=== PATIENT | female | born 1990 | race Caucasian/White ===

== ENCOUNTER 2018-07-17 17:10 | Outpatient (REF) | payer BC, SELFPAY ==
[2018-07-21 14:07] LABS: Chlamydia Result Negative; GC Result Negative; Specimen Description CERVIX
== END 2018-07-17 17:30 ==
LOC: LBN 17:10
PROVIDERS: Visit Provider Nurse Practitioner Women's Health
DX: Z11.3 Encounter for screening for infections with a predominantly sexual mode of transmission (principal)
CPT/HCPCS: 87491; 87591

== ENCOUNTER 2019-07-09 15:13 | Outpatient (REF) | payer BC, SELFPAY ==
[2019-07-12 08:26] LABS: HSV 1 DNA Result Negative (Negative)
[2019-07-13 12:29] LABS: HSV 2 DNA Result Negative (Negative)
== END 2019-07-09 15:33 ==
LOC: LBN 15:13
PROVIDERS: Visit Provider Nurse Practitioner Family
DX: N90.9 Noninflammatory disorder of vulva and perineum, unspecified (principal)
CPT/HCPCS: 87529

== ENCOUNTER 2019-08-24 12:17 | Outpatient (CLI) | payer BC, SELFPAY ==
[2019-08-24 14:03] LABS: TSH (W/Ref FT4) 28.58 uIU/mL (0.36-3.74)
[2019-08-24 14:20] LABS: FREE T4 0.81 ng/dL (0.76-1.46)
== END 2019-08-24 12:37 ==
PROVIDERS: Visit Provider Obstetrics & Gynecology
DX: E03.9 Hypothyroidism, unspecified (principal)
CPT/HCPCS: 36415; 84439; 84443

== ENCOUNTER 2020-09-20 10:53 | Outpatient (CLI) | payer BC, SELFPAY ==
[2020-09-20 12:50] LABS: ALT 40 U/L (14-59); AST 16 U/L (15-37); Albumin 4.2 g/dL (3.4-5.0); Alkaline Phosphatase 70 U/L (46-116); Anion Gap 9.8 mmol/L (3-11); BUN 12 mg/dL (7-18); Bilirubin, Total 0.7 mg/dL (0.2-1.0); CO2 24.2 mmol/L (21.0-32.0); CREATININE 0.8 mg/dL (0.55-1.02); Calcium 9.3 mg/dL (8.5-10.1); Calculated LDL 123 mg/dL (<100); Chloride 101 mmol/L (98-107); Cholesterol 198 mg/dL (<200); Glucose 83 mg/dL (74-106); HDL Cholesterol 42 mg/dL (40-60); Potassium 4.2 mmol/L (3.5-5.1); Sodium 135 mmol/L (136-145); TSH (W/Ref FT4) 22.77 uIU/mL (0.36-3.74); Total Protein 7.7 g/dL (6.4-8.2); Triglyceride 165 mg/dL (<150)
[2020-09-20 13:18] LABS: FREE T4 0.69 ng/dL (0.76-1.46)
== END 2020-09-20 10:54 | disposition home or self-care (01) ==
LOC: LOS 10:53
DX: Z00.00 Encounter for general adult medical examination without abnormal findings (principal); E03.9 Hypothyroidism, unspecified; Z13.220 Encounter for screening for lipoid disorders
CPT/HCPCS: 36415; 80053; 80061; 84439; 84443

== ENCOUNTER 2021-03-30 04:26 | Outpatient (CLI) | payer BC, SELFPAY ==
--- NOTE | 2021-03-30 15:34 | NS.NUTBLAN_ITS ---
Date of service: 03/30/21 Time of Service: 15:34 Nutritional Consult ASSESSMENT: Norma was referred for Medical Nutrition Therapy for weight management. 5'2 240 lbs, BMI 40 . PMH: morbid obesity, hypothyroidism, HTN, sleep apnea. Meds: levothyroixine 75 mg qd, HCTZ. Dx with sleep apnea but does not use CPAP at home. Recently restarted levothyroxine, had stopped it for a couple months. Norma reports her usual body weight is 195 lbs, has gained 45-50 lbs in last couple years (after starting current job). Follows weight watchers (31 points daily) with no weight loss in last year. Food record indicates she typically skips breakfast and prepares her lunch and dinner. Most food choices tend to be well balanced including protein, non starchy vegetables and healthy fats. Norma walks 2 miles a day. Suspect that Norma may be insulin resistant and therefore unable to lose weight despite eating well and exercing. NUTRITIONAL DIAGNOSIS: Morbid obesity with possible insulin resistance INTERVENTION: Provided education on lower carb, higher protein diet with 3 meals and 2 snacks daily meeting [id number] kcal, 80-100g carb, 60-70 g protein, 45-55 g fat. Continue to walk 7-14 miles weekly. Log meals on maryse (Total [employer]). Goal weight loss: 5-10 lbs per month with goal weight of 195 lbs in 6 months. Reviewed option of weight loss surgery if unable to meet weight loss goals in next 6 months. Encouraged Norma to use CPAP machine to aid in weight loss and to continue to take meds as prescribed for hypothryoidism. MONITORING AND EVALUATION: Check A1C at next blood draw to rule out PCOS/pre DM follow up scheduled for 05/04/21 at 3 pm Time Spent in Nutritional Counseling and Treatment: 60
== END 2021-03-30 04:27 | disposition home or self-care (01) ==
PROVIDERS: Visit Provider Dietitian, Registered
DX: E66.01 Morbid (severe) obesity due to excess calories (principal); E03.9 Hypothyroidism, unspecified; I10 Essential (primary) hypertension; Z68.41 Body mass index [BMI] 40.0-44.9, adult; Z71.3 Dietary counseling and surveillance
CPT/HCPCS: 97802

== ENCOUNTER 2021-09-15 14:57 | Outpatient (REF) | payer BC, SELFPAY ==
--- NOTE | 2021-09-15 14:30 | PAPFT_PTH ---
PATIENT: Norma Perez LOC: [facility] U#:[id number] AGE/SX: 30/F ROOM: RE09/15/[address]: UZAIR Richard : 1990 BED: DIS: 09/15/2021 SPEC #: [id number] RECD: 09/15/21 17:59 STATUS: SAHARA REJorge #: [id number] LILLIAM: 09/15/21 14:[address]: Edda Bai DEPT: [facility] Cytology RECD BY: Fariba Samayoa ENTERED: 09/15/21 18:00 SP TYPE: PAPFT OTHR DR: Hailee Lou APRN Tissues: 1 - CX/ENDOCX FOR PAP SMEARS Procedures: PAP THIN PREP/UVM Screening HPV DNA PROBE Comments: [id number]
== END 2021-09-15 14:58 | disposition home or self-care (01) ==
LOC: LBN 14:57
PROVIDERS: Visit Provider Nurse Practitioner Family
DX: Z12.4 Encounter for screening for malignant neoplasm of cervix (principal); Z11.51 Encounter for screening for human papillomavirus (HPV)
CPT/HCPCS: 88142; 87624

== ENCOUNTER 2021-10-15 10:02 | Emergency (ER) | payer BC, SELFPAY ==
[2021-10-15 10:07] VITALS: BP 148/78; PULSE 84; RESP 18; TEMP 36.6; O2SAT 97
--- NOTE | 2021-10-15 10:15 | DI.CT_ITS ---
Exam(s) CT ABDOMEN PELVIS W EXAM: CT ABDOMEN PELVIS W CLINICAL HISTORY: RUQ and epigastric pain. TECHNIQUE: Imaging Protocol: Axial computed tomography images with coronal and sagittal reformatted images were created and reviewed CONTRAST MATERIAL: Intravenous: Omnipaque 100cc Oral: None COMPARISON: No exams were available for comparison FINDINGS: VISUALIZED LUNG BASES: There is a 5 millimeter noncalcified nodule in the left lung base, specificall y in the lingular segment. No pleural effusions. ABDOMEN: There is no ascites. There is mild nonspecific streaking in the fat just anterior to the abdominal a paige between the takeoff points of the celiac and superior mesenteric arteries. No lymphadenopathy a t this level nor other para-aortic adenopathy. These vessels otherwise appear unremarkable. No evid ence of and significant atherosclerotic narrowing of these vessels nor SMA embolus. No ischemic appe aring bowel loops. There appears to be mild circumferential thickening of the duodenum, not associated with surrounding inflammatory change. No adjacent free air. No diverticulum. LIVER: Liver is hypodense implying steatosis. No discrete focal hepatic lesions. GALLBLADDER/BILIARY: No obvious gallbladder pathology. CBD is not dilated. PANCREAS: No evidence of pancreatic mass nor dilatation of the pancreatic duct. SPLEEN: Spleen is not enlarged. No obvious intrasplenic lesions. Splenic and portal veins are paten t. ADRENALS: There are no significant adrenal masses. KIDNEYS:No cysts evident. No solid renal masses. No calculi nor hydronephrosis.. ABDOMINAL AORTA: Abdominal aorta is not enlarged. LYMPH NODES:There is no retroperitoneal nor paraaortic adenopathy. ABDOMINAL WALL: No evidence of significant anterior abdominal wall nor inguinal hernia. GI: There is no evidence of bowel obstruction, free air, nor abscess. PELVIS: GI: Appendix is difficult to locate but there is no evidence of obvious acute appendicitis.No evidenc e of sigmoid diverticulitis. LYMPH NODES: There is no intrapelvic nor inguinal adenopathy. REPRODUCTIVE: Uterus size is normal. There is an IUD which appears to be in satisfactory position in the endometrial canal. Ovaries appear age-appropriate. No free fluid in the pelvis URINARY BLADDER: No calculi nor obvious masses evident OSSEOUS: No significant osseous lesions. Sacroiliac joints unremarkable. IMPRESSION: 1. There appears to be mild circumferential thickening of the duodenum without obvious surrounding in flammatory change. Possibly an element of duodenitis. 2. Mild nonspecific streaking anterior to the abdominal aorta between the takeoff points of the john c and superior mesenteric arteries. 3. IUD in satisfactory position within the uterine canal. No abnormal adnexal findings. No free flu id. 4. Incidental note of 5 millimeter noncalcified nodule in the left lung base. No pleural effusions. RADIATION DOSE DELIVERED: 1,416.64mGy.cm Total DLP DATA REPOSITORY: All CT scans at this facility are submitted to the National Radiology Data Registry (NRDR) Dose Index Registry (DIR) with the [employer] (ACR). RADIATION OPTIMIZATION: All CT scans at this facility use at least one of these dose optimization te chniques: automated exposure control; mA and/or kV adjustment per patient size (includes targeted exa ms where dose is matched to clinical indication); or iterative reconstruction.
--- NOTE | 2021-10-15 10:23 | ED.GENADUL_ITS ---
Discharge Plan Disposition Patient Disposition: HOME Condition: Stable Discharge Details Clinical Impression: Gastritis Primary Care Provider: Hailee Lou ED Provider: Fariba Timmons Home Meds and New Rx's Prescriptions: New sucralfate [Carafate] 1 gram tablet 1 g PO BID Qty: 60 0RF famotidine [Pepcid] 20 mg tablet 20 mg PO DAILY Qty: 14 0RF omeprazole magnesium [Prilosec OTC] 20 mg tablet,delayed release (DR/EC) 20 mg PO DAILY Qty: 30 0RF dicyclomine 20 mg tablet 20 mg PO TID Qty: 14 0RF ondansetron 4 mg tablet,disintegrating 4 mg PO BID-TID PRNQty: 10 0RF Continued levonorgestrel [Mirena] 20 mcg/24 hr (5 years) intrauterine device 1 insert IY ONCE 0RF levothyroxine [Synthroid] 75 mcg tablet 75 mcg PO DAILY Qty: 30 1RF valacyclovir [Valtrex] 1 gram tablet 1,000 mg PO Q12H PRN0RF hydrochlorothiazide 25 mg tablet 25 mg PO DAILY Qty: 30 3RF metronidazole 500 mg tablet 500 mg PO BID Qty: 14 0RF Discharge Instructions Instructions: Gastritis (ED) Additional Instructions: Have your urine rechecked by your doctor as there is some slight blood in it at your next visit You have a small nodule in your lung, this should be followed by your pcp Take the Carafate, Pepcid, and Prilosec as prescribed These medications will likely help your symptoms I am also writing you for nausea medication should you need it The Bentyl is for pain, if you have discomfort you may take the medication, if you start to become constipated, I recommend discontinuing this medication Schedule appointment with the surgeon listed below for endoscopy and return earlier should you have new or worsening complaints Referrals: Magi Bolanos MD [ [facility]YSICIAN] - 1 week Medical Decision Making Patient made aware regarding nodule in her lingula She also has 3-5 red blood cells She is instructed have your urinalysis rechecked by her primary care physician and follow-up on the pulmonary nodule She is feeling marked improvement She received 1 L of normal saline in the emergency department, antiemetic, tolerated p.o. challenge Return precautions discussed patient understanding, discharged home stable condition with antiemetic, CT scan shows evidence of duodenitis, placed on Pepcid, Prilosec, Carafate Surgery referral for endoscopy Discharge home in stable condition with stable Medical Records Medical records reviewed: Yes I reviewed the patient's medical records. Lab Data Lab results reviewed: Yes I reviewed the patient's lab results. HPI General Date/Time Provider Initiated Documentation: 10/15/21 10:11 . HPI Narrative: This 30-year-old female with past medical history of hypertension, hyperlipidemia presents with 3 days of abdominal pain. Followed by nausea and vomiting with diarrhea. Denies any known sick contacts. Denies any new medications. Denies any recent antibiotic use or spoiled food consumption. States that her abdominal pain was initially intermittent now constant. Denies fever. Denies cough or shortness of breath. Able to urinate without difficulty. Related Data Home Medications Medication Instructions Recorded Confirmed levonorgestrel 20 mcg/24 hours (7 1 insert IY ONCE 07/10/18 10/15/21 yrs) 52 mg intrauterine device (Mirena) levothyroxine 75 mcg tablet 75 mcg PO DAILY #30 tab 09/20/20 10/15/21 (Synthroid) valacyclovir 1 gram tablet 1,000 mg PO Q12H PRN tab 03/13/21 10/15/21 (Valtrex) hydrochlorothiazide 25 mg tablet 25 mg PO DAILY #30 tab 03/28/21 03/28/21 metronidazole 500 mg tablet 500 mg PO BID #14 tab 09/15/21 09/15/21 dicyclomine 20 mg tablet 20 mg PO TID #14 tab 10/15/21 famotidine 20 mg tablet (Pepcid) 20 mg PO DAILY #14 tab 10/15/21 omeprazole magnesium 20 mg 20 mg PO DAILY #30 tab 10/15/21 tablet,delayed release (Prilosec OTC) ondansetron 4 mg disintegrating 4 mg PO BID-TID PRN #10 tab 10/15/21 tablet sucralfate 1 gram tablet (Carafate) 1 g PO BID #60 tab 10/15/21 Previous Rx's Medication Instructions Recorded levothyroxine 75 mcg tablet 75 mcg PO DAILY #30 tab 09/20/20 (Synthroid) hydrochlorothiazide 25 mg tablet 25 mg PO DAILY #30 tab 03/28/21 metronidazole 500 mg tablet 500 mg PO BID #14 tab 09/15/21 dicyclomine 20 mg tablet 20 mg PO TID #14 tab 10/15/21 famotidine 20 mg tablet (Pepcid) 20 mg PO DAILY #14 tab 10/15/21 omeprazole magnesium 20 mg 20 mg PO DAILY #30 tab 10/15/21 tablet,delayed release (Prilosec OTC) ondansetron 4 mg disintegrating 4 mg PO BID-TID PRN #10 tab 10/15/21 tablet sucralfate 1 gram tablet (Carafate) 1 g PO BID #60 tab 10/15/21 Allergies Allergy/AdvReac Type Severity Reaction Status Date / Time sertraline AdvReac Mild diarrhea Verified 10/15/21 10:11 environmental allergies AdvReac Other (See Uncoded 10/15/21 10:11 Comment) General Stated Complaint: Abd Prob FRANK: 3 Review of Systems All systems reviewed & are unremarkable except as noted in HPI and below PFSH All Active Problems (Updated 10/15/21 @ 11:42 by SALTY Contreras) Gastritis (Acute) COVID-19 (Acute ~08/15/21) Essential hypertension (Acute) Increased body mass index (BMI) (Acute) Nasal sinus congestion (Acute) Bacterial vaginosis (Acute) Depression with anxiety (Acute) Rash and nonspecific skin eruption (Acute) IUD surveillance (Chronic) Herpes genitalis in women (Chronic) Hypothyroid (Chronic) Medical History Herpes genitalis in women Hypothyroid Increased body mass index (BMI) IUD surveillance Nasal sinus congestion Social History (Updated 03/28/21 @ 16:17 by Marcelle Redd) Smoking/Tobacco Use Status: Never Second Hand Exposure: No Smoking risk assessment performed?: Yes Alcohol Intake: current Alcohol Intake frequency: a few times a month Alcohol type: beer, wine and hard liquor Drug use: Never Substance use type: does not use Counseling given: No Counseling provided: none Caregiver/Support person: No Household members: significant other Communication Needs: None 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 [employer] Pets and animals: Yes Pets and animals: dog(s) Sexually active: Yes Do you think of yourself as: straight/heterosexual Current gender identity: male What is your relationship status?: living with partner How often do you talk on the phone with friends or family?: three or more times per week How often do you get together with friends or relatives?: once per week Do you belong to any clubs or organized social groups?: no Panel score (0-1 are the most socially isolated patients): 2 What type of physical activity do you participate in: walking Duration: 15-30 minutes/day Frequency: 5-6 times per week Kenna/Baptist: Jain Seatbelt use: always Helmet use: Yes Helmet use: always Drive intox or ride w/intox van driver helper: No Do you feel safe at home: Yes Do you feel safe in your relationship?: Yes Female Reproductive History Menstrual Age of Menarche: 15 Duration of menses: 3-5 days control method: progestin IUCD (Mirena IUD inserted by Rosa Vallejo NP [id number] EXP=10/2020) History History 1 Para Hx # Term Pregnancies Multiple births Hx # Pregnancies Ectopic pregnancies AB induced Hx Number of Living Children 0 AB spontaneous Exam Const General: cooperative, comfortable and no acute distress Orientation: alert and oriented x3 Resp Effort & Inspection: normal respiratory effort Cardio Rate: regular rate GI Inspection: normal to inspection Other: Bilateral upper quadrant abdominal tenderness, no rebound or guarding No CVA tenderness, no abdominal bruit or pulsatile mass Skin General skin exam: no rashes or lesions noted Neuro General: patient alert and patient oriented x3 Course Vital Signs Vital signs: Vital Signs Temperature 36.6 C 10/15/21 10:07 Pulse 84 10/15/21 10:07 Respiratory Rate 18 10/15/21 10:07 Blood Pressure 148/78 H 10/15/21 10:07 Pulse Oximetry 97 10/15/21 10:07 Temperature 36.6 C 10/15/21 10:07 Temperature Source Temporal Artery Scan 10/15/21 10:07 Pulse 84 10/15/21 10:07 Respiratory Rate 18 10/15/21 10:07 Respiratory Effort Non-Labored 10/15/21 10:12 Blood Pressure 148/78 H 10/15/21 10:07 Blood Pressure Position Sitting 10/15/21 10:07 Pulse Oximetry 97 10/15/21 10:07 Oxygen Delivery Method Room Air 10/15/21 10:07 Oxygen Flow Rate 0 10/15/21 10:07 PAWSS Have you Been Recently Intoxicated or Drunk Within the Last 30 days?: No Have you Ever Experienced Previous Episodes of Alcohol Withdrawal?: No Have you ever Experienced Withdrawal Seizures?: No Have you ever Experienced Delirium Tremens(DT)s?: No Have you ever undergone Alcohol Rehabilitation Treatment (i.e, inpt ot outpatient treatment programs)?: No Have you ever Experienced Blackouts?: No Have you ever Combined Alcohol with other Downers within the last 90 days?: No Have you ever Combined Alcohol with any other Substance of Abuse during the last 90 days?: No Positive Blood Alcohol level on Presentation? [PCS.BAL]: No Evidence of Increased Autonomic Activity (i.e. HR>120, tremor, sweating, agitation, nausea)?: No Result: 0
[2021-10-15] MEDS: Ondansetron 4 MG/2 ML VIAL IVP (10:24)
[2021-10-15] MEDS: Normal Saline 1,000 ML 1000 ML IV (10:25)
[2021-10-15 10:38] LABS: Abs Immature Grans 0.02 10^3/uL (0.0-0.06); Absolute Basophil Count 0.04 10^3/uL (0.0-0.2); Absolute Monocyte Count 0.66 10^3/uL (0.1-0.8); Basophils % 0.4; Eosinophils % 1.1; HCT 44.6 % (36.0-46.0); HGB 14.5 g/dL (11.2-15.7); Immature Grans % 0.2; Lymphocytes % 15.7; MCH 30.4 pg (27.0-33.0); MCHC 32.5 % (32.0-36.0); MCV 93.5 fL (80-95); MPV 8.7 fL (8.0-11.0); Monocytes % 7.4; Neutrophils % 75.2; Nucleated RBC 0 %; Platelet Count 381 10^3/uL (130-400); RBC 4.77 10^6/uL (3.93-5.22); RDW 12.9 % (11.7-14.6); RDW-SD 44.9 fL; WBC 8.92 10^3/uL (4.4-10.8)
[2021-10-15 10:50] LABS: ALT 33 U/L (14-59); AST 15 U/L (15-37); Albumin 4.3 g/dL (3.4-5.0); Alkaline Phosphatase 69 U/L (46-116); Anion Gap 12.3 mmol/L (3-11); BUN 12 mg/dL (7-18); Bilirubin, Total 0.7 mg/dL (0.2-1.0); CO2 23.7 mmol/L (21.0-32.0); Calcium 8.8 mg/dL (8.5-10.1); Chloride 104 mmol/L (98-107); Glucose 104 mg/dL (74-106); Lipase 67 U/L (73-393); Sodium 140 mmol/L (136-145); Total Protein 8.3 g/dL (6.4-8.2)
[2021-10-15 10:58] LABS: Bilirubin Negative (Negative); Blood Moderate (Negative); Clarity Clear (Clear); Glucose Negative (Negative); Ketones Negative (Negative); Leukocyte Esterase Negative (Negative); Nitrite Negative (Negative); Specific Gravity >= 1.030 (1.005-1.025); Urobilinogen 0.2 EU/dL (Up TO 0.2)
[2021-10-15] MEDS: Normal Saline Flush 10 ML SYR IVP (10:59)
[2021-10-15] MEDS: Omnipaque 350 MG/ML 100 ML BTL IJ (11:00)
[2021-10-15 11:08] LABS: WBC Negative HPF (0-5)
[2021-10-15 11:09] LABS: Bacteria Moderate HPF (Negative); C & S Indicated? No/Sq. Contamination; Crystals Negative HPF (Negative); Epithelial Cells Many HPF (Negative); Mucus Heavy (Negative)
--- NOTE | 2021-10-15 11:29 | DI.VRAD_ITS ---
PROCEDURE INFORMATION: Exam: CT Abdomen And Pelvis With Contrast Exam date and time: 10/15/2021 10:24 AM Age: 30 years old Clinical indication: Other: Ruq and epigastric pain TECHNIQUE: Imaging protocol: Computed tomography of the abdomen and pelvis with contrast. Radiation optimization: All CT scans at this facility use at least one of these dose optimization techniques: automated exposure control; mA and/or kV adjustment per patient size (includes targeted exams where dose is matched to clinical indication); or iterative reconstruction. Contrast material: OMNIPAQUE 350; Contrast volume: 100 ml; Contrast route: INTRAVENOUS (IV); COMPARISON: No relevant prior studies available. FINDINGS: Lungs: 6 mm solid nodule in the lingula (series 4, image 10). Heart: The visualized heart is within normal limits for size. There is no evidence of pericardial abnormality. Liver: There is a diffuse decrease in hepatic parenchymal density, consistent with fatty infiltration. Gallbladder and bile ducts: The gallbladder is distended with normal wall thickness and does not demonstrate calcified gallstones. No intra- or extra-hepatic biliary ductal dilatation. Pancreas: The pancreas appears normal. Spleen: The spleen appears normal. Adrenal glands: The adrenals appear normal. Kidneys and ureters: The kidneys enhance symmetrically and empty into non-dilated ureters. Stomach and bowel: The stomach is appropriately distended and without wall abnormalities. Mild circumferential thickening of the duodenum without surrounding inflammatory change identified. The small bowel loops are not abnormally dilated and demonstrate no focal wall thickening. The large bowel loops are not abnormally dilated and demonstrate no focal wall thickening. Appendix: The appendix appears normal. Intraperitoneal space: No ascites or significant fluid collection. Vasculature: The aorta is nonaneurysmal. The IVC appears normal. Lymph nodes: There are no enlarged lymph nodes. Urinary bladder: The urinary bladder is not well distended, therefore not well evaluated. Reproductive: The ovaries appear normal. Intrauterine device in appropriate location. Bones/joints: Unremarkable. Soft tissues: Unremarkable. IMPRESSION: 1. Mild circumferential thickening of the duodenum without surrounding inflammatory change identified. Findings may be consistent with mild duodenitis. 2. Hepatic steatosis. 3. 6 mm solid nodule in the lingula. For patients at low risk (minimal or absent history of smoking and of other known risk factors), recommend CT Chest at 6-12 months, then consider CT Chest at 18-24 months. For patients at high risk (history of smoking or of other known risk factors), recommend CT Chest at 6-12 months, then CT Chest at 18-24 months. (Reference: Margarita) REFERENCES: Margarita Luke, et al. Guidelines for Management of Incidental Pulmonary Nodules Detected on CT Images: From the Fleischner Society 2017. Radiology. 2017;284(1):228-243. Dictated and Authenticated by: Mayur Bearden MD. Ordering:RIKKI Link MD
[2021-10-15 11:37] VITALS: BP 134/71; PULSE 76; RESP 18; TEMP 36.7; O2SAT 97
[2021-10-15] MEDS: Dicyclomine 20 MG TAB PO (11:45)
[2021-10-15] MEDS: Ketorolac 15 MG/ML VIAL IVP (11:46)
--- NOTE | 2021-10-16 14:48 | PDOC.ERCMACT ---
- If Service Date Differs Date of service: 10/16/21 Time of Service: 14:48 Care Management Activity Note Norma is seen in the ED for gastritis. At the request of ED provider, CM coordinates a referral to [facility] to assist Norma in obtaining an appointment for an endoscopy.
== END 2021-10-15 12:15 | disposition home or self-care (01) ==
PROVIDERS: Emergency Provider Physician Assistant
DX: K29.00 Acute gastritis without bleeding (principal); R91.1 Solitary pulmonary nodule; R10.11 Right upper quadrant pain; R10.13 Epigastric pain
CPT/HCPCS: 80053; 81025; 83690; 96361; 96374; 96375; 99285; 74177; 81003; 81015; 85025; 99284; J1885; J2405; J3490

== ENCOUNTER 2022-03-28 16:53 | Outpatient (REF) | payer BC, SELFPAY ==
[2022-03-30 15:25] LABS: Chlamydia Result Negative (Negative); GC Result Negative (Negative)
== END 2022-03-28 16:54 | disposition home or self-care (01) ==
LOC: LBN 16:53
PROVIDERS: Visit Provider Nurse Practitioner Women's Health
DX: N76.0 Acute vaginitis (principal); Z11.3 Encounter for screening for infections with a predominantly sexual mode of transmission
CPT/HCPCS: 87491; 87591; 87480; 87510; 87660

== ENCOUNTER 2022-08-24 14:35 | Outpatient (CLI) | payer BC, SELFPAY ==
--- OUTSIDE RECORDS SUMMARY | 2022-08-24 14:38 | XMS_ITS | Continuity of Care Document ---
:1990 Author Organization [facility] Address [address] [place] [address] Care Team Providers Name Role Phone PCP, of Choice Primary Care Physician Unavailable Allergies, Adverse Reactions, Alerts No known allergies. Medications Active Medications Medication Dose Units Route Sig Qty Days Start Date St atus Levothyroxine [Synthroid] 225 MCG ORAL DAILY November 14, 2016 Active valacyclovir November 26, 2 018 Active Discontinued Medications Medication Dose Units Route Sig Qty Days Start Discontinued Status Date Date Amoxicillin-Pot 1 TAB ORAL TWICE A 28 14 November Discontinued Clavulanate DAY 2016 [Augmentin] Problem List Active Problems Medical Problem Onset Date Status Contusion of toe of right foot Active Procedures Procedure Date Status Foot 3 vw Min RT November 26, 2017 completed Campylobacter Culture March 29, 2017 completed Salmonella/Shigella Culture March 29, 2017 completed MRI RT Lower Ext Jt w/o Cont January 08, 2017 completed Relevant Diagnostic Tests and/or Laboratory Data Laboratory Results Test Date/Time Result Interp. Ref. Range Result Comment White Blood Count March 29, 9.98 1000/mm3 4.8-10.8 2016 5:05pm Red Blood Count March 29, 4.51 M/mm3 4.20-5.40 2016 5:05pm Hemoglobin March 29, 13.8 g/dL 12.0-16.0 2016 5:05pm Hematocrit March 29, 42.2 % 37-47 2016 5:05pm Mean Corpuscular March 29, 93.6 fL 81.0-99.0 Volume 2016 5:05pm Mean Corpuscular March 29, 30.6 pg 27-31 Hemoglobin 2016 5:05pm Mean Corpuscular March 29, 32.7 g/dL Low 33-37 Hemoglobin Concent 2017 5:05pm Red Cell Distribution March 29, 12.0 % 11.5-14.5 Width 2017 5:05pm Platelet Count March 29, 359 1000/mm3 535-331 4580 5:05pm Mean Platelet Volume March 29, 9.8 fL 7.4-10.4 2016 5:05pm Neutrophils (%) (Auto) March 29, 69.1 % 40.0-72.0 2017 5:05pm Lymphocytes (%) (Auto) March 29, 19.9 % 17-45 2017 5:05pm Monocytes (%) (Auto) March 29, 9.1 % 3-11 2017 5:05pm Eosinophils (%) (Auto) March 29, 1.0 % 0-3 2016 5:05pm Basophils (%) (Auto) March 29, 0.9 % 0-1 2016 5:05pm Neutrophils # (Auto) March 29, 6.89 1000/mm3 High 1.4-6.5 2016 5:05pm Lymphocytes # (Auto) March 29, 1.99 1000/mm3 1.2-3.4 2016 5:05pm Monocytes # (Auto) March 29, 0.91 1000/mm3 High 0.0-0.8 2016 5:05pm Eosinophils # (Auto) March 29, 0.10 1000/mm3 0.0-0.7 2016 5:05pm Basophils # (Auto) March 29, 0.09 1000/mm3 0.0-0.1 2016 5:05pm Differential Method March 29, Automated 2016 5:05pm Urine Color March 29, yellow 2016 5:05pm Urine Clarity March 29, clear 2016 5:05pm Urine pH March 29, 7.0 2017 5:05pm Urine Specific [place] March 29, 1.010 2017 5:05pm Urine Protein March 29, Negative mg/dL 2016 5:05pm Urine Glucose (UA) March 29, Normal mg/dL 2016 5:05pm Urine Ketones March 29, Negative 2016 5:05pm Urine Nitrate March 29, Negative 2016 5:05pm Urine Bilirubin March 29, Negative mg/dL 2016 5:05pm Urine Urobilinogen March 29, Normal mg/dL 2016 5:05pm Urine Leukocyte March 29, Negative Esterase 2016 5:05pm WBC/uL Urine Blood March 29, Negative 2016 5:05pm TRINY/uL Urine RBC March 29, 0-2 /hpf 2016 5:05pm Urine WBC March 29, 0-2 /hpf 2016 5:05pm Urine Squamous March 29, 1+ /hpf Epithelial Cells 2016 5:05pm Urine Bacteria March 29, None seen /hpf 2016 5:05pm Sodium Level March 29, 139 mmol/L 090-032 0672 5:05pm Potassium Level March 29, 4.2 mmol/L 3.6-5.0 2016 5:05pm Chloride Level March 29, 101 mmol/L 98-107 2016 5:05pm Carbon Dioxide Level March 29, 25 mmol/L -2016 5:05pm Anion Gap March 29, 13 7-16 2016 5:05pm Blood Urea Nitrogen March 29, 14 mg/dL -2016 5:05pm Creatinine March 29, 0.7 mg/dL 0.52-1.04 2016 5:05pm Glomerular Filtration March 29, > 60 mL/min Rate Calc 2016 5:05pm Glucose Level March 29, 90 mg/dL 70-100 2016 5:05pm Calcium Level March 29, 9.9 mg/dL 8.4-10.2 2016 5:05pm Calcium Adjusted for March 29, 9.7 mg/dL 8.4-10.2 Albumin 2017 5:05pm Total Bilirubin March 29, 0.6 mg/dL 0.2-1.3 2016 5:05pm Aspartate Amino Transf March 29, 17 U/L 14-36 (AST/SGOT) 2017 5:05pm Alanine March 29, 28 U/L 9-52 Aminotransferase 2016 5:05pm (ALT/SGPT) Total Protein March 29, 7.6 g/dL 6.3-8.2 2016 5:05pm Albumin March 29, 4.6 g/dL 3.5-5.0 2016 5:05pm Alkaline Phosphatase March 29, 58 U/L 38-126 2017 5:05pm Thyroid Stimulating March 29, 31.0 mlU/L High 0.47-4.68 TSH c ascade is Hormone (TSH) 2017 5:05pm not recomm ended for patients i n which pituitar y or hypothalmic disorders are suspected. Free Thyroxine March 29, 0.59 ng/dL Low 0.78-2.19 2016 5:05pm Helicobacter pylori March 29, Negative Resul t indicates the absence of current Helicobacter pylori Breath Test 2017 5:05pm infection. Test Performed by: [facility] [address] , [place] [address] Hepatitis B Surface February 22, [address] Performed by: Antigen 8:43[place] [address] Senior Cognos Developer: Kayode Lester MD , Ph D Hepatitis B Surface February 22, 2017 Positive R eference Range: Antibody 8:43pm Unvaccinated: Negative Vaccinated: P ositive Patient is pr esumed to be immune to infection wit h HBV. Hepatitis B Surface February 22, 2017 12.8 mIU/mL Reference Range: Antibody, Quant 8:43pm Positive : >=10.0 mIU/mL Negative: <10 .0 mIU/mL Patient is pr esumed to be immune to infection wit h HBV. Test Performed by: [place] [address] Senior Cognos Developer: Kayode Lester MD , Ph D Hepatitis C Antibody February 22, 2017 Negative T est Performed by: 8:43pm [place] [address] Senior Cognos Developer: Kayode Lester MD , Ph D Microbiology Results Procedure Source Result Collection Result Date/Lico e Date/Time Campylobacter Culture Stool NO CAMPYLOBACTER March 29, 2017 SPECIES ISOLATED. 9:45am Salmonella/Shigella Stool NO SALMONELLA OR March 29, 2017 Culture SHIGELLA SPECIES 9:45am ISOLATED. Advance Directives Advance Directive Response Recorded Date/Time Do we have a copy on file here at [facility]? No A [facility] 2016 10:20am Does patient have an Advanced Directive? No October 17, 2011 10:30am Pt has a Living Will? No October 17, 2011 10: 30am Pt has a Power of Hot Press Operator? No October 16 10:30am Hospital Discharge Instructions Additional Discharge Instructions Your Xray today reve aled no fracture at this time You likely have a soft tissu e injury Ibuprofen and Tylenol with f ood as needed for pain Ice x 20 minutes every 2-3 h ours as needed Keep area elevated to decrea sed swelling Gentle range of motion exerc ises as tolerated and discussed. Follow upw ith your PCP in 5 -7 days to make sure you are healing well If you have any changes in s welling, pain, sensation, or inability to move the joint you should follow up with a medical provider immediately. ??? Instruction/Education Provided Contusion Bone Tx Hospital Discharge Medications Medication Dose Units Route Sig Qty Days Order Status Instru ctions Date Levothyroxine 225 MCG ORAL DAILY November Amoxicillin-Pot 1 TAB ORAL TWICE A November Discont inued Clavulanate 2016 valacyclovir November Encounters Encounter Facility Location Admit/Visit Discharge/Departure Atte nding Date Date Provider Departed [facility] November 26, November 26, 2017 3:[facility] 2016 8:16pm 9:10pm [facility]March 29, [facility] 11:35am 11:36[facility], 2017 February 22, 2017 [facility] February 21, 2017 March 27, [facility] 20, 2017 February 20, 2017 10:43p m [facility], 2017 January 08, 2017 [facility] Functional Status No known functional status. Immunizations No known immunizations. Payers Payer Name Policy Type Covered Covered Relationship Subscriber Sub scriber Libertarian Libertarian Id Id PADMINI RUTH DOCUSYS ERAN [id number] Self/Same as ERAN ARTIS [id number] OUT OF STATE CHANDRA 36 Patient FINANCIAL Personal ASSISTANCE [facility] PADMINI DICKSON [id number] Child-Son/Daugh RANDOLPH ARTIS [id number] FARAZ (DO NOT CHANDRA ter USE) SELF PAY Personal Plan of Care Instructions Contusion Bone Tx Social History Query Response Start Date Stop Date Smoking Status Never smoker Vital Signs Vital Reading Result Reference Range Collection Date/ Time Height n/a Weight 81.647 kg November 26, 2017 3 :06pm Temperature 98.3 F 97.6 F-99.6 F November 26, 2017 3 :06pm Pulse 71 BPM 60-100 November 26, 2017 3 :06pm Respiration 18 RPM 12-November 26, 2017 3 :06pm Pulse Oximetry 98 % 95-100 November 26, 2017 3 :06pm Blood Pressure Systolic 120 100-140 November 3:06pm Blood Pressure Diastolic 90 50-85 November 042017 3:06pm Body Mass Index n/a
--- OUTSIDE RECORDS SUMMARY | 2022-08-24 14:38 | XMS_ITS | Continuity of Care Document ---
:1990 Author Organization [facility] Address [address] [place] [address] Care Team Providers Name Role Phone PCP, of Choice Primary Care Physician Unavailable Allergies, Adverse Reactions, Alerts No known allergies. Medications Active Medications Medication Dose Units Route Sig Qty Days Start Date St atus Levothyroxine [Synthroid] 225 MCG ORAL DAILY November 14, 2016 Active valacyclovir November 26 018 Active Discontinued Medications Medication Dose Units Route Sig Qty Days Start Discontinued Status Date Date Amoxicillin-Pot 1 TAB ORAL TWICE A 28 14 November Discontinued Clavulanate DAY 2016 [Augmentin] Problem List Inactive/Resolved Problems Medical Problem Onset Date Status Contusion of toe of right foot Inactive Procedures Procedure Date Status Foot 3 vw Min RT November 26, 2017 completed Campylobacter Culture March 29, 2017 completed Salmonella/Shigella Culture March 29, 2017 completed Relevant Diagnostic Tests and/or Laboratory Data Laboratory Results Test Date/Time Result Interp. Ref. Range Result Comment White Blood Count January 02, 2018 TNP Test not performed 12:17pm Unable to perf orm requested CBC testing due to specimen too old to process. Red Blood Count January 02, 2018 TNP Test no t performed 12:17pm Unable to perf orm requested CBC testing due to specimen too old to process. Hemoglobin January 02, 2018 TNP Test not per formed 12:17pm Unable to perf orm requested CBC testing due to specimen too old to process. Hematocrit January 02, 2018 TNP Test not per formed 12:17pm Unable to perf orm requested CBC testing due to specimen too old to process. Mean Corpuscular January 02, 2018 TNP Test n ot performed Volume 12:17pm Unable to perf orm requested CBC testing due to specimen too old to process. Mean Corpuscular January 02, 2018 TNP Test n ot performed Hemoglobin 12:17pm Unable to perf orm requested CBC testing due to specimen too old to process. Mean Corpuscular January 02, 2018 TNP Test n ot performed Hemoglobin Concent 12:17pm Unable to perform requested CBC testing due to specimen too old to process. Red Cell Distribution January 02, 2018 TNP T est not performed Width 12:17pm Unable to perf orm requested CBC testing due to specimen too old to process. Platelet Count January 02, 2018 TNP Test not performed 12:17pm Unable to perf orm requested CBC testing due to specimen too old to process. Mean Platelet Volume January 02, [address] not performed 12:17pm Unable to perf orm requested CBC testing due to specimen too old to process. Neutrophils (%) (Auto) March 29, 69.1 % 40.0-72.0 2016 5:05pm Lymphocytes (%) (Auto) March 29, 19.9 % 17-45 2016 5:05pm Monocytes (%) (Auto) March 29, 9.1 % 3-11 2017 5:05pm Eosinophils (%) (Auto) March 29, 1.0 % 0-3 2017 5:05pm Basophils (%) (Auto) March 29, 0.9 % 0-1 2017 5:05pm Neutrophils # (Auto) March 29, 6.89 1000/mm3 High 1.4-6.5 2017 5:05pm Lymphocytes # (Auto) March 29, 1.99 1000/mm3 1.2-3.4 2016 5:05pm Monocytes # (Auto) March 29, 0.91 1000/mm3 High 0.0-0.8 2016 5:05pm Eosinophils # (Auto) March 29, 0.10 1000/mm3 0.0-0.7 2017 5:05pm Basophils # (Auto) March 29, 0.09 1000/mm3 0.0-0.1 2016 5:05pm Differential Method March 29, Automated 2016 5:05pm Urine Color March 29, yellow 2016 5:05pm Urine Clarity March 29, clear 2016 5:05pm Urine pH March 29, 7.0 2017 5:05pm Urine Specific [place] March 29, 1.010 2017 5:05pm Urine Protein [...] None seen /hpf 2016 5:05pm Sodium Level January 02, 2018 139 mmol/L 137-145 12:17pm Potassium Level January 02, 2018 4.2 mmol/L 3.6-5.0 12:17pm Chloride Level January 02, 2018 106 mmol/L 98-107 12:17pm Carbon Dioxide Level January 02, 2018 22 mmol/L 22-30 12:17pm Anion Gap January 02, 2018 11 7-16 12:17pm Blood Urea Nitrogen January 02, 2018 13 mg/dL 7-17 12:17pm Creatinine January 02, 2018 0.66 mg/dL 0.52-1.04 12:17pm Glomerular Filtration January 02, 2018 > 60 mL/min 60.0- Rate Calc 12:17pm Glucose Level January 02, 2018 82 mg/dL 70-100 12:17pm Calcium Level January 02, 2018 9.8 mg/dL 8.4-10.2 12:17pm Calcium Adjusted for January 02, 2018 9.3 mg/dL 8.4-10.2 Albumin 12:17pm Total Bilirubin January 02, 2018 1.0 mg/dL 0.2-1.3 12:17pm Aspartate Amino Transf January 02, 2018 18 U/L 14-36 (AST/SGOT) 12:17pm Alanine January 02, 2018 20 U/L 9-52 Aminotransferase 12:17pm (ALT/SGPT) Total Protein January 02, 2018 7.6 g/dL 6.3-8.2 12:17pm Albumin January 02, 2018 4.9 g/dL 3.5-5.0 12:17pm Cholesterol Level January 02, 2018 182 mg/dL 59-199 12:17pm HDL Cholesterol January 02, 2018 57 mg/dL 40-60 The [place] ional Cholesterol Education Program (NCEP) has set the following guidelines (reference values) for cholesterol, HDL: 12:17pm Low HDL: <40 m g/dL Normal: 40-60 mg/dL Desirable: >60 mg/dL LDL Cholesterol January 02, 2018 99.2 mg/dL 0-129 12:17pm VLDL Cholesterol January 02, 2018 25.8 mg/dL 0-32 12:17pm Cholesterol/HDL Ratio January 02, 2018 3.19 0-3.9 12:17pm Triglycerides Level January 02, 2018 129 mg/dL 0-149 12:17pm Alkaline Phosphatase January 02, 2018 55 U/L 38-126 12:17pm Thyroid Stimulating January 02, 2018 20.7 mlU/L High 0.47-4.68 TSH cascade is Hormone (TSH) 12:17pm not recomme nded for patients i n which pituitar y or hypothalmic disorders are suspected. Free Thyroxine January 02, 2018 0.77 ng/dL Low 0.78-2.19 12:17pm Helicobacter pylori March 29 Resul t indicates the absence of current Helicobacter pylori Breath Test 2016 5:05pm infection. Test Performed by: [facility] [place] [address] [place] [address] Hepatitis B Surface February 22, [address] Performed by: Antigen 8:43[place] [address] Costume Technician: Kayode Lester MD , Ph D Hepatitis [...] wit h HBV. Test Performed by: THE [address] [address] Costume Technician: Kayode Lester MD , Ph D Hepatitis C Antibody February 22, 2017 Negative T est Performed by: 8:43pm [place] [address] Costume Technician: Kayode Lester MD , Ph D Microbiology Results Procedure Source Result Collection Result Date/Lico e Date/Time Campylobacter Culture Stool NO CAMPYLOBACTER March 29, 2017 SPECIES ISOLATED. 9:45am Salmonella/Shigella Stool NO SALMONELLA OR March 29, 2017 Culture SHIGELLA SPECIES 9:45am ISOLATED. Advance Directives Advance Directive Response Recorded Date/Time Do we have a copy on file here at [facility]? No [facility] 2016 10:20am Does patient have an Advanced Directive? No October 17, 2011 10:30am Pt has a Living Will? No October 17, 2011 10: 30am Pt has a Power of Assistant [employer]m Of Content [employer] Delivery? No October 16 10:30am Hospital Discharge Instructions [...] Discharge/Departure Atte nding Date Date Provider Departed [facility] January 02, 2018 January 02, 2018 12[facility] Ragini Departed [facility] November 26November 26, 2017 3:58pm [facility] 2017 2[facility] July 04July [facility], [facility] Department 2017 8:16pm 9:10pm Departed [facility] March 29March 29, 2017 Danelle major, [facility] 2016 4:45pm 4:46pm Dahiana Departed [facility] March 29March 29, 2017 Kar salvador, [facility] 2016 11:35am 11:36am Dahiana Departed [facility] February 22, 2017 February 22, 2017 9: 13pm Ananya, [facility] 9:12pm Andreia Discharged [facility] February 21, 2017 March 27, 2017 Katrin nichols, [facility] 4:45pm 4:21pm [facility] February 20, 2017 February 20, 2017 10:43p m [facility] Department 9:57pm Functional Status No known functional status. Immunizations No known immunizations. Payers Payer Name Policy Type Covered Covered Relationship Subscriber Sub scriber Alliance Party Alliance Party Id Id PADMINI RUTH Commercial ERAN [id number] Self/Same as ERAN ARTIS [id number] OUT OF STATE CHANDRA 37 Patient FINANCIAL Personal ASSISTANCE [employer] PADMINI DICKSON [id number] Child-Son/Daugh RANDOLPH ARTIS [id number] CROSS (DO NOT CHANDRA ter USE) SELF PAY [...]
--- OUTSIDE RECORDS SUMMARY | 2022-08-24 14:38 | XMS_ITS | Continuity of Care Document ---
:[address] [facility] Address [address] [place] [address] Care Team Providers Name Role Phone PCP, of Choice Primary Care Physician Unavailable Ragini Agarwal Attending Physician Allergies, Adverse Reactions, Alerts No known allergies. [...] # (Auto) March 29, 1.99 1000/mm3 1.2-3.4 2017 5:05pm Monocytes # (Auto) March 29, 0.91 1000/mm3 High 0.0-0.8 2017 5:05pm Eosinophils # (Auto) March 29, 0.10 1000/mm3 0.0-0.7 2017 5:05pm Basophils # (Auto) March 29, 0.09 1000/mm3 0.0-0.1 2016 5:05pm Differential Method March 29, Automated 2016 5:05pm Urine Color March 29, yellow 2016 5:05pm Urine Clarity March 29, clear 2016 5:05pm Urine pH March 29, 7.0 2017 5:05pm Urine Specific [place] March 29, 1.010 2017 5:05pm Urine Protein [...] ng/dL Low 0.78-2.19 12:17pm Helicobacter pylori March 29, Negative Resul t indicates the absence of current Helicobacter pylori Breath Test 2016 5:05pm infection. Test Performed by: [facility] [address] [facility] [place] [address] Hepatitis B Surface February 22, [address] Performed by: Antigen 8:43[place] [address] Parquetry Floor Layer: Kayode Lester MD , Ph D Hepatitis [...] wit h HBV. Test Performed by: [place] [address] Parquetry Floor Layer: Kayode Lester MD , Ph D Hepatitis C Antibody February 22, 2017 Negative T est Performed by: 8:43pm THE [address] [place] [address] Parquetry Floor Layer: Kayode Lester MD , Ph D Microbiology Results Procedure Source Result Collection Result Date/Lico e Date/Time Campylobacter Culture Stool NO CAMPYLOBACTER March 29, 2017 SPECIES ISOLATED. 9:45am Salmonella/Shigella Stool NO SALMONELLA OR March 29, 2017 Culture SHIGELLA SPECIES 9:45am ISOLATED. Advance Directives Advance Directive Response Recorded Date/Time Do we have a copy on file here at [facility]? No A [facility] 2016 10:20am Does patient have an Advanced Directive? No October 17, 2011 10:30am Pt has a Living Will? No October 17, 2011 10: 30am Pt has a Power of Cardiopulmonary Technician And Eeg Tech? No October 16 10:30am Hospital Discharge Instructions No known hospital discharge instructions. Hospital Discharge Medications Medication Dose Units Route Sig Qty Days Order Status Instru ctions Date Levothyroxine 225 MCG ORAL DAILY November Amoxicillin-Pot 1 TAB ORAL TWICE A November Discont inued Clavulanate 2016 valacyclovir November Encounters Encounter Facility Location Admit/Visit Discharge/Departure Atte nding Date Date Provider Departed [facility] January 02, 2018 January 02, 2018 [facility] November 26November 26, 2017 3:[facility]pm [facility] 2017 2:[facility]July [facility], [facility] 8[facility] 4:46[facility], [facility] 11:35am 11:36am [facility] February 22, 2017 February 22, 2017 [facility] February 21, 2017 March 27, [facility] 4[facility] 20, 2017 February 20, 2017 10:43p m [facility] Department 9:57pm Departed [facility] January 08, 2017 January 08, 2017 7:45pm [facility] Functional Status No known functional status. Immunizations No known immunizations. Payers Payer Name Policy Type Covered Covered Relationship Subscriber Sub scriber Alliance Party Alliance Party Id Id PADMINI BARILLAS [id number] Self/Same as ERAN ARTIS [id number] OUT OF STATE CHANDRA 37 Patient FINANCIAL Personal ASSISTANCE FEP PADMINI DICKSON [id number] Child-Son/Daugh RANDOLPH ARTIS [id number] CROSS (DO NOT CHANDRA ter USE) SELF PAY Personal Plan of Care No Known Plan of Care Information Social History Query Response Start Date Stop [...]
--- OUTSIDE RECORDS SUMMARY | 2022-08-24 14:38 | XMS_ITS | Continuity of Care Document ---
:1990 Author Organization [facility] Address [address] [place] [address] Care Team Providers Name Role Phone Onelia Chow Primary Care Physician Dahiana Goodrich Attending Physician Unavailable Allergies, Adverse Reactions, Alerts Allergen Type Severity Reaction Last Updated Verified Status No Known Allergies Allergy February 20, 2017 Y Active Medications Active Medications Medication Dose Units Route Sig Qty Days Start Date St atus Levothyroxine [Synthroid] 225 mcg ORAL DAILY November 14, 2016 Active Discontinued Medications Medication Dose Units Route Sig Qty Days Start Discontinued Status Date Date Amoxicillin-Pot 1 TAB ORAL TWICE A 28 November Discontinued Clavulanate DAY 2016 [Augmentin] Problem List No problem information available. Procedures Procedure Date Status Salmonella/Shigella Culture March 29, 2017 active Campylobacter Culture March 29, 2017 active MRI RT Lower Ext Jt w/o Cont January 08, 2017 completed Knee 1 or 2 vw RT November 22, [address] Head w/o Contrast November 14, 2016 completed Reason for Referral Reason for Referral Date Referral Provider Office Contact Locat ion was Provided Relevant Diagnostic Tests and/or Laboratory Data Laboratory Results Test Date/Time Result Interp. Ref. Range Result Comment White Blood Count March 29, 2017 9.98 1000/mm3 4.8-10.8 5:05pm Red Blood Count March 29, 2017 4.51 M/mm3 4.20-5.40 5:05pm Hemoglobin March 29, 2017 13.8 g/dL 12.0-16.0 5:05pm Hematocrit March 29, 2017 42.2 % 37-47 5:05pm Mean Corpuscular March 29, 2017 93.6 fL 81.0-99.0 Volume 5:05pm Mean Corpuscular March 29, 2017 30.6 pg 27-31 Hemoglobin 5:05pm Mean Corpuscular March 29, 2017 32.7 g/dL Low 33-37 Hemoglobin Concent 5:05pm Red Cell Distribution March 29, 2017 12.0 % 11.5-14.5 Width 5:05pm Platelet Count March 29, 2017 359 1000/mm3 140-440 5:05pm Mean Platelet Volume March 29, 2017 9.8 fL 7.4-10.4 5:05pm Neutrophils (%) (Auto) March 29, 2017 69.1 % 40.0-72. 0 5:05pm Lymphocytes (%) (Auto) March 29, 2017 19.9 % 17-45 5:05pm Monocytes (%) (Auto) March 29, 2017 9.1 % 3-11 5:05pm Eosinophils (%) (Auto) March 29, 2017 1.0 % 0-3 5:05pm Basophils (%) (Auto) March 29, 2017 0.9 % 0-1 5:05pm Neutrophils # (Auto) March 29, 2017 6.89 1000/mm3 High 1.4-6.5 5:05pm Lymphocytes # (Auto) March 29, 2017 1.99 1000/mm3 1.2-3.4 5:05pm Monocytes # (Auto) March 29, 2017 0.91 1000/mm3 High 0.0-0.8 5:05pm Eosinophils # (Auto) March 29, 2017 0.10 1000/mm3 0.0-0.7 5:05pm Basophils # (Auto) March 29, 2017 0.09 1000/mm3 0.0-0.1 5:05pm Differential Method March 29, 2017 Automated 5:05pm Urine Color March 29, 2017 yellow 5:05pm Urine Clarity March 29, 2017 clear 5:05pm Urine pH March 29, 2017 7.0 5:05pm Urine Specific [place] March 29, 2017 1.010 5:05pm Urine Protein March 29, 2017 Negative mg/dL 5:05pm Urine Glucose (UA) March 29, 2017 Normal mg/dL 5:05pm Urine Ketones March 29, 2017 Negative 5:05pm Urine Nitrate March 29, 2017 Negative 5:05pm Urine Bilirubin March 29, 2017 Negative mg/dL 5:05pm Urine Urobilinogen March 29, 2017 Normal mg/dL 5:05pm Urine Leukocyte March 29, 2017 Negative Esterase 5:05pm WBC/uL Urine Blood March 29, 2017 Negative 5:05pm TRINY/uL Urine RBC March 29, 2017 0-2 /hpf 5:05pm Urine WBC March 29, 2017 0-2 /hpf 5:05pm Urine Squamous March 29, 2017 1+ /hpf Epithelial Cells 5:05pm Urine Bacteria March 29, 2017 None seen /hpf 5:05pm Sodium Level March 29, 2017 139 mmol/L 137-145 5:05pm Potassium Level March 29, 2017 4.2 mmol/L 3.6-5.0 5:05pm Chloride Level March 29, 2017 101 mmol/L 98-107 5:05pm Carbon Dioxide Level March 29, 2017 25 mmol/L 22-30 5:05pm Anion Gap March 29, 2017 13 7-16 5:05pm Blood Urea Nitrogen March 29, 2017 14 mg/dL 7-17 5:05pm Creatinine March 29, 2017 0.7 mg/dL 0.52-1.04 5:05pm Glomerular Filtration March 29, 2017 > 60 mL/min Rate Calc 5:05pm Glucose Level March 29, 2017 90 mg/dL 70-100 5:05pm Calcium Level March 29, 2017 9.9 mg/dL 8.4-10.2 5:05pm Calcium Adjusted for March 29, 2017 9.7 mg/dL 8.4-10.2 Albumin 5:05pm Total Bilirubin March 29, 2017 0.6 mg/dL 0.2-1.3 5:05pm Aspartate Amino Transf March 29, 2017 17 U/L 14-36 (AST/SGOT) 5:05pm Alanine March 29, 2017 28 U/L 9-52 Aminotransferase 5:05pm (ALT/SGPT) Total Protein March 29, 2017 7.6 g/dL 6.3-8.2 5:05pm Albumin March 29, 2017 4.6 g/dL 3.5-5.0 5:05pm Cholesterol Level November 22, 2016 166 mg/dL 59-199 2:30pm HDL Cholesterol November 22, 2016 56 mg/dL 40-[address] [facility] Cholesterol Education Program (NCEP) has set the following guidelines (reference values) for cholesterol, HDL: 2:30pm Low HDL: <40 m g/dL Normal: 40-60 mg/dL Desirable: >60 mg/dL LDL Cholesterol November 22, 2016 89.6 mg/dL 0-129 2:30pm VLDL Cholesterol November 22, 2016 20.4 mg/dL 0-32 2:30pm Cholesterol/HDL Ratio November 22, 2016 2.96 0-3.9 2:30pm Triglycerides Level November 22, 2016 102 mg/dL 0-149 2:30pm Alkaline Phosphatase March 29, 2017 58 U/L 38-126 5:05pm Thyroid Stimulating March 29, 2017 31.0 mlU/L High 0.47-4.68 TSH cascade is Hormone (TSH) 5:05pm not recomme nded for patients i n which pituitar y or hypothalmic disorders are suspected. Free Thyroxine March 29, 2017 0.59 ng/dL Low 0.78-2.19 5:05pm Hepatitis B Surface February 22, [address] Performed by: Antigen 8:43[place] [address] Director Life Sales: Kayode Lester MD , Ph D Hepatitis [...] wit h HBV. Test Performed by: [place] [address] Director Life Sales: Kayode Lester MD , Ph D Hepatitis C Antibody February 22, 2017 Negative T est Performed by: 8:43[place] [address] Director Life Sales: Kayode Lester MD , Ph D Advance Directives Advance Directive Response Recorded Date/Time Do we have a copy on file here at [facility]? No A pri 2016 10:20am Does patient have an Advanced Directive? No October 17, 2011 10:30am Pt has a Living Will? No October 17, 2011 10: 30am Pt has a Power of Parachute Marker? No October 16 10:30am Chief Complaint and Reason for Visit Encounter Admit Date Chief Complaint Reason for Visit Departed Clinical March 29, 2017 4:45pm Lab Hospital Discharge Instructions No known hospital discharge instructions. Hospital Discharge Medications Medication Dose Units Route Sig Qty Days Order Status Instru ctions Date Levothyroxine 225 mcg ORAL DAILY November Amoxicillin-Pot 1 TAB ORAL TWICE A 28 16 November Discont inued Clavulanate 2016 Encounters Encounter Facility Location Admit/Visit Discharge/Departure Atte nding Date Date Provider Departed [facility] 29March 29, [facility] 4[facility] 4:[facility] 11:35am 11:36[facility] February 22, 2017 February 22, 2017 9[facility] February 21, 2017 March 27, [facility] 4[facility] February 20, 2017 February 20, 2017 10:43p m [facility] Department 9:57pm Departed [facility] January 08, 2017 January 08, 2017 7:45pm [facility] November 22November 22, 2016 9:02pm Severiano Gallegos [facility] 2016 9:01pm [facility]arted [facility] November 22November 22, 2016 8:58pm Severiano Gallegos [facility] November 22November 22, 2016 2:58p m Severiano Gallegos [facility] 2016 2:57pm Departed [facility] Emergency November 14November 14, 2016 1:03pm Emergency Medical Center Department 2016 9:32am Functional Status No known functional status. Immunizations No known immunizations. Payers Payer Policy Type Covered Covered Relationship Subscriber Subs criber Id Name Alliance Party Alliance Party Id PADMINI BARILLAS [id number] Self/Same as ERAN ARTIS [id number] CROSS OUT CHANDRA 7 Patient OF STATE [facility] PADMINI DICKSON [id number] Child-Son/Daught RANDOLPH Humphrey [id number] CROSS (DO CHANDRA er NOT USE) SELF PAY Personal Plan of Care No Known Plan of Care Information Social History Query Response Start Date Stop Date Smoking Status Never smoker Vital Signs Vital Reading Result Reference Range Collection Date/ Time Height n/a Weight 82.1 kg February 20, 2017 9: 59pm Temperature 98.4 F 97.6 F-99.6 F February 20, 2017 9: 59pm Pulse 86 BPM 60-100 February 20, 2017 10 :42pm Respiration 18 RPM 12-February 20, 2017 10 :42pm Pulse Oximetry 98 % 95-100 February 20, 2017 10 :42pm Blood Pressure Systolic 133 100-140 February 20, 2017 10:42pm Blood Pressure Diastolic 92 50-85 February 10:42pm Body Mass Index n/a
--- OUTSIDE RECORDS SUMMARY | 2022-08-24 14:38 | XMS_ITS | Continuity of Care Document ---
:1990 Author Organization [facility] Address [address] [place] [address] Care Team Providers Name Role Phone PCP, Not Given Primary Care Physician Unavailable Andreia Hare Attending Physician Unavailable Allergies, Adverse Reactions, Alerts [...] ORAL TWICE A 28 November Discontinued Clavulanate 2016 [Augmentin] Problem List No problem information available. Procedures Procedure Date Status MRI RT Lower Ext Jt w/o Cont January 08, 2017 completed Knee 1 or 2 vw RT November 22, [address] Head w/o Contrast November 14, 2016 completed Reason for Referral Reason for Referral Date Referral Provider Office Contact Locat ion was Provided Relevant Diagnostic Tests and/or Laboratory Data Laboratory Results Test Date/Time Result Interp. Ref. Range Result Comment White Blood Count November 22, 2016 7.49 1000/mm3 4.8-10.8 2:30pm Red Blood Count November 22, 2016 4.75 M/mm3 4.20-5.40 2:30pm Hemoglobin November 22, 2016 14.9 g/dL 12.0-16.0 2:30pm Hematocrit November 22, 2016 43.9 % 37-47 2:30pm Mean Corpuscular November 22, 2016 92.4 fL 81.0-99.0 Volume 2:30pm Mean Corpuscular November 22, 2016 31.4 pg High 27-31 Hemoglobin 2:30pm Mean Corpuscular November 22, 2016 33.9 g/dL 33-37 Hemoglobin Concent 2:30pm Red Cell November 22, 2016 12.2 % 11.5-14.5 Distribution Width 2:30pm Platelet Count November 22, 2016 354 1000/mm3 140-440 2:30pm Mean Platelet Volume November 22, 2016 9.9 fL 7.4-10.4 2:30pm Sodium Level November 22, 2016 140 mmol/L 137-145 2:30pm Potassium Level November 22, 2016 4.2 mmol/L 3.6-5.0 2:30pm Chloride Level November 22, 2016 102 mmol/L 98-107 2:30pm Carbon Dioxide Level November 22, 2016 26 mmol/L 22-30 2:30pm Anion Gap November 22, 2016 12 7-16 2:30pm Blood Urea Nitrogen November 22, 2016 10 mg/dL 7-17 2:30pm Creatinine November 22, 2016 0.7 mg/dL 0.52-1.04 2:30pm Glomerular November 22, 2016 > 60 mL/min Filtration Rate Calc 2:30pm Glucose Level November 22, 2016 79 mg/dL 70-100 2:30pm Calcium Level November 22, 2016 9.8 mg/dL 8.4-10.2 2:30pm Cholesterol Level November 22, 2016 166 mg/dL 59-199 2:30pm HDL Cholesterol November 22, 2016 56 mg/dL 40-60 The [facility] Cholesterol Education Program (NCEP) has set the following guidelines (reference values) for cholesterol, HDL: 2:30pm Low HDL: <40 m g/dL Normal: 40-60 mg/dL Desirable: >60 mg/dL LDL Cholesterol November 22, 2016 89.6 mg/dL 0-129 2:30pm VLDL Cholesterol November 22, 2016 20.4 mg/dL 0-32 2:30pm Cholesterol/HDL November 22, 2016 2.96 0-3.9 Ratio 2:30pm Triglycerides Level November 22, 2016 102 mg/dL 0-149 2:30pm Thyroid Stimulating November 22, 2016 10.7 mlU/L High 0.47-4.68 T SH cascade is Hormone (TSH) 2:30pm not recomme nded for patients i n which pituitar y or hypothalmic disorders are suspected. Free Thyroxine November 22, 2016 0.64 ng/dL Low 0.78-2.19 2:30pm Advance Directives Advance Directive Response Recorded Date/Time Do we have a copy on file here at [facility]? No A pril 2016 10:20am Does patient have an Advanced Directive? No October 17, 2011 10:30am Pt has a Living Will? No October 17, 2011 10: 30am Pt has a Power of Microsoft Access Developer? No October 16 10:30am Hospital Discharge Instructions No known hospital discharge instructions. Hospital Discharge Medications Medication Dose Units Route Sig Qty Days Order Status Instru ctions Date Levothyroxine 225 mcg ORAL DAILY November Amoxicillin-Pot 1 TAB ORAL TWICE A November Discont inued Clavulanate 2016 Encounters Encounter Facility Location Admit/Visit Discharge/Departure Atte nding Date Date Provider Departed [facility] February 22, 2017 February 22, 2017 9: [facility] Andreia Registered [facility] Landry Departed [facility] Emergency February 20, 2017 February 20, 2017 10:43p m [facility] Department 9:57pm Departed [facility] January 08, 2017 January 08, 2017 7:45pm [facility] Dep[facility]ed [facility] November 22November 22, 2016 9:02pm Severiano Gallegos [facility] 2016 9:01pm Departed [facility] November 22November 22, 2016 8:58pm Severiano Gallegos [facility] 2016 8:57pm Departed [facility] November 22November 22, 2016 2:58p m Severiano Gallegos [facility] 2016 2:57pm Departed [facility] Emergency November 14November 14, 2016 1:03pm [facility] Department 2016 9:32am Functional Status No known functional status. Immunizations No known immunizations. Payers Payer Policy Type Covered Covered Relationship Subscriber Subs criber Id Name Alliance Party Alliance Party Id PADMINI BARILLAS [id number] Self/Same as ERAN ARTIS [id number] CROSS OUT CHANDRA 7 Patient OF STATE [facility] PADMINI DICKSON [id number] Child-Son/Daught RANDOLPH SCHWARZ E [id number] CROSS (DO CHANDRA er NOT USE) SELF [...] 20, 2017 10 :42pm Respiration 18 RPM 12-24 February 20, 2017 10 :42pm Pulse Oximetry 98 % 95-100 February 20, 2017 10 :42pm Blood Pressure Systolic 133 100-140 February 20, 2017 10:42pm Blood Pressure Diastolic 92 50-85 February 10:42pm Body Mass Index n/a
--- OUTSIDE RECORDS SUMMARY | 2022-08-24 14:38 | XMS_ITS | Continuity of Care Document ---
:[address] [facility] Address [address] [place] [address] Care Team Providers Name Role Phone PCP, Not Given Primary Care Physician Unavailable Landry Groves Attending Physician Allergies, Adverse Reactions, Alerts Allergen Type Severity [...] TWICE A 28 14 November Discontinued Clavulanate 2016 [Augmentin] Problem List [...] November 22, 2016 56 mg/dL 40-60 The [facility] Cholesterol Education Program (NCEP) has set the [...] 22, 2016 0.64 ng/dL Low 0.78-2.19 2:30pm Hepatitis B Surface February 22, [address] Performed by: Antigen 8:43[place] [address] Dairy Department Manager: Kayode Lester MD , Ph D Hepatitis [...] wit h HBV. Test Performed by: [place] [address] Dairy Department Manager: Kayode Lester MD , Ph D Hepatitis C Antibody February 22, 2017 Negative T est Performed by: 8:43pm [place] [address] Dairy Department Manager: Kayode Lester MD , Ph D Advance Directives Advance Directive Response Recorded Date/Time Do we have a copy on file here at [facility]? No A [facility] 2016 10:20am Does patient have an Advanced Directive? No October 17, 2011 10:30am Pt has a Living Will? No October 17, 2011 10: 30am Pt has a Power of Bar Tacker? No October 16 10:30am Chief Complaint and Reason for Visit Encounter Admit Date Chief Complaint Reason for Visit Discharged Recurring February 21, 2017 4:45pm RIGHT KNEE Hospital Discharge Instructions No known hospital discharge instructions. Hospital Discharge Medications Medication Dose Units Route Sig Qty Days Order Status Instru ctions Date Levothyroxine 225 mcg ORAL DAILY November Amoxicillin-Pot 1 TAB ORAL TWICE A November Discont inued Clavulanate 2016 Encounters Encounter Facility Location Admit/Visit Discharge/Departure Atte nding Date Date Provider Departed [facility] February 22, 2017 February 22, 2017 9[facility]ia Dis[facility] February 21, 2017 March 27, 2017 Katrin nichols [facility] Building 4:45pm 4:21pm Landry Departed [facility] Emergency February 20, 2017 February 20, 2017 10:43p Emergency Medical Center Department 9:57pm Departed [facility] January 08, 2017 January 08, 2017 7:45pm Jose dugan [facility] 7:44pm [facility] Departed [facility] November 22November 22, 2016 9:02pm Severiano Gallegos [facility] 2016 9:01pm Departed [facility] November 22November 22, 2016 8:58pm Severiano Gallegos [facility] 2016 8:57pm Departed [facility] Walk In St November 22November 22, 2016 2:58p m [facility]legos [facility] 2:57pm Dep[facility]ed [facility] Emergency November 14November 14, 2016 1:03pm Emergency [facility] Center Department 2016 9:32am Functional Status No known functional status. Immunizations No known immunizations. Payers Payer Policy Type Covered Covered Relationship Subscriber Subs criber Id Name Republican Republican Id PADMINI BARILLAS [id number] Self/Same as ERAN ARTIS [id number] CROSS OUT CHANDRA 7 Patient OF [facility] PADMINI DICKSON [id number] Child-Son/Daught RANDOLPH SCHWARZ E [id number] CROSS (DO CHANDRA er NOT USE) SELF [...]
--- OUTSIDE RECORDS SUMMARY | 2022-08-24 14:38 | XMS_ITS | Continuity of Care Document ---
:1990 Author Organization [facility] Address [address] [place] [address] Care Team Providers Name Role Phone PCP, of Choice Primary Care Physician Unavailable Allergies, Adverse Reactions, Alerts No known allergies. Medications Active Medications Medication Dose Units Route Sig Qty Days Start Date St atus Levothyroxine [Synthroid] 225 MCG ORAL DAILY November 14, 2016 Active Mirena May 26, 2018 Active Discontinued Medications Medication Dose Units Route Sig Qty Days Start Date Discontin ued Status Date Amoxicillin-Po 1 TAB ORAL TWICE A 28 November 14February 20, 2017 Discontinued t Clavulanate DAY 2016 [Augmentin] valacyclovir November 26Apremb r 6, Discontinued 2017 2017 Hydroxyzine 50 MG ORAL FOUR AprilApril 17, Discontinued Hcl TIMES 2017 DAILY PRN For anxiety Problem List Active Problems Medical Problem Onset Date Status ADHD (attention deficit hyperactivity disorder), 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, 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 Sleep apnea June 25, 2012 Diarrhea of presumed infectious origin February 14, 2015 A ctive Vaginitis and vulvovaginitis September 22, 2014 Generalized abdominal pain March 28, 2017 Anxiety state June 12, 2010 Dysthymia December 04, 2012 Diarrhea March 28, 2017 Dysuria February 14, 2015 Hypothyroidism March 14, 2011 Noncompliance with treatment March 28, 2017 Herpes simplex virus (HSV) infection December 13, 2014 Bacterial enteritis October 24, 2017 Pharyngitis due to Streptococcus species August 26, 2017 Viral upper respiratory tract infection July 20, 2016 Exposure to sexually transmitted disease (STD) February 22, 2017 Knee pain December 18, 2016 Gastroesophageal reflux disease October 31, 2011 Benign neoplasm of skin March 14, 2011 Depressive disorder November 19, 2012 Constipation November 19, 2012 Inactive/Resolved Problems Medical Problem Onset Date Status Concussion Inactive Anxiety Inactive Contusion of toe of right foot Inactive Procedures Procedure Date Status Foot 3 vw Min RT November 26, 2017 completed MRI RT Lower Ext Jt w/o Cont January 08, 2017 completed Knee 1 or 2 vw RT November 22, [address] Head w/o Contrast November 14, 2016 completed EMERGENCY DEPT VISIT November 03, 2013 active COMPLETE CBC W/AUTO DIFF WBC November 03, 2013 active ASSAY OF UREA NITROGEN November 03, 2013 active ASSAY THYROID STIM HORMONE November 03, 2013 active ASSAY OF LIPASE November 03, 2013 active ASSAY GLUCOSE BLOOD QUANT November 03, 2013 active ASSAY OF CREATININE November 03, 2013 active ASSAY OF ETHANOL November 03, 2013 active URINE TEST November 03, 2013 active URINALYSIS AUTO W/O SCOPE November 03, 2013 active HEPATIC FUNCTION PANEL November 03, 2013 active ELECTROLYTE PANEL November 03, 2013 active ROUTINE VENIPUNCTURE November 03, 2013 active EMERGENCY DEPT VISIT March 06, 2012 active EMERGENCY DEPT VISIT March 06, 2012 active DRESS/DEBRID P-THICK BURN S March 06, 2012 active X-RAY EXAM OF ABDOMEN October 17, 2011 active Abdomen 1 vw AP (KUB) October 17, 2011 completed Campylobacter Culture completed Urine Culture completed Salmonella/Shigella Culture completed Relevant Diagnostic Tests and/or Laboratory Data Laboratory Results Test Date/Time Result Interp. Ref. Range Result Comment White Blood Count 11.64 1000/mm3 High 4.8-10.8 Red Blood Count 4.34 M/mm3 4.20-5.40 Hemoglobin 12.3 g/dL 12.0-16.0 Hematocrit 36.9 % Low 37-47 Mean Corpuscular Volume 85.0 fL 81.0-99.0 Mean Corpuscular 28.3 pg 27-31 Hemoglobin Mean Corpuscular 33.3 g/dL 33-37 Hemoglobin Concent Red Cell Distribution 13.6 % 11.5-14.5 Width Platelet Count 360 1000/mm3 140-440 Mean Platelet Volume 9.0 fL 7.4-10.4 Neutrophils (%) (Auto) 67.8 % 40.0-72.0 Lymphocytes (%) (Auto) 24.5 % 17-45 Monocytes (%) (Auto) 6.8 % 3-11 Eosinophils (%) (Auto) 0.3 % 0-3 Basophils (%) (Auto) 0.6 % 0-1 Neutrophils # (Auto) 7.89 1000/mm3 High 1.4-6.5 Lymphocytes # (Auto) 2.85 1000/mm3 1.2-3.4 Monocytes # (Auto) 0.79 1000/mm3 0.0-0.8 Eosinophils # (Auto) 0.04 1000/mm3 0.0-0.7 Basophils # (Auto) 0.07 1000/mm3 0.0-0.1 Differential Method Automated Stool Occult Blood Negative Urine Color yellow Urine Clarity clear Urine pH 7.0 Urine Specific Burr 1.010 Urine Protein Negative mg/dL Urine Glucose (UA) Normal mg/dL Urine Ketones Negative Urine Nitrate Negative Urine Bilirubin Negative mg/dL Urine Urobilinogen Normal mg/dL Urine Leukocyte Negative WBC/uL Esterase Urine Blood Negative TRINY/uL Urine RBC 0-2 /hpf Urine WBC 0-2 /hpf Urine Squamous 1+ /hpf Epithelial Cells Urine Bacteria None seen /hpf Sodium Level 141 mmol/L 137-145 Potassium Level 3.5 mmol/L Low 3.6-5.0 Chloride Level 104 mmol/L 98-107 Carbon Dioxide Level 19 mmol/L Low 22-30 Anion Gap 18 High 7-16 Blood Urea Nitrogen 7 mg/dL 7-17 Creatinine 0.68 mg/dL 0.52-1.04 Glomerular Filtration > 60 mL/min Rate Calc Glucose Level 83 mg/dL 70-100 Calcium Level 9.8 mg/dL 8.4-10.2 Calcium Adjusted for 9.7 mg/dL 8.4-10.2 Albumin Total Bilirubin 0.5 mg/dL 0.2-1.3 Direct Bilirubin 0 mg/dL 0-0.3 Aspartate Amino Transf 13 U/L Low 14-36 (AST/SGOT) Alanine 23 U/L 9-52 Aminotransferase (ALT/SGPT) Total Protein 7.3 g/dL 6.3-8.2 Albumin 4.4 g/dL 3.5-5.0 Cholesterol Level 166 mg/dL 59-199 HDL Cholesterol 56 mg/dL 40-60 The Nat nal Cholesterol Education Program (NCEP) has set the following guidelines (reference values) for cholesterol, HDL: Low HDL: <40 m g/dL Normal: 40-60 mg/dL Desirable: >60 mg/dL LDL Cholesterol 89.6 mg/dL 0-129 VLDL Cholesterol 20.4 mg/dL 0-32 Cholesterol/HDL Ratio 2.96 0-3.9 Triglycerides Level 102 mg/dL 0-149 Alkaline Phosphatase 53 U/L 38-126 Lipase 64 U/L 23-300 Thyroid Stimulating 14.0 mlU/L High 0.47-4.68 Hormone (TSH) Thyroid Stimulating 7.46 mlU/L High 0.47-4.68 TSH c ascade is not Hormone (TSH) recommended for patients in ich pituitary or hypothalmic disorders are suspected. Free Thyroxine 0.96 ng/dL 0.78-2.19 Helicobacter pylori Negative Resul t indicates the absence of current Helicobacter pylori Breath Test infection. Test Performed by: [facility] [address] , [place] [address] Hepatitis B Surface Negative Test Performed by: [place] [address] Medical Physics Researcher: Kayode Lester MD , Ph D Hepatitis B Surface Positive Refe rence Range: Antibody Unvaccinated: Negative Vaccinated: P ositive Patient is pr esumed to be immune to infection wit h HBV. Hepatitis B Surface 12.8 mIU/mL Ref erence Range: Antibody, Quant Positive : >=10.0 mIU/mL Negative: <10 .0 mIU/mL Patient is pr esumed to be immune to infection wit h HBV. Test Performed by: [place] [address] Medical Physics Researcher: Kayode Lester MD , Ph D Hepatitis C Antibody Negative Test Performed by: [place] [address] Medical Physics Researcher: Kayode Lseter MD , Ph D Monoscreen Negative Ethyl Alcohol Level 74 mg/dL High 0-10 Percent Ethyl Alcohol 0.074 Stool C. difficile See comments Nega tive for C.difficile toxin by PCR. Presumptive negative for 027, Toxin (PCR) NAP1, BI str ain. Test Performed by: [place] [address] Medical Physics Researcher: Yared Barriga M.D. Microbiology Results Procedure Source Result Collection Date/Time Result Date/Time Advance Directives Advance Directive Response Recorded Date/Time Do we have a copy [place] [facility] No A pri 2016 10:20am Does patient have an Advanced Directive? No October 17, 2011 10:30am Pt has a Living Will? No October 17, 2011 10: 30am Pt has a Power of Supervisor Color Paste Mixing? No October 16 10:30am Chief Complaint and Reason for Visit Encounter Admit Date Chief Complaint Reason for Visit Departed Emergency July 29, 2019 6:14am ABDOMINAL PAIN Hospital Discharge Instructions Additional Discharge Instructions At this point it maryse ears that your symptoms are most likely secondary to bogdan rrhea from a GI bug. This is likely to be a self- limited illness. Mainstay of your treatment i s to stay well-hydrated. Use half-stre ngth Gatorade 1 quarts every 1-2 hours to maintain hydration. Use ibuprofen 400 mg 3 times a d ay as needed for pain. Follow-up with your primary care doctor for recheck if not improved in 3 to 5 da ys. Return to the ER for new or worsening symptom s. Instruction/Education Provided Diarrhea in Adolescents and Adults Hospital Discharge Medications Medication Dose Units Route Sig Qty Days Order Date Status In structions Levothyroxine 225 MCG ORAL DAILY November 142016 Amoxicillin-Pot 1 TAB ORAL TWICE A 28 November 14, Disc ontinued Clavulanate 2016 Mirena May valacyclovir November 26, Disconti nued 2017 Hydroxyzine Hcl 50 MG ORAL FOUR April Disco ntinued 2017 DAILY PRN For anxiety Encounters Encounter Facility Location Admit/Visit Discharge/Departure Atte nding Date Date Provider Departed [facility] Emergency July 29, July 29, 2019 [facility] Department 2018 6:14am 8:01am Departed [facility] June 19June 19, 2018 Irving shirley [facility] 2017 12:00am Con version ovider Office Visit Departed [facility] May 26, May 26, 2018 [facility] 2017 12:15pm 2:03pm Gene Departed [facility] April 30, April 30, 2018 Khoa [facility] 2017 12:00am Con version ovider Office Visit Departed [facility] April 17April 17, 2018 Khoa [facility] 2017 12:00am Con version ovider Office Visit Departed [facility] April 16, April 16, 2018 Khoa [facility] 2018 12:00am Con version ovider Office Visit Departed [facility] April 10, April 10, 2018 [facility] 2017 10:02am 11:26am Albans Departed [facility] March 06March 06, 2018 Khoa [facility] [employer] 2017 12:00am Convers ion ovider Office Visit Departed [facility] March 05March 05, 2018 Khoa [facility] 2017 12:00am Con version ovider Office Visit Departed [facility] January 02, 2018 January 02, 2018 12:18p irving Agarwal [facility] 12:17pm Ragini Departed [facility] January 02, 2018 January 02, 2018 Stefano [facility] 12:00am Allis on ovider Office Visit Departed [facility] November 26, November 26, 2017 3:58pm [facility] 2017 2:58pm Albans Departed [facility] October 24, October 24, 2017 Jose [facility] 2017 12:00am Roberto ovider [place] Office Visit Departed [facility] August 26, August 26, 2017 Gualberto العلي [facility] 2017 12:00am Hillary kurtis ovider Office Visit Departed [facility] July 31, July 31, 2017 Irving shirley [facility] [employer] 2016 12:00am Convers ion ovider Office Visit Departed [facility] Emergency July 04, July 04, 2017 Emergency Medical Center Department 2016 8:16pm 9:10pm Departed [facility] July 01, July 01, 2017 Irving shirley [facility] Primary Care 2016 12:00am Conve rsion ovider Office Visit Departed [facility] June 20, June 20, 2017 Arnav rizzo [facility] 2016 12:00am Roberto ovider [place] Office Visit Departed [facility] March 29March 29, 2017 Danelle t, [facility] 2016 4:45pm 4:46pm Dahiana Departed [facility] March 29March 29, 2017 Kar salvador, [facility] Primary Care 2016 11:35am 11:36am Dahiana Departed [facility] March 28March 28, 2017 Kar ett, [facility] 2016 12:00am Genie a ovider Office Visit Departed [facility] February 27, 2017 February 27, 2017 Ayse bess [facility] [employer] 12:00am Conversio n ovider Office Visit Departed [facility] February 26, 2017 February 26, 2017 Mede nt, [facility] 12:00am Conve rsion ovider ab Office Visit Departed [facility] February 22, 2017 February 22, 2017 9: 13pm AnanyaMary [facility] [place] 9:12pm Andreia Departed [facility] February 22, 2017 February 22, 2017 Jennifer nesbitt [facility] 12:00am Andreia ovider [place] Office Visit Discharged [facility] February 21, 2017 March 27, 2017 [facility] 4:21pm Landry Departed [facility] February 21, 2017 February 21, 2017 Medmaira bess, [facility] Primary Care 12:00am Convers ion ovider Office Visit Departed [facility] Emergency February 20, 2017 February 20, 2017 10:43p m [facility] Department 9:57pm Departed [facility] January 29, 2017 January 29, 2017 Mede nt, [facility] 12:00am Conve rsion ovider ab Office Visit Departed [facility] January 16, 2017 January 16, 2017 Mede nt, [facility] 12:00am Conve rsion ovider ab Office Visit Departed [facility] January 10, 2017 January 10, 2017 Medzenia , [facility] 12:00am Conve rsion ovider ab Office Visit Departed [facility] January 08, 2017 January 08, 2017 7:45pm [facility] Departed [facility] December 18, 2016 December 18, 2016 Khoa , [facility] 12:00am Conve rsion ovider ab Office Visit Departed [facility] December 05, 2016 December 05, 2016 Geraldo [facility] 12:00am Onelia ovider Office Visit Departed [facility] December 04, 2016 December 04, 2016 Mari [facility] 12:00am Eli ovider Office Visit Departed [facility] November 30November 30, 2016 Sisi berry [facility] 2016 12:00am Jess y ovider Office Visit Departed [facility] November 27November 27, 2016 Quincy [facility] Urgent Judy 2016 12:00am Car ly ovider Office Visit Departed [facility] November 22November 22, 2016 9:02pm Severiano Gallegos Referred [facility] Primary Care 2016 9:01pm Departed [facility] November 22November 22, 2016 8:58pm Severiano Gallegos [facility] Primary Care 2016 8:57pm Departed [facility] DI Walk In St November 22November 22, 2016 2:58p m Severiano Gallegos [facility] [place] 2016 2:57pm Departed [facility] November 22November 22, 2016 Delmar genao [facility] 2016 12:00am Onelia ovider Office Visit Departed [facility] Emergency November 14November 14, 2016 1:03pm Emergency [facility] Center Department 2016 9:32am Departed [facility] August 23, August 23, 2016 Mateo kuhn [facility] 2016 12:00am Onelia ovider Office Visit Departed [facility] July 20, July 20, 2016 Jose kendall [facility] 2015 12:00am Chr istina ovider Office Visit Departed [facility] February 29, 2016 February 29, 2016 Jenise paz [facility] Primary Care 12:00am Onelia ovider Office Visit Departed [facility] February 24, 2016 February 24, 2016 Mede nt, [facility] Primary [facility] 12:00am Convers ion ovider Office Visit Departed [facility] February 23, 2016 February 23, 2016 Mede nt, [facility] Primary Care 12:00am Convers ion ovider Office Visit Departed [facility] January 25, 2016 January 25, 2016 Jenise paz [facility] 12:00am Onelia ovider Office Visit Departed [facility] November 29November 30, 2015 Delmar genao [facility] 2015 12:00am Onelia ovider Office Visit Departed [facility] October 17October 18, 2015 Khoa [facility] 2015 12:00am Conve rsion ovider Office Visit Departed [facility] October 11, 2015 October 11, 2015 Mede nt, [facility] Primary Care 12:00am Convers ion ovider Office Visit Registered [facility] April 01, [facility] 2014 12:40pm Onelia Registered [facility] February 16, 2015 Geraldo [facility] Primary Care 8:05pm Onelia Departed [facility] February 16, 2015 February 16, 2015 Jenise paz [facility] 12:00am Onelia ovider Office Visit Registered [facility] February 14, 2015 Russell [facility] 7:59pm Vikas Departed [facility] February 14, 2015 February 14, 2015 Ayse bess [facility] 12:00am Conve rsion ovider Office Visit Departed [facility] February 07, 2015 February 07, 2015 Delmar genao [facility] 12:00am Onelia ovider Office Visit Departed [facility] December 13, 2014 December 13, 2014 Delmar genao [facility] 12:00am Onelia ovider Office Visit Departed [facility] November 29, November 29, 2014 Khoa [facility] 2014 12:00am Conve rsion ovider Office Visit Departed [facility] November 15November 15, 2014 Khoa [facility] 2014 12:00am Conve rsion ovider Office Visit Registered [facility] November 02, Geraldo [facility] Primary Care 2014 8:53pm Onelia Departed [facility] November 02, November 02, 2014 Delmar genao [facility] 2014 12:00am Onelia ovider Office Visit Departed [facility] September 22, September 22, 2014 Irving shirley [facility] [employer] 2014 12:00am Convers ion ovider Office Visit Departed [facility] September 15, September 15, 2014 Irving shirley [facility] 2014 12:00am Conve rsion ovider Office Visit Departed [facility] September 02, September 02, 2014 Anthony españa [facility] 2014 12:00am Tenisha e ovider Office Visit Registered [facility] July 22, Geraldo [facility] Primary Care 2013 9:09pm Onelia Departed [facility] July 22, July 22, 2014 Magda moran [facility] 2013 12:00am Onelia ovider Office Visit Departed [facility] January 13, 2014 January 13, 2014 ToChepe [facility] 12:00am ovider Office Visit Departed [facility] November 18, November 18, 2013 Delmar genao [facility] 2013 12:00am Onelia ovider Office Visit Departed [facility] Emergency November 03, 2013 November 04, 2013 1:02am Emergency [facility] Center Department 9:27pm Departed [facility] October 09, 2013 October 09, 2013 Mede shahriar, [facility] 12:00am Convers ion ovider Office Visit Departed [facility] September 28, September 28, 2013 Irving shirley [facility] 2013 12:00am Con version ovider Office Visit Departed [facility] September 17, September 17, 2013 M fern [facility] 2013 12:00am Conve rsion ovider Office Visit Departed [facility] August 21, August 21, 2013 Med ent, [facility] 2013 12:00am Conve rsion ovider Office Visit Departed [facility] July 24, July 24, 2013 M fern [facility] 2012 12:00am Conve rsion ovider Office Visit Departed [facility] July 01, July 01, 2013 Magda moran [facility] 2012 12:00am Onelia ovider Office Visit Departed [facility] June 22, June 22, 2013 S dean [facility] 2012 12:00am Mol ly ovider Office Visit Departed [facility] May 21, May 21, 2013 Mateo kuhn [facility] 2012 12:00am Onelia ovider Office Visit Departed [facility] May 20, May 20, 2013 Mateo kuhn [facility] 2012 12:00am Onelia ovider Office Visit Departed [facility] April 22, April 22, 2013 Geraldo [facility] 2012 12:00am Onelia ovider Office Visit Departed [facility] February 17, 2013 February 17, 2013 Jenise paz [facility] Primary [facility] 12:00am Onelia ovider Office Visit Registered [facility] November 19, [facility] Primary Care 2012 7:50pm Marcia Departed [facility] Emergency March 06, March 07, 2012 Emergency [facility] Department 2011 11:09pm 12:18am Registered [facility] 16, [facility] 10:30am [facility] Departed [facility] September 16, September 16, 2009 Irving shirley [facility] [employer] 2009 12:00am Convers ion ovider Office Visit Departed [facility] [employer] July 15, July 15, 2009 Dahiana mcleod [facility] 2008 12:00am [facility] March 03, 2009 March 04, 2009 [facility] Department 12:00am Departed [facility] Referred Lab December 30, 2008 December 30, 2008 T[facility] December 16, 2008 December 16, 2008 Sri roldan [facility] 12:00am Maite Departed [facility] June 29June 29, 2008 Irving shirley, [facility] [employer] 2007 12:00am Convers ion ovider Office Visit Departed [facility] Emergency June 05June 05, 2008 [facility] Department 2007 12:00am Departed [facility] Emergency March 07March 07, 2008 [facility] Department 2007 12:00am Departed [facility] Emergency February 23, 2008 February 23, 2008 [facility] Department 12:00am Departed [facility] [employer] February 26, 2006 February 26, 2006 Liza cruz, [facility] 12[facility]00am [facility] January 20, 2006 January 20, 2006 [facility] Department 12:00am Departed [facility] Outpatient August 02August 02, 2005 Hao haynes [facility] Con[facility] 2004 12:00am [facility] September 06September 06, 2003 Cesar mistry [facility] 2003 12:00am Yamile Departed [facility] Emergency April 29, April 29, 2003 Emergency [facility] Center Department 2002 12:00am Departed [facility] Referred Lab June 24June 24, 2002 Annabel ladd [facility] 2001 12:00am [facility] April 11, April 11, 2002 Emergency [facility] Department 2001 12:00am Departed [facility] [employer] November 06, 2001 November 06, 2001 Christine rao [facility] 12:00am [facility] Outpatient November 03, 2001 November 03, 2001 Isiah albert [facility] Conversion 12:00am [facility] April 30April 30, 2001 Annabel ladd [facility] Conversion 2000 12:00am [facility] August 15August 15, 2000 Jesica schmid [facility] Conversion 2000 12:00am Yasmany Departed [facility] Emergency January 14, 1999 January 14, 1999 Emergency [facility] Center Department 12:00am Departed [facility] CONV Misc Comp August 05August 05, 1899 Med ent, Physician/Pr Addiction Mgmt Pain location 1899 12:00am Con version ovider Office Visit Functional Status Query Response Date Recorded Comment Comprehension Ability Understands Concepts February 20, 2017 10:39pm Query Response Date Recorded Comment Living Situation Home July 29, 2019 7:50am Immunizations Immunization Name Date Given Type DTP vaccine (H) May 16, 1990 Historical DTP vaccine (H) December 13, 2011 Historical DT Vaccine PED November 28, 1990 Historical DT Vaccine PED October 22, 1991 Historical DT Vaccine PED December 10, 1995 Historical Hepatitis B Adult Vaccine April 02, 1997 Historical Hepatitis B Adult Vaccine May 04, 1997 Historical Hepatitis B Adult Vaccine October 13, 1997 Historical Hib Hboc Conjugate 4 Dose Schedule (H) November 28, 1990 H istorical Hib Hboc Conjugate 4 Dose Schedule (H) January 22, 1991 H istorical Influenza, Pandemic Formulation, H1N1 (H) September 16, 2009 Historical Influenza Split Virus 3YR Older September 15, 2014 Historic al Meningococcal Conjugate MCV4 (Menactra) January 30, 2008 Historical Measles,Mumps,Rubella Vaccine December 10, 1995 Historical Poliovirus Vaccine Oral (H) 1989 Historical Poliovirus Vaccine Oral (H) May 16, 1990 Historical Poliovirus Vaccine Oral (H) October 22, 1991 Historical Poliovirus Vaccine Oral (H) December 10, 1995 Historical Tdap October 24, 2006 Historical Tdap August 05, 2011 Historical Payers Payer Name Policy Type Covered Covered Relationship Subscriber Sub scriber Libertarian Libertarian Id Id BLUE CROSS Commercial ERAN [id number] Self/Same as ERAN CHANDRA [id number] OUT OF STATE CHANDRA 36 Patient FINANCIAL Personal ERAN 50% Self/Same as ERAN CHANDRA 50% ASSISTANCE CHANDRA Patient FEP BLUE Commercial RANDOLPH [id number] Child-Son/Daugh RANDOLPH CHANDRA [id number] CROSS (DO NOT CHANDRA ter USE) SELF PAY Personal Plan of Care Instructions Diarrhea in Adolescents and Adults Social History Query Response Date Recorded Comment Alcohol Use Yes July 29, 2019 occasionally 7:23am Smoking Status Never smoker July 29, 2019 7:23am alcohol intake frequency holidays/special July 29, 2019 occasions only 7:23am Query Response Start Date Stop Date Smoking Status Never smoker Vital Signs Vital Reading Result Reference Range Collection Date/ Time Height 5 ft 2 in July 29 9 6:16am Weight 97.522 kg July 29 9 6:16am Temperature 97.7 F 97.6 F-99.6 F July 29 9 6:16am Pulse 92 BPM 60-100 July 29 9 6:16am Respiration 16 RPM -July 29 9 6:16am Pulse Oximetry 98 % 95-100 July 29 9 6:16am Blood Pressure Systolic 140 100-140 July 29, 2019 6:16am Blood Pressure Diastolic 94 50-85 [facility] 2018 6:16am Body Mass Index 35.7 April 16 9:49am
--- OUTSIDE RECORDS SUMMARY | 2022-08-24 14:38 | XMS_ITS | Continuity of Care Document ---
:1990 Author Organization [facility] Address [address] [place] [address] Care Team Providers Name Role Phone Onelia Chow Primary Care Physician Allergies, Adverse Reactions, Alerts Allergen Type Severity Reaction Last Updated Verified Status No Known Allergies Allergy November 14, 2016 N Active Medications Active Medications Medication Dose Units Route Sig Qty Days Start Date St atus Levothyroxine [Synthroid] 225 mcg ORAL DAILY November 14, 2016 Active Amoxicillin-Pot 1 TAB ORAL TWICE A DAY 28 14 Apri 2016 Active Clavulanate [Augmentin] Problem List No problem information available. Procedures Procedure Date Status CT Head w/o Contrast November 14, 2016 completed Reason for Referral Reason for Referral Date Referral Provider Office Contact Locat ion was Provided Relevant Diagnostic Tests and/or Laboratory Data No known relevant diagnostic tests, laboratory data, and/or discharge summary. Advance Directives Advance Directive Response Recorded Date/Time Do we have a copy on file here at [facility]? No A [facility] 2016 10:20am Does patient have an Advanced Directive? No October 17, 2011 10:30am Pt has a Living Will? No October 17, 2011 10: 30am Pt has a Power of Pharmacy Coordinator? No October 16 10:30am Chief Complaint and Reason for Visit Encounter Admit Date Chief Complaint Reason for Visit Departed Emergency November 14, 2016 9:32am [facility] Discharge Instructions No known hospital discharge instructions. Hospital Discharge Medications Medication Dose Units Route Sig Qty Days Order Date Status In structions Levothyroxine 225 mcg ORAL DAILY November 142016 Amoxicillin-Pot 1 TAB ORAL TWICE A 28 14 November 14, Acti ve Clavulanate 2016 Encounters Encounter Facility Location Admit/Visit Discharge/Departure Atte nding Date Date Provider Departed [facility] Emergency November 14November 14, 2016 1:03pm Emergency [facility] Center Department 2016 9:32am Functional Status No known functional status. Immunizations No known immunizations. Payers Payer Policy Type Covered Covered Relationship Subscriber Subs criber Id Name Alliance Party Alliance Party Id FEP PADMINI Commercial RANDOLPH [id number] Child-Son/Daught RANDOLPH SCHWARZ E [id number] CROSS (DO CHANDRA er NOT USE) SELF PAY Personal Plan of Care No Known Plan of Care Information Social History Query Response Start Date Stop Date Smoking Status Never Smoker Vital Signs Vital Reading Result Reference Range Collection Date/ Time Height n/a Weight 77.111 kg November 14, 2016 9 :46am Temperature n/a Pulse 107 BPM 60-100 November 14, 2016 9 :46am Respiration 20 RPM -November 14, 2016 9 :46am Pulse Oximetry 99 % 95-100 November 14, 2016 9 :46am Blood Pressure Systolic 109 100-140 November 9:46am Blood Pressure Diastolic 68 50-85 November 032016 9:46am Body Mass Index n/a
--- OUTSIDE RECORDS SUMMARY | 2022-08-24 14:38 | XMS_ITS | Continuity of Care Document ---
:1990 Author Organization [facility] Address [address] [place] [address] Care Team Providers Name Role Phone Given, Not Primary Care Physician Unavailable Severiano Gallegos Attending Physician Unavailable Allergies, Adverse Reactions, Alerts Allergen Type Severity Reaction Last Updated Verified Status No Known Allergies Allergy November 14, 2016 N Active Medications Active Medications Medication Dose Units Route Sig Qty Days Start Date St atus Levothyroxine [Synthroid] 225 mcg ORAL DAILY November 14, 2016 Active Amoxicillin-Pot 1 TAB ORAL TWICE A DAY 28 14 Apri l 2016 Active Clavulanate [Augmentin] Problem List No problem information available. Procedures Procedure Date Status Knee 1 or 2 vw RT November [...] 22, 2016 56 mg/dL 40-[address] [facility] Cholesterol Education Program (NCEP) has set [...] have a copy on file here at [facility]? No A pril 2016 10:20am Does patient have an Advanced Directive? No October 17, 2011 10:30am Pt has a Living Will? No October 17, 2011 10: 30am Pt has a Power of Ophthalmic Technician? No October 16 10:30am Hospital Discharge Instructions No known hospital discharge instructions. Hospital Discharge Medications Medication Dose Units Route Sig Qty Days Order Date Status In structions Levothyroxine 225 mcg ORAL DAILY November 142016 Amoxicillin-Pot 1 TAB ORAL TWICE A 28 November 14 Acti ve Clavulanate 2016 Encounters Encounter Facility Location Admit/Visit Discharge/Departure Atte nding Date Date Provider Departed [facility] November 22November 22, 2016 9:02pm Severiano Gallegos [facility] 2016 9:01pm Departed [facility] November 22November 22, 2016 8:58pm Severiano Gallegos [facility] 2016 8:57pm Departed [facility] In [facility] November 22November 22, 2016 2:58p m Severiano Gallegos [facility] 2:57[facility] Dep[facility] Emergency November 14November 14, 2016 1:03pm Emergency [facility] Department 2016 9:32am Functional Status No known functional status. Immunizations No known immunizations. Payers Payer Policy Type Covered Covered Relationship Subscriber Subs criber Id Name Constitution Party Constitution Party Id PADMINI BARILLAS [id number] Self/Same as ERAN ARTIS [id number] CROSS OUT CHANDRA 7 Patient OF [facility] PADMINI DICKSON [id number] Child-Son/Daught RANDOLPH Humphrey [id number] CROSS (DO CHANDRA er NOT USE) SELF [...]
--- OUTSIDE RECORDS SUMMARY | 2022-08-24 14:38 | XMS_ITS | Continuity of Care Document ---
:1990 Author Organization Address [address] [place] [address] Care Team Providers Name Role Phone PCP, of Choice Primary Care Physician Unavailable Allergies, Adverse Reactions, Alerts No known allergies. Medications Active Medications Medication Dose Units Route Sig Qty Days Start Date St atus Levothyroxine [Synthroid] 225 MCG ORAL DAILY November 14, 2016 Active valacyclovir November 26 2 018 Active Discontinued Medications Medication Dose [...] 5:05pm Platelet Count March 29, 359 1000/mm3 [phone] 5:05pm Mean Platelet Volume March 29, 9.8 [...] March 29, 7.0 2017 5:05pm Urine Specific Cerrillos March 29, 1.010 2017 5:05pm Urine Protein [...] 5:05pm Sodium Level March 29, 139 mmol/L [phone] 5:05pm Potassium Level March 29, 4.2 mmol/L [...] Test 2017 5:05pm infection. Test Performed by: [facility] , [place] [address] Hepatitis B Surface February 22, [address] Performed by: Antigen 8:43pm [place] [address] Medical Physiologist: Kayode Lester MD , Ph D Hepatitis [...] wit h HBV. Test Performed by: [place] [address] Medical Physiologist: Kayode Lester MD , Ph D Hepatitis C Antibody February 22, 2017 Negative T est Performed by: 8:43pm [place] [address] Medical Physiologist: Kayode Lester MD , Ph D Microbiology Results Procedure Source Result Collection Result Date/Lico e Date/Time Campylobacter Culture Stool NO CAMPYLOBACTER March 29, 2017 SPECIES ISOLATED. 9:45am Salmonella/Shigella Stool NO SALMONELLA OR March 29, 2017 Culture SHIGELLA SPECIES 9:45am ISOLATED. Advance Directives Advance Directive Response Recorded Date/Time Do we have a copy on file here at [facility]? No A [facility] 2016 10:20am Does patient have an Advanced Directive? No October 17, 2011 10:30am Pt has a Living Will? No October 17, 2011 10: 30am Pt has a Power of Youth Specialist? No October 16 10:30am Hospital Discharge Instructions [...] Discharge/Departure Atte nding Date Date Provider Departed [facility] November 26, November 26, 2017 3:58pm [facility] 2017 2[facility], July 04, 2017 [facility] Department 2016 8:16pm 9:10pm Departed [facility] March 29March 29, 2017 [facility] 4:45[facility] 4:46[facility]March [facility], 2017 [facility] 11:35am 11:36am [facility] 22[facility] 2017 February 22, [facility] Dis[facility] February 21, 2017 March 27, 2017 [facility] 4[facility] 20, 2017 February 20, 2017 10:43p m [facility] 08, 2017 January 08, 2017 7:[facility]pm [facility] Functional Status No known functional status. Immunizations No known immunizations. Payers Payer Name Policy Type Covered Covered Relationship Subscriber Sub scriber Democrat Democrat Id Id PADMINI RUTH [employer] ERAN [id number] Self/Same as ERAN ARTIS [id number] OUT OF STATE CHANDRA 37 Patient FINANCIAL Personal ASSISTANCE [facility] PADMINI DICKSON [id number] Child-Son/Daugh RANDOLPH ARTIS [id number] FARAZ (DO NOT CHANDRA ter USE) SELF [...]
--- OUTSIDE RECORDS SUMMARY | 2022-08-24 14:38 | XMS_ITS | Continuity of Care Document ---
:1990 Author Organization [facility] Address [address] [place] [address] Care Team Providers Name Role Phone Onelia [...] November 22, 2016 56 mg/dL 40-60 [facility] Cholesterol Education Program (NCEP) has set the [...] have a copy on file here at [facility]? No A [facility] 2016 10:20am Does patient have an Advanced Directive? No October 17, 2011 10:30am Pt has a Living Will? No October 17, 2011 10: 30am Pt has a Power of Assistant Clinical Nurse Manager? No October 16 10:30am Chief Complaint and Reason for Visit Encounter Admit Date Chief Complaint Reason for Visit Departed Emergency February 20, 2017 9:57pm UNKNOWN MEDICAL Hospital Discharge Instructions Additional Discharge Instructions Return to the ED imm ediately for any concerning symptoms. No Instructions/Education Provided Hospital Discharge Medications Medication Dose Units Route Sig Qty Days Order Status Instru ctions Date Levothyroxine 225 mcg ORAL DAILY November Amoxicillin-Pot 1 TAB ORAL TWICE A November Discont inued Clavulanate 2016 Encounters Encounter Facility Location Admit/Visit Discharge/Departure Atte nding Date Date Provider Departed [facility] Emergency February 20, 2017 February 20, 2017 10:43p m [facility] Department 9:57pm Registered [facility]inder [facility] Landry [facility] January 08, 2017 January 08, 2017 7:45pm [facility] Departed [facility] November 22November 22, 2016 9:02pm Severiano Gallegos [facility] 2016 9:01pm Departed [facility] November 22November 22, 2016 8:58pm Severiano Gallegos [facility] November 22November 22, 2016 2:58p m Severiano Gallegos [facility] 2016 2:57pm Departed [facility] Emergency November 14November 14, 2016 1:03pm Emergency [facility] Department 2016 9:32am Functional Status No known functional status. Immunizations No known immunizations. Payers Payer Policy Type Covered Covered Relationship Subscriber Subs criber Id Name Republican Republican Id PADMINI BARILLAS [id number] Self/Same as ERAN ARTIS [id number] CROSS OUT CHANDRA 7 Patient OF STATE [facility] PADMINI DICKSON [id number] Child-Son/Daught RANDOLPH SCHWARZ E [id number] CROSS (DO CHANDRA er NOT USE) SELF [...]
--- OUTSIDE RECORDS SUMMARY | 2022-08-24 14:38 | XMS_ITS | Continuity of Care Document ---
:1990 Author Organization [facility] Address [address] [place] [address] Care Team Providers Name Role Phone PCP, [...] Date Amoxicillin-Po 1 TAB ORAL TWICE A November 14, February 20, 2017 Discontinued t Clavulanate DAY 2016 [...] sexually transmitted disease (STD) February 22, 2017 [id number] Active Knee pain December 18, 2016 Gastroesophageal reflux disease October 31, 2011 Benign neoplasm of skin March 14, 2011 Depressive disorder November 19, 2012 Constipation November 19, 2012 Inactive/Resolved Problems Medical Problem Onset Date Status Concussion Inactive Anxiety Inactive Contusion of toe of right foot Inactive Procedures No known history of procedures. Relevant Diagnostic Tests and/or Laboratory Data No known relevant diagnostic tests, laboratory data, and/or discharge summary. Hospital Discharge Instructions No known hospital discharge instructions. Hospital Discharge Medications Medication Dose Units Route Sig Qty Days Order Date Status In structions Levothyroxine 225 MCG ORAL DAILY November 142016 Amoxicillin-Pot 1 TAB ORAL TWICE A 28 November 14 ontinued Clavulanate 2016 Mirena May valacyclovir November 26 Disconti nu2017 Hydroxyzine Hcl 50 MG ORAL FOUR April Disco ntinued 2017 DAILY PRN For anxiety Encounters Encounter Facility Location Admit/Visit Discharge/Departure Atte nding Date Date Provider Departed [facility] June 25, June 25, [facility] 2019 1:06pm 2:29pm Albans Departed [facility] Emergency July 29July 29, 2019 Emergency [facility] Department 2018 6:14am 8:01am Functional Status Query Response Date Recorded Comment Living Situation Alone June 25, 2020 2:25pm Immunizations Immunization Name Date Given Type DTP [...] 2006 Historical Tdap August 05, 2011 Historical Plan of Care No Known Plan of Care Information Social History Query Response Date Recorded Comment Alcohol Use Yes June 25, 2020 occasionally 2:25pm Smoking Status Never smoker June 25, 2020 2:25pm alcohol intake frequency holidays/special June 25, 2020 occasions only 2:25pm substance use type does not use June 25, 2020 2:25pm Query Response Start Date Stop Date Smoking Status Never smoker Vital Signs Vital Reading Result Reference Range Collection Date/ Time Height 5 ft 2 in June 25 0 1:20pm Weight 97.522 kg June 25 0 1:20pm Temperature 98.1 F 97.6 F-99.6 F June 25 0 1:20pm Pulse 96 BPM 60-100 June 25 0 1:20pm Respiration 16 RPM 12-24 June 25 0 1:20pm Pulse Oximetry 98 % 95-100 June 25 0 1:20pm Blood Pressure Systolic 122 100-140 June 25, 2020 1:20pm Blood Pressure Diastolic 76 50-85 Novembe 2019 1:20pm Body Mass Index 39.3 June 25 0 1:20pm
--- OUTSIDE RECORDS SUMMARY | 2022-08-24 14:38 | XMS_ITS | Continuity of Care Document ---
:1990 Author Organization [facility] Address [address] [place] [address] Care Team Providers Name Role Phone Onelia Chow Primary Care Physician Allergies, Adverse Reactions, Alerts No known allergies. Medications Active Medications Medication Dose Units Route Sig Qty Days Start Date St atus Levothyroxine [Synthroid] 225 MCG ORAL DAILY November 14, 2016 Active Discontinued Medications Medication Dose Units Route Sig Qty Days Start Discontinued Status Date Date Amoxicillin-Pot 1 TAB ORAL TWICE A 28 14 November Discontinued Clavulanate DAY 2016 [Augmentin] Problem List No problem information available. Procedures Procedure Date Status Campylobacter Culture March 29, 2017 completed Salmonella/Shigella Culture March 29, 2017 completed MRI RT Lower Ext Jt w/o Cont January 08, 2017 completed Knee 1 or 2 vw RT November 22, [address] Head w/o Contrast November 14, 2016 completed Relevant Diagnostic Tests and/or Laboratory Data [...] pg 27-31 Hemoglobin 2016 5:05pm Mean Corpuscular Shedd 25, 32.7 g/dL Low 33-37 Hemoglobin Concent 2017 5:05pm Red Cell Distribution March 29, 12.0 % 11.5-14.5 Width 2017 5:05pm Platelet Count March 29, 359 1000/mm3 060-065 8119 5:05pm Mean Platelet Volume March 29, 9.8 fL 7.4-10.4 2017 5:05pm Neutrophils (%) (Auto) March 29, 69.1 [...] # (Auto) March 29, 0.09 1000/mm3 0.0-0.1 2017 5:05pm Differential Method March 29, Automated 2016 5:05pm Urine Color March 29, yellow 2016 5:05pm Urine Clarity March 29, clear 2016 5:05pm Urine pH March 29, 7.0 2017 5:05pm Urine Specific [place] March 29, 1.010 2017 5:05pm Urine Protein [...] 5:05pm Sodium Level March 29, 139 mmol/L [phone] 5:05pm Potassium Level March 29, 4.2 mmol/L 3.6-5.0 2016 5:05pm Chloride Level March 29, 101 mmol/L 98-107 2016 5:05pm Carbon Dioxide Level March 29, 25 mmol/L -2016 5:05pm Anion Gap March 29, 13 7-16 2016 5:05pm Blood Urea Nitrogen March 29, 14 mg/dL 7-2016 5:05pm Creatinine March 29, 0.7 mg/dL 0.52-1.04 2016 5:05pm Glomerular Filtration March 29, > 60 mL/min Rate Calc 2016 5:05pm Glucose Level March 29, 90 mg/dL 70-100 2016 5:05pm Calcium Level March 29, 9.9 mg/dL 8.4-10.2 2016 5:05pm Calcium Adjusted for March 29, 9.7 mg/dL 8.4-10.2 Albumin 2016 5:05pm Total Bilirubin March 29, 0.6 mg/dL 0.2-1.3 2016 5:05pm Aspartate Amino Transf March 29, 17 U/L 14-36 (AST/SGOT) 2017 5:05pm Alanine March 29, 28 U/L 9-52 Aminotransferase 2016 5:05pm (ALT/SGPT) Total Protein March 29, 7.6 g/dL 6.3-8.2 2016 5:05pm Albumin March 29, 4.6 g/dL 3.5-5.0 2016 5:05pm Cholesterol Level November 22, 2016 166 mg/dL 59-199 2:30pm HDL Cholesterol November 22, 2016 56 mg/dL 40-60 [facility] Cholesterol Education Program (NCEP) has set [...] mg/dL 0-149 2:30pm Alkaline Phosphatase March 29, 58 U/L 38-126 2016 5:05pm Thyroid Stimulating March 29, 31.0 mlU/L High 0.47-4.68 TSH c ascade is Hormone (TSH) 2016 5:05pm not recomm ended for patients i n which pituitar y or hypothalmic disorders are suspected. Free Thyroxine March 29, 0.59 ng/dL Low 0.78-2.19 2016 5:05pm Helicobacter pylori March 29, Negative Resul t indicates the absence of current Helicobacter pylori Breath Test 2016 5:05pm infection. Test Performed by: [facility] [address], [place] [address] Hepatitis B Surface February 22, [address] Performed by: Antigen 8:43[place] [address] Bone Grinder: Kayode Lester MD , Ph D Hepatitis [...] wit h HBV. Test Performed by: [place] [address] Bone Grinder: Kayode Lester MD , Ph D Hepatitis C Antibody February 22, 2017 Negative T est Performed by: 8:43pm [place] [address] Bone Grinder: Kayode Lester MD , Ph D Microbiology Results Procedure Source Result Collection Result Date/Lico e Date/Time Campylobacter Culture Stool NO CAMPYLOBACTER March 29, 2017 SPECIES ISOLATED. 9:45am Salmonella/Shigella Stool NO SALMONELLA OR March 29, 2017 Culture SHIGELLA SPECIES 9:45am ISOLATED. Advance Directives Advance Directive Response Recorded Date/Time Do we have a copy on file here at [facility]? No A pril 2016 10:20am Does patient have an Advanced Directive? No October 17, 2011 10:30am Pt has a Living Will? No October 17, 2011 10: 30am Pt has a Power of Diamond Setter Apprentice? No October 16 10:30am Chief Complaint and Reason for Visit Encounter Admit Date Chief Complaint Reason for Visit Departed Emergency July 04, 2017 8:16pm TAMPON STUCK IN [facility] Hospital Discharge Instructions Additional Discharge Instructions It is very important to change her tampons every 6 hours at minimum. Read the l iterature inside the tampon box. It was good that she had the tampon removed today. Return to the ER immediately for fever, shaking chills, abdom inal pain, severe headache, rash, feeling ill or like you have the flu. Instruction/Education Provided Tampons Sanitary Pads C h Teen Hospital Discharge Medications Medication Dose Units Route Sig Qty Days Order Status Instru ctions Date Levothyroxine 225 MCG ORAL DAILY November Amoxicillin-Pot 1 TAB ORAL TWICE A November Discont inued Clavulanate 2016 Encounters Encounter Facility Location Admit/Visit Discharge/Departure Atte nding Date Date Provider Departed [facility] Emergency July 04July 04, 2017 [facility] 2017 Kar salvador [facility] Primary Care 2016 11:35am 11:36am [facility] February 22, 2017 February 22, 2017 [facility] Dis[facility] February 21, 2017 March 27, 2017 Katrin nichols [facility] 4:45pm 4:21pm [facility] 20, 2017 February 20, 2017 10:43p m [facility] Department 9:57pm Departed [facility] DI January 08, 2017 January 08, 2017 7:45pm Jose dugan [facility] 7:44pm [facility] November 22November 22, 2016 9:02pm Severiano Gallegos [facility] Primary Care 2016 9:01pm [facility] November 22November 22, 2016 8:58pm Severiano Gallegos [facility] Primary Care 2016 8:57pm Departed [facility] DI Walk In November 22November 22, 2016 2:58p m Severiano Gallegos [facility] [place] 2016 2:57pm Departed [facility] Emergency November 14November 14, 2016 1:03pm [facility] Department 2016 9:32am Functional Status No known functional status. Immunizations No known immunizations. Payers Payer Name Policy Type Covered Covered Relationship Subscriber Sub scriber Democrat Democrat Id Id PADMINI BARILLAS [id number] Self/Same as ERAN ARTIS [id number] OUT OF STATE CHANDRA 37 Patient FINANCIAL Personal ASSISTANCE FEP PADMINI DICKSON [id number] Child-Son/Daugh RANDOLPH ARTIS [id number] CROSS (DO NOT CHANDRA ter USE) SELF PAY Personal Plan of Care Instructions Tampons Sanitary Pads Ch Teen Social History Query Response Start Date Stop Date Smoking Status Never smoker Vital Signs Vital Reading Result Reference Range Collection Date/ Time Height n/a Weight 84.368 kg July 04 8:40pm Temperature 97.9 F 97.6 F-99.6 F July 04 7 8:40pm Pulse 91 BPM 60-100 July 04 8:40pm Respiration 18 RPM 12-July 04 8:40pm Pulse Oximetry 100 % 95-100 July 04 7 8:40pm Blood Pressure Systolic 127 100-140 July 04, 2017 9:08pm Blood Pressure Diastolic 93 50-85 Novem2016 9:08pm Body Mass Index n/a
--- OUTSIDE RECORDS SUMMARY | 2022-08-24 14:38 | XMS_ITS | Continuity of Care Document ---
:1990 Author Organization [facility] Address [address] [place] [address] Care Team Providers Name Role Phone Landry Escobar Primary Care Physician Allergies, Adverse Reactions, Alerts No known allergies. Medications Active Medications Medication Dose Units Route Sig Qty Days Start Date St atus Levothyroxine 225 MCG ORAL DAILY November 14, 2016 Active [Synthroid] Hydroxyzine Hcl 50 MG ORAL FOUR TIMES 28 7 mber 6, Active DAILY PRN For 2018 anxiety Discontinued Medications Medication Dose Units Route Sig Qty Days Start Discontinued Status Date Date Amoxicillin-Pot 1 TAB ORAL TWICE A 28 14 November Discontinued Clavulanate DAY 2016 [Augmentin] valacyclovir NovemberApril 10 , Discontinued 2017 2018 Problem List Active Problems Medical Problem Onset Date Status Anxiety Active Inactive/Resolved Problems Medical Problem Onset Date Status Contusion of toe of right foot Inactive Procedures Procedure Date Status Foot 3 vw Min RT November 26, 2017 completed Relevant Diagnostic Tests and/or Laboratory [...] due to specimen too old to process. Sodium Level January 02, 2018 139 mmol/L [...] 02, 2018 57 mg/dL 40-60 [facility] Ch[facility] (NCEP) has set the [...] 02, 2018 0.77 ng/dL Low 0.78-2.19 12:17pm Advance Directives Advance Directive Response Recorded Date/Time Do we have a copy on file here at [facility]? No A pri 2016 10:20am Does patient have an Advanced Directive? No October 17, 2011 10:30am Pt has a Living Will? No October 17, 2011 10: 30am Pt has a Power of Biofuels Plant Construction Worker? No October 16 12 10:30am Hospital Discharge Instructions Additional Discharge Instructions Take the hydroxyine up to 4 times daily as needed for anxiety. F/u with your PCP to discuss senior care medication if needed, and to check your thyroid function. Look into counseling, I thin k this would be really beneficial at figuring out the cause of your anxiety and coming up with some coping mechanisms that work for you. No Instructions/Education Provided Hospital Discharge Medications Medication Dose Units Route Sig Qty Days Order Date Status In structions Levothyroxine 225 MCG ORAL DAILY November 14, 2016 Amoxicillin-Pot 1 TAB ORAL TWICE A 28 14 Lindsey 12, Disc ontinued Clavulanate 2016 valacyclovir November 26 Disconti nued 2017 Hydroxyzine Hcl 50 MG ORAL FOUR April Activ e 2017 DAILY PRN For anxiety Encounters Encounter Facility Location Admit/Visit Discharge/Departure Atte nding Date Date Provider Dep[facility]ed [facility] [place] April 10, April 10, [facility] 2017 10:02am 11:26am Gene Dep[facility] [place] [place] January 02, 2018 January 02, 2018 12[facility] Ragini [facility] [place] November 26November 26, 2017 3:58pm [facility] 2017 2:58pm Albfaisal Departed [facility] Emergency July 04July 04, 2017 [facility] Department 2016 8:16pm 9:10pm Functional Status No known functional status. Immunizations No known immunizations. Payers Payer Name Policy Type Covered Covered Relationship Subscriber Sub scriber Republican Republican Id Id BLUE [employer] Commercial ERAN [id number] Self/Same as ERAN CHANDRA [id number] OUT OF STATE CHANDRA 37 Patient FINANCIAL Personal ERAN 50% Self/Same as ERAN CHANDRA 50% ASSISTANCE CHANDRA Patient FEP BLUE Commercial RANDOLPH [id number] Child-Son/Daugh RANDOLPH CHANDRA [id number] CROSS (DO NOT CHANDRA ter USE) SELF PAY Personal Plan of Care No Known Plan of Care Information Social History Query Response Start Date Stop Date Smoking Status Never smoker Vital Signs Vital Reading Result Reference Range Collection Date/ Time Height n/a Weight n/a Temperature 98.3 F 97.6 F-99.6 F November 26, 2017 3 :06pm Pulse 74 BPM 60-100 April 10 10:59am Respiration 16 RPM 07-28April 10 10:59am Pulse Oximetry 98 % 95-100 April 10 10:59am Blood Pressure Systolic 126 100-140 [facility] 2017 10:59am Blood Pressure Diastolic 84 50-85 [facility] 2017 10:59am Body Mass Index n/a
--- OUTSIDE RECORDS SUMMARY | 2022-08-24 14:38 | XMS_ITS | Continuity of Care Document ---
:1990 Author Organization [facility] Address [address] [place] [address] Care Team Providers Name Role Phone PCP, [...] March 29, 7.0 2017 5:05pm Urine Specific [place] March 29, 1.010 2017 5:05pm Urine Protein [...] Test 2016 5:05pm infection. Test Performed by: [facility] [address] [facility] [place] [address] Hepatitis B Surface February 22, [address] Performed by: Antigen 8:43[place] [address] Safety Glass Installer: Kayode Lester MD , Ph D Hepatitis [...] wit h HBV. Test Performed by: [place] [address] Safety Glass Installer: Kayode Lester MD , Ph D Hepatitis C Antibody February 22, 2017 Negative T est Performed by: 8:43pm THE [address] [place] [address] Safety Glass Installer: Kayode Lester MD , Ph D Microbiology Results Procedure Source Result Collection Result Date/Lico e Date/Time Campylobacter Culture Stool NO CAMPYLOBACTER March 29, 2017 SPECIES ISOLATED. 9:45am Salmonella/Shigella Stool NO SALMONELLA OR March 29, 2017 Culture SHIGELLA SPECIES 9:45am ISOLATED. Advance Directives Advance Directive Response Recorded Date/Time Do we have a copy on file here at [facility]? No A [facility] 2016 10:20am Does patient have an Advanced Directive? No October 17, 2011 10:30am Pt has a Living Will? No October 17, 2011 10: 30am Pt has a Power of Paperboard Machine Operator? No October 16 10:30am Hospital Discharge Instructions No known hospital discharge instructions. Hospital Discharge Medications Medication Dose Units Route Sig Qty Days Order Status Instru ctions Date Levothyroxine 225 MCG ORAL DAILY November Amoxicillin-Pot 1 TAB ORAL TWICE A November Discont inued Clavulanate 2016 valacyclovir November Encounters Encounter Facility Location Admit/Visit Discharge/Departure Atte nding Date Date Provider Departed [facility] January 02, 2018 January 02, 2018 [facility]ini Dep[facility] November 26November 26, 2017 3:58pm [facility] 2017 2:58pm [facility] July 04July 04, 2017 [facility] 2016 8:16pm 9:[facility]March [facility], [facility] 4:45pm 4:46pm [facility]March 29, 2017 [facility] 2016 11:35am 11:36am [facility] February 22, 2017 February 22, 2017 9: 13pm [facility] 9:12[facility] Andreia Discharged [facility] February 21, 2017 March 27, [facility] 4[facility] February 20, 2017 February 20, 2017 10:43p m [facility] Department 9:57pm Departed [facility] DI January 08, 2017 January 08, 2017 7:45pm [facility] Functional Status No known functional status. Immunizations No known immunizations. Payers Payer Name Policy Type Covered Covered Relationship Subscriber Sub scriber Democrat Democrat Id Id PADMINI BARILLAS [id number] Self/Same as ERAN ARTIS [id number] OUT OF STATE CHANDRA 37 Patient FINANCIAL Personal ASSISTANCE FEP PADMINI DICKSON [id number] Child-Son/Daugh RANDOLPH ARTIS [id number] CROSS (DO NOT CHANDRA ter USE) SELF [...]
--- OUTSIDE RECORDS SUMMARY | 2022-08-24 14:38 | XMS_ITS | Continuity of Care Document ---
:1990 Author Organization [facility] Address [address] [place] [address] Care Team Providers Name Role Phone Onelia [...] 5:05pm Platelet Count March 29, 359 1000/mm3 [phone] 5:05pm Mean Platelet Volume March 29, 9.8 [...] March 29, 7.0 2017 5:05pm Urine Specific [place] March 29, 1.010 2017 5:05pm Urine Protein [...] 5:05pm Sodium Level March 29, 139 mmol/L [phone] 5:05pm Potassium Level March 29, 4.2 mmol/L [...] November 22, 2016 56 mg/dL 40-60 [facility] Cholesterol Education Program (NCEP) has set [...] Test 2016 5:05pm infection. Test Performed by: [facility] [address] , [place] [address] Hepatitis B Surface February 22, [address] Performed by: Antigen 8:43[place] [address] Cableway Operator: Kayode Lester MD , Ph D Hepatitis [...] wit h HBV. Test Performed by: [place] [address] Cableway Operator: Kayode Lester MD , Ph D Hepatitis C Antibody February 22, 2017 Negative T est Performed by: 8:43pm [place] [address] Cableway Operator: Kayode Lester MD , Ph D Microbiology Results Procedure Source Result Collection Result Date/Lico e Date/Time Campylobacter Culture Stool NO CAMPYLOBACTER March 29, 2017 SPECIES ISOLATED. 9:45am Salmonella/Shigella Stool NO SALMONELLA OR March 29, 2017 Culture SHIGELLA SPECIES 9:45am ISOLATED. Advance Directives Advance Directive Response Recorded Date/Time Do we have a copy on file here at [facility]? No A pril 2016 10:20am Does patient have an Advanced Directive? No October 17, 2011 10:30am Pt has a Living Will? No October 17, 2011 10: 30am Pt has a Power of Semi Conductor Assembler? No October 16 10:30am Chief Complaint and [...] Discharge/Departure Atte nding Date Date Provider Departed [facility] March 29March 29, 2017 Danelle major [facility] 2016 4:45pm 4:46pm Dahiana [facility] March 29March 29, 2017 Kar salvador [facility] Primary Care 2016 11:35am 11:36am Dahiana Departed [facility] February 22, 2017 February 22, 2017 [facility] Andreia Discharged [facility] February 21, 2017 March 27, [facility] 4:[facility] 20, 2017 February 20, 2017 10:43p m [facility] 08, 2017 January 08, 2017 7:45pm [facility] November 22November 22, 2016 9:02pm Severiano Gallegos [facility] Primary Care 2016 9:01pm Departed [facility] November 22November 22, 2016 8:58pm Severiano Gallegos [facility] Primary Care 2016 8:57pm Departed [facility] Walk In November 22November 22, 2016 2:58p m Severiano Gallegos [facility] 2016 2:57pm Departed [facility] Emergency November 14November 14, 2016 1:03pm [facility] Department 2016 9:32am Functional Status No known functional status. Immunizations No known immunizations. Payers Payer Name Policy Type Covered Covered Relationship Subscriber Sub scriber Republican Republican Id Id PADMINI BARILLAS [id number] Self/Same as ERAN ARTIS [id number] OUT OF STATE CHANDRA 37 Patient FINANCIAL Personal ASSISTANCE FEP PADMINI DICKSON [id number] Child-Son/Daugh RANDOLPH ARTIS [id number] CROSS (DO NOT CHANDRA ter USE) SELF [...]
--- OUTSIDE RECORDS SUMMARY | 2022-08-24 14:38 | XMS_ITS | Continuity of Care Document ---
:1990 Author Organization [facility] Address [address] [place] [address] Care Team Providers Name Role Phone PCP, of Choice Primary Care Physician Unavailable Allergies, Adverse Reactions, Alerts No known allergies. Medications Active Medications Medication Dose Units Route Sig Qty Days Start Date St atus Levothyroxine 225 MCG ORAL DAILY November 14, 2016 Active [Synthroid] Mirena May 26, 2018 Active Metronidazole 1 appful VAGINALLY .qhs 70 5 June 25, 2020 Active Discontinued Medications Medication Dose Units Route Sig Qty Days Start Date Discontin ued Status Date Amoxicillin-Po 1 TAB ORAL TWICE A 28 14 November 14February 20, 2017 Discontinued t Clavulanate DAY 2016 [Augmentin] valacyclovir November 26Apremb r 6, Discontinued 2017 2017 Hydroxyzine 50 MG ORAL FOUR 28 11 AprilApril 17, Discontinued Hcl TIMES 2017 2018 DAILY PRN For anxiety Problem List Active [...] Onset Date Status Concussion Inactive Anxiety Inactive [id number] Inactive Contusion of toe of right foot Inactive Procedures No known history of procedures. Relevant Diagnostic Tests and/or Laboratory Data No known relevant diagnostic tests, laboratory data, and/or discharge summary. Hospital Discharge Instructions No known hospital discharge instructions. Hospital Discharge Medications Medication Dose Units Route Sig Qty Days Order Status Instru ctions Date Levothyroxine 225 MCG ORAL DAILY November 142016 Amoxicillin-Po 1 TAB ORAL TWICE A November 14 Disco ntinu t Clavulanate 2016 ed Mirena May valacyclovir November 26 Disconti 2017 ed Hydroxyzine 50 MG ORAL FOUR April Discontin u Hcl TIMES 2017 ed DAILY PRN For anxiety Metronidazole 1 appful VAGINALLY .qhs 70 June Encounters Encounter Facility Location Admit/Visit Discharge/Departure Atte nding Date Date Provider Departed [facility] June 25, June 25, [facility] 2019 1:06pm 2:29pm [place] [facility] July 29July 29, 2019 [facility] Department 2019 6:14am 8:01am Functional Status Query Response Date [...] August 05, 2011 Historical Plan of Care Instructions COVID 19 General Instructions- decrease the spread of coronavirus ([facility]) Social History Query Response Date Recorded Comment [...]
--- OUTSIDE RECORDS SUMMARY | 2022-08-24 14:38 | XMS_ITS | Continuity of Care Document ---
:1990 Author Organization [facility] Address [address] [place] [address] Care Team Providers Name Role Phone PCP, Not Given Primary Care Physician Unavailable Dahiana Goodrich Attending Physician Unavailable Allergies, Adverse [...] March 29, 2017 7.0 5:05pm Urine Specific [place] March 29, 2017 1.010 5:05pm Urine Protein [...] November 22, 2016 56 mg/dL 40-60 The [facility] Cholesterol Education Program (NCEP) has [...] Te st Performed by: Antigen 8:43[place] [address] Dye Penetrant Testing Technician: Kayode Lester MD , Ph D [...] wit h HBV. Test Performed by: [place] [address] Dye Penetrant Testing Technician: Kayode Lester MD , Ph D Hepatitis C Antibody February 22, 2017 Negative T est Performed by: 8:43pm [place] [address] Dye Penetrant Testing Technician: Kayode Lester MD , Ph D Advance Directives Advance Directive Response Recorded Date/Time Do we have a copy [place] [facility] A pril 2016 10:20am Does patient have an Advanced Directive? No October 17, 2011 10:30am Pt has a Living Will? No October 17, 2011 10: 30am Pt has a Power of Professor Of Archaeology? No October 16 10:30am Hospital Discharge Instructions No known hospital discharge instructions. Hospital Discharge Medications Medication Dose Units Route Sig Qty Days Order Status Instru ctions Date Levothyroxine 225 mcg ORAL DAILY November Amoxicillin-Pot 1 TAB ORAL TWICE A November Discont inued Clavulanate 2016 Encounters Encounter Facility Location Admit/Visit Discharge/Departure Atte nding Date Date Provider Departed [facility] Laboratory March 29March 29, 2017 Danelle major [facility] 2016 4:45pm 4:46pm Dahiana Departed [facility] March 29March 29, 2017 Kar salvador [facility] 2016 11:35am 11:36am Dahiana Departed [facility] February 22, 2017 February 22, 2017 9[facility] Andreia Discharged [facility] February 21, 2017 March 27, [facility] Landry Departed [facility] Emergency February 20, 2017 February 20, 2017 10:43p m [facility] Department 9:57pm Departed [facility] January 08, 2017 January 08, 2017 7:45pm [facility] Departed [facility] November 22November 22, 2016 9:02pm Severiano Gallegos [facility] Primary Care 2016 9:01pm Departed [facility] November 22November 22, 2016 8:58pm Severiano Gallegos [facility] Care 2016 8:57pm Departed [facility] Walk In November 22November 22, 2016 2:58p m Severiano Gallegos [facility] 2016 2:57pm Departed [facility] Emergency November 14November 14, 2016 1:03pm [facility] Department 2016 9:32am Functional Status No known functional status. Immunizations No known immunizations. Payers Payer Policy Type Covered Covered Relationship Subscriber Subs criber Id Name Democrat Democrat Id PADMINI BARILLAS [id number] Self/Same as ERAN ARTIS [id number] CROSS OUT CHANDRA 7 Patient OF STATE [facility] PADMINI DICKSON [id number] Child-Son/Daught RANDOLPH Humphrey [id number] CROSS (DO CHANDRA er NOT USE) SELF [...]
--- OUTSIDE RECORDS SUMMARY | 2022-08-24 14:38 | XMS_ITS | Continuity of Care Document ---
:1990 Author Organization [facility] Address [address] [place] [address] Care Team Providers Name Role Phone Given, [...] November 22, 2016 56 mg/dL 40-60 The [facility] Cholesterol Education Program (NCEP) has [...] have a copy on file here at [facility]? No A pril 2016 10:20am Does patient have an Advanced Directive? No October 17, 2011 10:30am Pt has a Living Will? No October 17, 2011 10: 30am Pt has a Power of Rn X Ray? No October 16 10:30am Hospital Discharge Instructions No known hospital discharge instructions. Hospital Discharge Medications Medication Dose Units Route Sig Qty Days Order Date Status In structions Levothyroxine 225 mcg ORAL DAILY November 142016 Amoxicillin-Pot 1 TAB ORAL TWICE A 28 November 14 Acti ve Clavulanate 2016 Encounters Encounter Facility Location Admit/Visit Discharge/Departure Atte nding Date Date Provider Departed [facility] November 22November 22, 2016 9:02pm Severiano Gallegos [facility] Primary Care 2016 9:01pm Departed [facility] November 22November 22, 2016 8:58pm Severiano Gallegos [facility] Primary Care 2016 8:57pm Departed [facility] DI [facility] In St November 22November 22, 2016 2:58p m [facility] 2016 2:57pm Departed [facility] Emergency November 14November 14, 2016 1:03pm [facility] Department 2016 9:32am Functional Status No known functional status. Immunizations No known immunizations. Payers Payer Policy Type Covered Covered Relationship Subscriber Subs criber Id Name Alliance Party Alliance Party Id PADMINI BARILLAS [id number] Self/Same as ERAN ARTIS [id number] CROSS OUT CHANDRA 7 Patient OF [facility] PADMINI DICKSON [id number] Child-Son/Daught RANDOLPH Humphrey [id number] CROSS (DO CHANDRA er NOT USE) SELF [...]
--- OUTSIDE RECORDS SUMMARY | 2022-08-24 14:38 | XMS_ITS | Continuity of Care Document ---
:1990 Author Organization [facility] Address [address] [place] [address] Care Team Providers Name Role Phone Onelia Chow Primary Care Physician Severiano Gallegos Attending Physician Unavailable Allergies, Adverse [...] November 22, 2016 56 mg/dL 40-60 The [facility] Cholesterol Education Program (NCEP) has set [...] have a copy on file here at [facility]? No A pril 2016 10:20am Does patient have an Advanced Directive? No October 17, 2011 10:30am Pt has a Living Will? No October 17, 2011 10: 30am Pt has a Power of Hvac Installer? No October 16 10:30am Chief Complaint and Reason for Visit Encounter Admit Date Chief Complaint Reason for Visit Departed Clinical November 22, 2016 2:57pm Xray Hospital Discharge Instructions No known hospital discharge instructions. Hospital Discharge Medications Medication Dose Units Route Sig Qty Days Order Date Status In structions Levothyroxine 225 mcg ORAL DAILY November 142016 Amoxicillin-Pot 1 TAB ORAL TWICE A 28 November 14 Acti ve Clavulanate 2016 Encounters Encounter Facility Location Admit/Visit Discharge/Departure Atte nding Date Date Provider Departed [facility] November 22November 22, 2016 9:02pm Severiano Gallegos [facility] Primary Care 2016 9:01pm Departed [facility] November 22November 22, 2016 8:58pm Severiano Gallegos [facility] Primary Care 2016 8:57pm Departed [facility] Walk In November 22November 22, 2016 2:58p m Severiano Gal[facility]os [facility] 2016 2:57pm Departed [facility] Emergency November 14November 14, 2016 1:03pm Emergency Medical Center Department 2016 9:32am Functional Status No known functional status. Immunizations No known immunizations. Payers Payer Policy Type Covered Covered Relationship Subscriber Subs criber Id Name Republican Republican Id PADMINI BARILLAS [id number] Self/Same as ERAN ARTIS [id number] CROSS OUT CHANDRA 7 Patient OF STATE [facility] PADMINI DICKSON [id number] Child-Son/Daught RANDOLPH SCHWARZ E [id number] CROSS (DO CHANDRA er NOT USE) SELF [...]
--- OUTSIDE RECORDS SUMMARY | 2022-08-24 14:38 | XMS_ITS | Continuity of Care Document ---
:1990 Author Organization [facility] Address [address] [place] [address] Care Team Providers Name Role Phone PCP, [...] 2016 56 mg/dL 40-[address] [facility] Cholesterol Education Program (NCEP) has set [...] a copy on file here [place] [facility] No A pril 2016 10:20am Does patient have an Advanced Directive? No October 17, 2011 10:30am Pt has a Living Will? No October 17, 2011 10: 30am Pt has a Power of Crime Scene Evidence Technician? No October 16 10:30am Hospital Discharge Instructions No known hospital discharge instructions. Hospital Discharge Medications Medication Dose Units Route Sig Qty Days Order Status Instru ctions Date Levothyroxine 225 mcg ORAL DAILY November Amoxicillin-Pot 1 TAB ORAL TWICE A November Discont inued Clavulanate 2016 Encounters Encounter Facility Location Admit/Visit Discharge/Departure Atte nding Date Date Provider Departed [facility] February 22, 2017 February 22, 2017 9[facility] Andreia Registered [facility] Landry Departed [facility] Emergency February 20, 2017 February 20, 2017 10:43p m [facility] Department 9:57pm Departed [facility] January 08, 2017 January 08, 2017 7:45pm [facility] November 22November 22, 2016 9:02pm Severiano Gallegos [facility] Primary Care 2016 9:01pm Departed [facility] November 22November 22, 2016 8:58pm Severiano Gallegos [facility] Primary Care 2016 8:57pm Departed [facility] Walk In November 22November 22, 2016 2:58p m Severiano Gallegos [facility] 2016 2:57pm Departed [facility] Emergency November 14November 14, 2016 1:03pm Emergency Medical Center Department 2016 9:32am Functional Status No known functional status. Immunizations No known immunizations. Payers Payer Policy Type Covered Covered Relationship Subscriber Subs criber Id Name Green Party Green Party Id PADMINI BARILLAS [id number] Self/Same as ERAN ARTIS [id number] CROSS OUT CHANDRA 7 Patient OF STATE [facility] PADMINI DICKSON [id number] Child-Son/Daught RANDOLPH SCHWARZ E [id number] CROSS (DO CHANDRA er NOT USE) SELF [...]
--- OUTSIDE RECORDS SUMMARY | 2022-08-24 14:38 | XMS_ITS | Continuity of Care Document ---
:1990 Author Organization [facility] Address [address] [place] [address] Care Team Providers Name Role Phone PCP, [...] March 29, 2017 7.0 5:05pm Urine Specific [place] March 29, 2017 1.010 5:05pm Urine Protein [...] November 22, 2016 56 mg/dL 40-60 The [facility] Cholesterol Education Program (NCEP) has set the [...] Te st Performed by: Antigen 8:43[place] [address] Preschool Assistant Principal: Kayode Lester MD , Ph D Hepatitis [...] wit h HBV. Test Performed by: [place] [address] Preschool Assistant Principal: Kayode Lester MD , Ph D Hepatitis C Antibody February 22, 2017 Negative T est Performed by: 8:43pm [place] [address] Preschool Assistant Principal: Kayode Lester MD , Ph D Advance Directives Advance Directive Response Recorded Date/Time Do we [place] [facility] A pril 2016 10:20am Does patient have an Advanced Directive? No October 17, 2011 10:30am Pt has a Living Will? No October 17, 2011 10: 30am Pt has a Power of Ditching Machine Engineer? No October 16 10:30am Hospital Discharge Instructions No known hospital discharge instructions. Hospital Discharge Medications Medication Dose Units Route Sig Qty Days Order Status Instru ctions Date Levothyroxine 225 mcg ORAL DAILY November Amoxicillin-Pot 1 TAB ORAL TWICE A November Discont inued Clavulanate 2016 Encounters Encounter Facility Location Admit/Visit Discharge/Departure Atte nding Date Date Provider Departed [facility] Laboratory March 29March 29, 2017 Danelle major [facility] 2016 4:45pm 4:46pm Dahiana Departed [facility] March 29March 29, 2017 Kar salvador [facility] Primary Care 2016 11:35am 11:36am Dahiana Departed [facility] February 22, 2017 February 22, 2017 [facility] Andreia Discharged [facility] February 21, 2017 March 27, [address] [facility] 4:[facility] 4:21pm Landry Departed [facility] Emergency February 20, 2017 February 20, 2017 10:43p m [facility] Department 9:57pm Departed [facility] January 08, 2017 January 08, 2017 7:45pm [facility] Dep[facility]ed [facility] November 22November 22, 2016 9:02pm Severiano Gallegos [facility] Primary Care 2016 9:01pm Departed [facility] November 22November 22, 2016 8:58pm Severiano Gallegos [facility] Primary Care 2016 8:57pm Departed [facility] Walk In November 22November 22, 2016 2:58p m Severiano Gallegos [facility] 2016 2:57pm Departed [facility] Emergency November 14November 14, 2016 1:03pm Emergency Medical Center Department 2016 9:32am Functional Status No known functional status. Immunizations No known immunizations. Payers Payer Policy Type Covered Covered Relationship Subscriber Subs criber Id Name Libertarian Libertarian Id PADMINI BARILLAS [id number] Self/Same as ERAN ARTIS [id number] CROSS OUT CHANDRA 7 Patient OF STATE [facility] PADMINI DICKSON [id number] Child-Son/Daught RANDOLPH Humphrey [id number] CROSS (DO CHANDRA er NOT USE) SELF [...]
--- OUTSIDE RECORDS SUMMARY | 2022-08-24 14:38 | XMS_ITS | Continuity of Care Document ---
:1990 Author Organization [facility] Address [address] [place] [address] Care Team Providers Name Role Phone Given, [...] November 22, 2016 56 mg/dL 40-60 The [facility] Cholesterol Education Program (NCEP) has set the [...] have a copy on file here [place] [facility] No A pril 2016 10:20am Does patient have an Advanced Directive? No October 17, 2011 10:30am Pt has a Living Will? No October 17, 2011 10: 30am Pt has a Power of Miniature Set Designer? No October 16 10:30am Hospital Discharge Instructions No known hospital discharge instructions. Hospital Discharge Medications Medication Dose Units Route Sig Qty Days Order Date Status In structions Levothyroxine 225 mcg ORAL DAILY November 142016 Amoxicillin-Pot 1 TAB ORAL TWICE A 28 November 14 Acti ve Clavulanate 2016 Encounters Encounter Facility Location Admit/Visit Discharge/Departure Atte nding Date Date Provider [facility] November 22November 22, 2016 9:02pm Severiano Gallegos [facility] Primary Care 2016 9:01pm [facility] November 22November 22, 2016 8:58pm Severiano Gallegos [facility] Primary Care 2016 8:57pm Departed [facility] In [facility] November 22November 22, 2016 2:58p m [facility] 2016 2:57pm Departed [facility] Emergency November 14November 14, 2016 1:03pm Emergency [facility] Department 2016 9:32am Functional Status No known functional status. Immunizations No known immunizations. Payers Payer Policy Type Covered Covered Relationship Subscriber Subs criber Id Name Alliance Party Alliance Party Id PADMINI BARILLAS [id number] Self/Same as ERAN ARTIS [id number] CROSS OUT CHANDRA 7 Patient OF [facility] PADMINI DICKSON [id number] Child-Son/Daught RANDOLPH Humphrey [id number] CROSS (DO CHANDRA er NOT USE) SELF [...]
--- OUTSIDE RECORDS SUMMARY | 2022-08-24 14:38 | XMS_ITS | Continuity of Care Document ---
:1990 Author Organization [facility] Address [address] [place] [address] Care Team Providers Name Role Phone Onelia [...] pg 27-31 Hemoglobin 2016 5:05pm Mean Corpuscular [place] 25, 32.7 g/dL Low 33-37 Hemoglobin Concent 2017 5:05pm Red Cell Distribution March 29, 12.0 % 11.5-14.5 Width 2017 5:05pm Platelet Count March 29, 359 1000/mm3 [phone] 5:05pm Mean Platelet Volume March 29, 9.8 [...] March 29, 7.0 2017 5:05pm Urine Specific [place] March 29, 1.010 2017 5:05pm Urine Protein [...] 5:05pm Sodium Level March 29, 139 mmol/L [phone] 5:05pm Potassium Level March 29, 4.2 mmol/L [...] November 22, 2016 56 mg/dL 40-60 The [facility] Cholesterol Education Program (NCEP) has set [...] Test 2016 5:05pm infection. Test Performed by: [facility] [address], [place] [address] Hepatitis B Surface February 22, [address] Performed by: Antigen 8:43[place] [address] Counselor Camp: Kayode Lester MD , Ph D Hepatitis [...] wit h HBV. Test Performed by: [place] [address] Counselor Camp: Kayode Lester MD , Ph D Hepatitis C Antibody February 22, 2017 Negative T est Performed by: 8:43pm [place] [address] Counselor Camp: Kayode Lester MD , Ph D Microbiology Results Procedure Source Result Collection Result Date/Lico e Date/Time Campylobacter Culture Stool NO CAMPYLOBACTER March 29, 2017 SPECIES ISOLATED. 9:45am Salmonella/Shigella Stool NO SALMONELLA OR March 29, 2017 Culture SHIGELLA SPECIES 9:45am ISOLATED. Advance Directives Advance Directive Response Recorded Date/Time Do we have a copy on file here at [facility]? No A pril 2016 10:20am Does patient have an Advanced Directive? No October 17, 2011 10:30am Pt has a Living Will? No October 17, 2011 10: 30am Pt has a Power of Warehouse Technician? No October 16 10:30am Chief Complaint and Reason for Visit Encounter Admit Date Chief Complaint Reason for Visit Departed Emergency July 04, 2017 8:16pm [place] STUCK IN [facility] Hospital Discharge Instructions Additional Discharge [...] Discharge/Departure Atte nding Date Date Provider Departed [facility] Emergency July 04July 04, 2017 [facility] Department 2016 8:16[facility] 4:45[facility] 4:46pm [facility]March [facility], 2017 Kar [facility] 2016 11:35am 11:36am [facility] 22, 2017 February 22, 2017 9[facility] Andre[facility] February 21, 2017 March 27, 2017 Katrin nichols [facility] 4:45pm 4:21pm [facility] February 20, 2017 February 20, 2017 10:43p m [facility] Department 9:57pm Departed [facility] DI January 08, 2017 January 08, 2017 7:45pm Jose dugan [facility] 7:44pm [facility] Departed [facility] November 22November 22, 2016 9:02pm Severiano [facility] 2016 9:01pm Departed [facility] November 22November 22, 2016 8:58pm Severiano Gallegos [facility] Primary Care 2016 8:57pm Departed [facility] DI Walk In November 22November 22, 2016 2:58p m Severiano Gal[facility] 2016 2:57pm Departed [facility] Emergency November 14November 14, 2016 1:03pm [facility] Department 2016 9:32am Functional Status No known functional status. Immunizations No known immunizations. Payers Payer Name Policy Type Covered Covered Relationship Subscriber Sub scriber Green Party Green Party Id Id PADMINI BARILLAS [id number] Self/Same as ERAN ARTIS [id number] OUT OF STATE CHANDRA 37 Patient FINANCIAL Personal ASSISTANCE FEP PADMINI DICKSON [id number] Child-Son/Daugh RANDOLPH ARTIS [id number] CROSS (DO NOT CHANDRA ter USE) SELF [...]
--- OUTSIDE RECORDS SUMMARY | 2022-08-24 14:38 | XMS_ITS | Continuity of Care Document ---
:1990 Author Organization [facility] Address [address] [place] [address] Care Team Providers Name Role Phone PCP, [...] Onset Date Status Concussion Inactive Anxiety Inactive [id number] Inactive Contusion of toe of right foot [...] Discharge/Departure Atte nding Date Date Provider Departed [facility] June 25, June 25, [facility] 2019 1:06pm 2:29pm [place] Departed [facility] Emergency July 29July 29, 2019 Emergency [...]
--- OUTSIDE RECORDS SUMMARY | 2022-08-24 14:38 | XMS_ITS | Continuity of Care Document ---
:1990 Author Organization [facility] Address [address] [place] [address] Care Team Providers Name Role Phone PCP, [...] Onset Date Status Concussion Inactive Anxiety Inactive [id number] Inactive Contusion of toe of right foot [...] nding Date Date Provider Departed [facility] June 25, June 25, [facility] 2019 1:06pm 2:29pm [place] Departed [facility] Emergency July 29July 29, 2019 Emergency [...]
--- OUTSIDE RECORDS SUMMARY | 2022-08-24 14:38 | XMS_ITS | Continuity of Care Document ---
:1990 Author Organization [facility] Address [address] [place] [address] Care Team Providers Name Role Phone PCP, Not Given Primary Care Physician Unavailable Adin Coelho Attending Physician Allergies, Adverse Reactions, Alerts Allergen [...] Ext Jt w/o Cont January 08, 2017 active Knee 1 or 2 vw RT November [...] 22, 2016 56 mg/dL 40-60 The [facility] Cholesterol Education Program (NCEP) has set [...] have a copy on file here at [facility]? No A pril 2016 10:20am Does patient have an Advanced Directive? No October 17, 2011 10:30am Pt has a Living Will? No October 17, 2011 10: 30am Pt has a Power of Slumber Room Attendant? No October 16 10:30am Chief Complaint and Reason for Visit Encounter Admit Date Chief Complaint Reason for Visit Departed Clinical January 08, 2017 7:44pm RT KNEE PAIN ASSESS OSTEOCHONDRONA M25.561 Hospital Discharge Instructions No known hospital discharge instructions. Hospital Discharge Medications Medication Dose Units Route Sig Qty Days Order Date Status In structions Levothyroxine 225 mcg ORAL DAILY November 142016 Amoxicillin-Pot 1 TAB ORAL TWICE A 28 November 14 Acti ve Clavulanate 2016 Encounters Encounter Facility Location Admit/Visit Discharge/Departure Atte nding Date Date Provider Departed [facility] January 08, 2017 January 08, 2017 7:45pm Jose dugan [facility] 7:44pm [facility] Departed [facility] November 22November 22, 2016 9:02pm Severiano Gallegos [facility] 2016 9:01pm Departed [facility] November 22November 22, 2016 8:58pm Severiano Gallegos [facility] 2016 8:57pm Departed [facility] Walk In November 22November 22, 2016 2:58p m [facility] [place] 2016 2:57pm Departed [facility] Emergency November 14November 14, 2016 1:03pm [facility] Department 2016 9:32am Functional Status No known functional status. Immunizations No known immunizations. Payers Payer Policy Type Covered Covered Relationship Subscriber Subs criber Id Name Libertarian Libertarian Id PADMINI BARILALS [id number] Self/Same as ERAN ARTIS [id number] CROSS OUT CHANDRA 7 Patient OF STATE [facility] PADMINI DICKSON [id number] Child-Son/Daught RANDOLPH SCHWARZ E [id number] CROSS (DO CHANDRA er NOT USE) SELF [...] 14, 2016 9 :46am Respiration 20 RPM 12-24 November 14, 2016 9 :46am Pulse Oximetry 99 % 95-100 November 14, 2016 9 :46am Blood Pressure Systolic 109 100-140 November 9:46am Blood Pressure Diastolic 68 50-85 November 032016 9:46am Body Mass Index n/a
--- OUTSIDE RECORDS SUMMARY | 2022-08-24 14:38 | XMS_ITS | Continuity of Care Document ---
:1990 Author Organization [facility] Address [address] [place] [address] Care Team Providers Name Role Phone Landry [...] Amoxicillin-Po 1 TAB ORAL TWICE A November 14February 20, 2017 Discontinued t Clavulanate 2016 [Augmentin] valacyclovir November 26Apremb r 6, Discontinued 2017 2017 Hydroxyzine 50 MG ORAL FOUR AprilApril 17, Discontinued Hcl TIMES 2017 DAILY PRN For anxiety Problem List Active Problems Medical Problem Onset Date Status Concussion Active Inactive/Resolved Problems Medical Problem Onset Date Status Anxiety Inactive Contusion of toe of right [...] 02, 2018 57 mg/dL 40-60 [facility] Cholesterol Education Program (NCEP) has set the [...] have a copy on file here at [facility]? No A [facility] 2016 10:20am Does patient have an Advanced Directive? No October 17, 2011 10:30am Pt has a Living Will? No October 17, 2011 10: 30am Pt has a Power of Music Video Director? No October 16 12 10:30am Hospital Discharge Instructions Additional Discharge Instructions -You have received a nd injury to the head and a concussion was diagnosed. - A careful exam has been ca rried out and no signs of serious complications were found. -If you notice any changes i n behavior, vomiting, dizziness, worsening headache, double vision or excessive drowsiness, please go to the nearest emergency room. -Recovery time is variable a cross individuals and patients. -Monitoring for 48 hours aft er the concussion by a responsible adult is important. -Brain rest: No reading, TV, looking at phone for the first day or so. Lay in a room with lights dimmed, low stimulation. -Tylenol is preferred for he adache. No NSAIDS (Ibuprofen, Advil, Aleve) at this time. -You can Ice or heat the sit e of pain on your head. -No alcohol or sleeping pill should be used. Instruction/Education Provided Concussion, Adult (DC) Hospital Discharge Medications Medication Dose Units Route Sig Qty Days Order Date Status In structions Levothyroxine 225 MCG ORAL DAILY November 142016 Amoxicillin-Pot 1 TAB ORAL TWICE A November 14, Disc ontinued Clavulanate 2016 Mirena May valacyclovir November 26, Disconti nu2017 Hydroxyzine Hcl 50 MG ORAL FOUR April Disco ntinued 2017 DAILY PRN For anxiety Encounters Encounter Facility Location Admit/Visit Discharge/Departure Atte nding Date Date Provider Departed [facility] May 26, May 26, [facility] 2017 12:15pm 2:03pm Gene Departed [facility] April 10April 10, [facility] 10[facility], [facility] January 02, 2018 12:18p [facility] 12:17pm Ragini Departed [facility] November 26November 26, 2017 3:58pm [facility] 2018 2[facility]58pm [facility] Department 2016 8:16pm 9:10pm Functional Status No known functional status. Immunizations No known immunizations. Payers Payer Name Policy Type Covered Covered Relationship Subscriber Sub scriber Republican Republican Id Id [employer] [id number] Self/Same as [employer] [id number] OUT OF STATE CHANDRA 37 Patient FINANCIAL Personal ERAN 50% Self/Same as ERAN PACKOSE 50% ASSISTANCE CHANDRA Patient [employer] RANDOLPH [id number] Child-Son/Daugh RANDOLPH ARTIS [id number] CROSS (DO NOT CHANDRA ter USE) SELF PAY Personal Plan of Care Instructions Concussion, Adult (DC) Social History Query Response Start Date Stop Date Smoking Status Never smoker Vital Signs Vital Reading Result Reference Range Collection Date/ Time Height n/a Weight 86.183 kg May 26, 2018 12:56pm Temperature 98.3 F 97.6 F-99.6 F May 26, 2018 12:56pm Pulse 83 BPM 60-100 May 26, 2018 12:56pm Respiration 20 RPM 07-28May 26, 2018 12:56pm Pulse Oximetry 99 % 95-100 May 26, 2018 12:56pm Blood Pressure Systolic 116 100-140 May 26, 2018 12:56pm Blood Pressure Diastolic 74 50-85 May 26, 2018 12:56pm Body Mass Index n/a
--- OUTSIDE RECORDS SUMMARY | 2022-08-24 14:39 | XMS_ITS | Continuity of Care Document ---
:1990 Author Organization [facility] Address [address] [place] [address] Phone Care Team Providers Name Role Phone PCP, of Choice Primary Care Provider Unavailable Allergies, Adverse Reactions, Alerts No known allergies. Medications Medication Status Dose Units Route Directions Qty Days Start End Ins tructions Date Date Levothyroxine Active 225 MCG PO DAILY November (Synthroid) , 200 mcg 2017 Tablet 8:51am Amoxicillin-P Discontin 1 TAB PO TWICE A DAY November Ju ly ot ued , Clavulanate 2016 2016 (Augmentin) 11:47am 9:02pm 875-125 mg tablet Mirena Active May 26, 2018 11:55am valacyclovir Discontin November ued 2017, 2:17pm 2017 9:59am Hydroxyzine Discontin 50 MG PO FOUR TIMES Sep tem Hcl ued DAILY er 2017, 10:24am 2017 11:04p m Problems Active Problems Medical Problem Onset Date Status ADHD (attention deficit hyperactivity disorder), 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 Sleep apnea June 25, 2012 Active Diarrhea of presumed infectious origin February 14, 2015 A ctive Vaginitis and vulvovaginitis September 22, 2014 Active Generalized abdominal pain March 28, 2017 Active Anxiety state June 12, 2010 Active Dysthymia December 04, 2012 Active Diarrhea March 28, 2017 Active Dysuria February 14, 2015 Active Hypothyroidism March 14, 2011 Active Noncompliance with treatment March 28, 2017 Active Herpes simplex virus (HSV) infection December 13, 2014 Act matias Bacterial enteritis October 24, 2017 Active Pharyngitis due to Streptococcus species August 26, 2017 Active Viral upper respiratory tract infection July 20, 2016 Active Exposure to sexually transmitted disease (STD) February 22 Active Active Knee pain December 18, 2016 Active Gastroesophageal reflux disease October 31, 2011 Active Benign neoplasm of skin March 14, 2011 Active Depressive disorder November 19, 2012 Active Constipation November 19, 2012 Active Inactive/Resolved Problems Medical Problem Onset Date Status Concussion Resolved Anxiety Resolved Contusion of toe of right foot Resolved Advance Directives Advance Directive Response Recorded Date/Time Does patient have an Advanced Directive? No October 17, 2011 9:30am Do we have a copy on file here at [facility]? No A priluh 2016 9:20am Pt has a Living Will? No October 17, 2011 9 :30am Do we have a copy on file here at [facility]? No A priluh 2016 9:20am Pt has a Power of Caretaker Grounds? No October 17, 2011 9:30am Do we have a copy on file here at [facility]? No A pril 2016 9:20am Chief Complaint and Reason for Visit Chief Complaint ABDOMINAL PAIN Encounters Encounter Location(s) Arrival/Admit Date Discharge/Depart Date Provider(s) Departed [facility] July 29, July 29, 2019 [facility] 2019 6:14am 8:01am Center-Emergency Department Departed [facility] June 25, June 25, 2020 [facility] 2019 1:06pm 2:29pm [facility] Urgent [facility] Assessments No Assessments Information Available Family History Relationship Condition Age at Onset Recorded Date/Ti me Parent Hypertension Unknown Functional Status Observation Response Date Recorded Living Situation Alone June 25, 2020 2:25pm Living Situation Home July 29, 2019 7:50am Goals Goals may be documented in an alternate section. Immunizations Immunization Event Date Not Given Dose Silver Lap Machine Tender Lot Vac cine Reason Number Number Informatio n Statement (VIS) Deta il DTP vaccine (H) May 16, 1990 DTP vaccine (H) December 13, 2011 DT Vaccine PED November 28, 1990 DT Vaccine PED October 22, 1991 DT Vaccine PED December 10, 1995 Hepatitis B Adult April 021996 Hepatitis B Adult Jaimie 1996 Hepatitis B Adult March 11th, Vaccine 1998 Hib Hboc November 28, Conjugate 4 Dose 1990 Schedule (H) Hib Hboc January 22, Conjugate 4 Dose 1990 Schedule (H) Influenza, September Pandemic 2009 Formulation, H1N1 (H) Influenza Split February Virus 3YR Older 2014 Meningococcal January 29, Conjugate MCV4 2007 (Menactra) Measles,Mumps,Rub December 10, 1995 brooke Vaccine Poliovirus December 20, Vaccine Oral (H) 1989 Poliovirus May 16, Vaccine Oral (H) 1989 Poliovirus October 21, Vaccine Oral (H) 1991 Poliovirus December 10, 1995 Vaccine Oral (H) Tdap October 24, 2006 Tdap August 05, 2011 Mental Status No Mental Status Information Available Medical Equipment No Medical Equipment Information available Insurance Providers Guarantor ERAN ARTIS Address [address] [address] Contact Info. Home Phone: Payer Policy Id Coverage Id Subscriber's Subscriber Id Effective E xpiration Name Date Date [facility] [id number] ERAN ARTIS [id number] OUT OF STATE 537 7 FINANCIAL 50% 50% ERAN ARTIS 50% ASSISTANCE [facility] [id number] RANDOLPH ARTIS [id number] August 09, [place] (DO NOT 2008 USE) SELF PAY Self N/A Plan of Treatment Future Tests Future scheduled test information is unavailable Pending Tests Pending diagnostic test information is unavailable Future Visits Future appointment information is unavailable Referrals to Other Providers Reason for Referral Referral Start Date Provider Provider Conta ct Provider Address Information Pcp No Pcp No Future Procedures Future procedure information is unavailable Future Medications Future medication information is unavailable Patient Instructions Diarrhea in Adolescents and Adults COVID 19 General Instructions- decrease the spread of coronavirus ([facility]) Social History Smoking Status Status Date of Observation Never smoked tobacco (finding) June 25, 2020 2:2 5pm Observation Status Observation Response Date of Response Alcohol Use Yes June 25, 2020 2:25pm alcohol intake frequency holidays/special occasions only Nov 2019 2:25pm substance use type does not use June 25, 2020 2:25pm Smoking Status Never smoker June 25, 2020 2:25pm Assigned Sex Female Vital Signs Vital Reading Result Reference Range Collection Date/ Time Height 62 [in_i] July 29, 2 019 6:16am Weight 97.52 kg July 29, 2 019 6:16am Body Temperature 97.7 [degF] 97.6-99.6 July 29, 2019 6:16am Heart Rate 92 /min 60-100 July 29, 019 6:16am Respiratory rate 16 /min 12-24 July 29, 2019 6:16am Oxygen saturation by Pulse 98 % 95-100 Dece 2018 6:16am oximetry BP Systolic 140 mm[Hg] 100-140 July 29, 2 019 6:16am BP Diastolic 94 mm[Hg] 50-85 July 29, 2 019 6:16am Height 62 [in_i] June 25, 2 020 1:20pm Weight 97.52 kg June 25, 2 020 1:20pm Body Temperature 98.1 [degF] 97.6-99.6 June 25, 2020 1:20pm Heart Rate 96 /min 60-100 June 25, 2 020 1:20pm Respiratory rate 16 /min -June 25, 2020 1:20pm Oxygen saturation by Pulse 98 % 95-100 [facility] 2019 1:20pm oximetry BP Systolic 122 mm[Hg] 100-140 June 25, 2 020 1:20pm BP Diastolic 76 mm[Hg] 50-85 June 25, 2 020 1:20pm BMI (Body Mass Index) 39.3 kg/m2 June 062019 1:20pm Hospital Discharge Instructions
--- OUTSIDE RECORDS SUMMARY | 2022-08-24 14:39 | XMS_ITS | Continuity of Care Document ---
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 TECHNIQUE: Multiplanar sequence MR imag ing of the knee was performed without contrast. FINDINGS: There is increased signal on the proton density sequences involving the distal femoral metadiaphysis, compatible with m arrow reactivation. Arising from the anteromedial aspect of the proximal tibial metaphysis, is a nonaggressive bony exostosis projecting away from the joint measuring 7 mm located just proximal to the MCL inserti on. There may be a minimal amount of edema signal around the tip of this exos tosis although no significant cartilaginous cap, or aggressive appeara nce is identified. The anterior cruciate ligament is intac t. The posterior cruciate ligament is inta ct. The medial collateral ligament is intac t. The fibular collateral ligament is inta ct. The iliotibial band is intact. The biceps femoris tendon is intact. The pop liteus tendon is intact. Seen on the coronal proton density sequ ences, but not necessarily corroborated on the sagittal sequences is some signal heterogeneity/indistinctness of the free margin of the body of the medial me niscus, series 10 image 16. Articular cartilage in the medial dejan rtment is intact. There is an intraosseous ganglion proje cting just below the anterior root insertion of the lateral meniscus measur ing 5 mm. Immediately anterior to the ACL insertion, anterior to the lateral r oot insertion, and lateral to the medial root insertion of the menisci, is a lobu lated T2 hyperintense structure measuring approximately 11 x 1.4 cm comp atible with a ganglion cyst. There may be some moderate chondral loss along the lateral femoral condyle The tibial tubercle/trochanter groove d istance is 1.7 cm which is considered borderline. There is lateral tilting of the patella . The extensor mechanism is intact. There is no joint effusion. There is no large intra-articular body. There is no popliteal (Tai?s) cyst. IMPRESSION: 1. Nonaggressive bony exostosis project ing off the anteromedial aspect of the proximal tibial metaphysis lies just jose r p to the distal aspect of the medial collateral ligament suggestive of osteoc hondroma. Although there is no evidence of MCL tear, there may be an element of mild mechanical impingement, as evidence by a minimal amount of edema overlying t he tip of the osteochondroma. No suspicious chondral cap is identified. 2. Increased signal of the distal femor al metadiaphysis may be related to marrow activation, borderline within nor mal limits for the patient's age. 3. Increased tibial tubercle trochlear groove distance, with lateral subluxation and tilting of the patella m ay be related to patellofemoral tracking abnormalities. 4. Intraosseous ganglion at the anterio r insertion of the lateral meniscus and a soft tissue ganglion projecting anteri or to the ACL insertion. There may be a occult tearing of the anterior insertion s of the lateral and/or medial menisci. 5. Possible free margin fraying of the midbody of the medial meniscus dd: 01/09/17 0717 <Electronically signed by Kayode Casillas MD in OV> 01/09/17 1528 Radiology Report November 26, 2017 3:43pm Gary Steward MD com pleted [facility] RADIOLOGY REPORT PATIENT NAME: ERAN ARTIS [id number] DATE OF : 1990 ATTENDING/ER PHYSICIAN: ER/ATTENDING PHYSICIAN: Sally Denny PRIMARY CARE PHYS: No Pcp ADMITTING PHYSICIAN: CONSULTING PHYSICIAN: PROCEDURE DATE: 11/26/17 REPORT STATUS: Signed DICTATING PHYSICIAN: Gray Steward MD REASON FOR EXAM: horse stepped on pinky toe, pain in toe and top of foot RIGHT FOOT, 3 VIEWS TECHNIQUE: AP, lateral, and eversion ob lique. COMPARISON: None. FINDINGS: No opaque foreign body, fract ure, dislocation, destructive lesion, arthritis or other osseous or joint abn ormality are demonstrated in the right foot. IMPRESSION: Negative exam. dd: 11/26/17 1543 <Electronically signed by Gray Steward MD in OV> 11/26/17 1545 Advance Directives Advance Directive Response Recorded Date/Time Does patient have an Advanced Directive? No October 17, 2011 10:30am Do we have a copy on file here at [facility]? No A pril 2016 10:20am Pt has a Living Will? No October 17, 2011 1 0:30am Do we have a copy on file here at [facility]? No A pril 2016 10:20am Pt has a Power of Food Selector? No October 17, 2011 10:30am Do we have a copy on file here at [facility]? No A pril 2016 10:20am Chief Complaint and Reason for Visit Chief Complaint LAB/THYROID DIS LAB/THYROID XR/INJ WRIST INJURY XR SAT/RT WRIST XR LAB DRAW HEADACHE Xray RT KNEE PAIN ASSESS OSTEOCHO NDRONA M25.561 UNKNOWN MEDICAL RIGHT KNEE Lab TAMPON STUCK IN VAGINA REFERRED ABDOMINAL PAIN Encounters Encounter Location(s) Arrival/Admit Date Discharge/Depart Provi buddy(s) Date Departed [facility] Physician/Provi Medical 12:00am Medent buddy Office Center-CONV Misc Visit Comp Pain location Departed [facility] January 14, 1999 January 14, 1999 null Emergency Medical 12:00am Center-Emergency Department Departed [facility] August 15, 2000 August 15, 2000 Long [facility] Clinical Medical 12:00am Center-Outpatient Conversion Departed [facility] April 30, April 30, 2001 Nader [facility] 2000 12:00am Center-Outpatient Conversion Departed [facility] November 03, 2001 November 03, 2001 Gilma Shipman Clinical Medical 12:00am MD Eve Center-Outpatient Conversion Departed [facility] November 06, 2001 November 06, 2001 Landry pisano [facility] Center-DI 12:00am MD Synergy Departed [facility] April 11, April 11, 2002 null Emergency Medical 2001 12:00am Center-Emergency Department Departed [facility] June 24June 24, 2002 Yasmany Larrow , Referred Medical 2001 12:00am Center-Referred Lab Departed [facility] April 29, April 29, 2003 null Emergency Medical 2002 12:00am Center-Emergency Department Departed [facility] September 06, 2003 September 06, 2003 Carolin Garcia Referred Medical 12:00am Center-Referred Lab Departed [facility] August 02, August 02, 2005 Yasmany [facility] 2004 12:00am Center-Outpatient Conversion Departed [facility] January 20, 2006 January 20, 2006 null Emergency Medical 12:00am Center-Emergency Department Departed [facility] February 26, 2006 February 26, 2006 Lee Dickinson [facility] 12:00am MD Cresencio Lin Departed [facility] February 23, 2008 February 23, 2008 null Emergency Medical 12:00am Center-Emergency Department Departed [facility] March 07, 2008 March 07, 2008 null Emergency Medical 12:00am Center-Emergency Department Departed [facility] June 05, 2008 June 05, 2008 [facility] Emergency Medical 12:00am Center-Emergency Department Departed [facility] June 29, June 29, 2008 Piper salas Physician/Provi Medical 2007 12:00am [facility] MERCHANDISING CONSULTANT Departed [facility] December 16, 2008 December 16, 2008 Maite Referred Medical 12:00am MD Shabnam Center-Referred Lab Departed [facility] December 30, 2008 December 30, 2008 ANDREIA Monteiro Referred Medical 12:00am [place] Center-Referred Lab Departed [facility] March 03, 2009 March 04, 2009 null Emergency Medical 12:00am Center-Emergency Department Departed [facility] July 15, July 15, 2009 Bryce Luo [facility] 2008 12:00am MD Dupont Departed [facility] September 16, September 16, 2009 Piper salas Physician/Provi Medical 2009 12:00am Medent buddy Office [facility] Visit rn MERCHANDISING CONSULTANT Registered [facility] October 17, 2011 Onelia metcalf [facility] 10:30am SALTY [facility] Departed [facility] March 06, 2012 March 07, 2012 null Emergency Medical 11:09pm 12:18am Center-Emergency Department Registered [facility] November 19, 2012 Marcia mariee Referred Medical 7:50pm , SALTY [place] pattern puncher Departed [facility] February 17, 2013 February 17, 2013 Onelia Mateo aini , Physician/Provi Medical 12:00am PA buddy Office [facility] pattern puncher Departed [facility] April 22, April 22, 2013 Tristin Chow Physician/Provi Medical 2012 12:00am PA buddy Office [facility] Visit pattern puncher Departed [facility] May 20, 2013 May 20, 2013 Yeny Chow Physician/Provi Medical 12:00am PA buddy Office [facility] Visit pattern puncher Departed [facility] May 21, 2013 May 21, 2013 Yeny Chow Physician/Provi Medical 12:00am PA buddy Office [facility] Visit pattern puncher Departed [facility] June 22, June 22, 2013 Onelia Chow Physician/Provi Medical 2012 12:00am PA buddy Office [facility] Visit rn [facility]gent [place] Departed [facility] July 01, July 01, 2013 Onelia Chow Physician/Provi Medical 2012 12:00am PA buddy Office [facility] Visit pattern puncher Departed [facility] July 24July 24, 2013 Conver josue Physician/Provi Medical 2012 12:00am Medent buddy Office [facility] Visit pattern puncher Departed [facility] August 21, 2013 August 21, 2013 Sung savage Physician/Provi Medical 12:00am Medent buddy Office [facility] Visit pattern puncher Departed [facility] September 17, September 17, 2013 Conver josue Physician/Provi Medical 2013 12:00am Medent buddy Office [facility] Visit pattern puncher Departed [facility] September 28, September 28, 2013 Conver josue Physician/Provi Medical 2013 12:00am Medent buddy Office [facility] Visit rn [facility] Departed [facility] October 09, 2013 October 09, 2013 Wilber roldan Physician/Provi Medical 12:00am Medent buddy Office [facility] Visit pattern puncher Departed [facility] November 03, 2013 November 04, 2013 null Emergency Medical 9:27pm 1:02am Center-Emergency Department Departed [facility] November 18, 2013 November 18, 2013 Onelia moran Physician/Provi Medical 12:00am PA buddy Office [facility] Visit pattern puncher Departed [facility] January 13, 2014 January 13, 2014 SALTY Limon Physician/Provi Medical 12:00am buddy Office [facility] Visit rn [facility]gent [place] Departed [facility] July 22July 18th, 2014 Onelia Chow Physician/Provi Medical 2013 12:00am PA buddy Office [facility] Visit pattern puncher Registered [facility] July 22, Onelia Chow , [facility] 2013 9:09pm PA [facility] pattern puncher Departed [facility] September 02, 2014 September 02, 2014 Aristides Gan Physician/Provi Medical 12:00am RD buddy Office [facility] Visit pattern puncher Departed [facility] September 15, September 15, 2014 Piper salas Physician/Provi Medical 2014 12:00am Medent buddy Office [facility] Visit pattern puncher Departed [facility] September 22, September 22, 2014 Piper salas Physician/[facility]vi Medical 2014 12:00am Medent buddy Office [facility] Visit rn MERCHANDISING CONSULTANT Departed [facility] November 02, 2014 November 02, 2014 Onelia moran Physician/Provi Medical 12:00am PA buddy Office [facility] Visit pattern puncher Registered [facility] November 02, 2014 Onelia metcalf [facility] 8:53pm PA [facility] pattern puncher Departed [facility] November 15, 2014 November 15, 2014 Rashad ion Physician/Provi Medical 12:00am Medent buddy Office [facility] Visit pattern puncher Departed [facility] November 29, 2014 November 29, 2014 Rashad ion Physician/Provi Medical 12:00am Medent buddy Office [facility] Visit pattern puncher Departed [facility] December 13, 2014 December 13, 2014 Onelia metcalf Physician/Provi Medical 12:00am PA buddy Office [facility] Visit pattern puncher Departed [facility] February 07, 2015 February 07, 2015 Onelia metcalf Physician/Provi Medical 12:00am PA buddy Office [facility] Visit pattern puncher Departed [facility] February 14, 2015 February 14, 2015 Wilber roldan Physician/Provi Medical 12:00am Medent buddy Office [facility] Visit rn Urgent Judy Registered [facility] February 14, 2015 Vikas thompson [facility]- 7:59pm Urgent [facility] [place] Departed [facility] February 16, 2015 February 16, 2015 Onelia kuhn , Physician/Provi Medical 12:00am PA buddy Office [facility] Visit pattern puncher Registered [facility] February 16, 2015 Onelia Somain i , Referred Medical 8:05pm PA [facility] pattern puncher Registered [facility] April 01, 2015 Onelia paz , Clinical Medical 12:40pm PA Center-Laboratory Departed [facility] October 11, 2015 October 11, 2015 Conversio n Physician/Provi Medical 12:00am Medent buddy Office [facility] Visit pattern puncher Departed [facility] October 18, 2015 October 18, 2015 Convers ion Physician/Provi Medical 12:00am Medent buddy Office [facility] Visit pattern puncher Departed [facility] November 30, 2015 November 30, 2015 Onelia moran Physician/Provi Medical 12:00am PA buddy Office [facility] Visit pattern puncher Departed [facility] January 25, 2016 January 25, 2016 Onelia kuhn , Physician/Provi Medical 12:00am PA buddy Office [facility] Visit pattern puncher Departed [facility] February 23, 2016 February 23, 2016 Conversio n Physician/Provi Medical 12:00am Medent buddy Office [facility] Visit pattern puncher Departed [facility] February 24, 2016 February 24, 2016 Conversio n Physician/Provi Medical 12:00am Medent buddy Office [facility] Visit pattern puncher Departed [facility] February 29, 2016 February 29, 2016 Onelia kuhn , Physician/Provi Medical 12:00am PA buddy Office [facility] Visit pattern puncher Departed [facility] July 20, July 20, 2016 Refugio Roche Physician/Provi Medical 2015 12:00am Aubree Stoddard PRN buddy Office [facility] Visit rn Urgent Judy Departed [facility] August 23, 2016 August 23, 2016 Yeny Chow , Physician/Provi Medical 12:00am PA buddy Office [facility] Visit pattern puncher Departed [facility] November 14, 2016 November 14, 2016 null Emergency Medical 9:32am 1:03pm Center-Emergency Department Departed [facility] November 22, 2016 November 22, 2016 Onelia moran Physician/Provi Medical 12:00am PA buddy Office [facility] Visit pattern puncher Departed [facility] November 22, 2016 November 22, 2016 Severiano Gallegos , Clinical Medical Center[facility] 2:57pm 2:58pm OPERATOR [employer] Walk In [facility] Departed [facility] November 22, 2016 November 22, 2016 Severiano Gallegos , Referred Medical 8:57pm 8:58pm OPERATOR [employer] [facility] pattern puncher Departed [facility] November 22, 2016 November 22, 2016 Severiano Gallegos , Referred Medical 9:01pm 9:02pm OPERATOR [employer] [facility] pattern puncher Departed [facility] November 27, 2016 November 27, 2016 Rebeca Mathew Physician/Provi Medical 12:00am REMELT FURNACE EXPEDITER buddy Office [facility] Visit rn Urgent Judy Departed [facility] November 30, 2016 November 30, 2016 Eli Jacobo Physician/Provi Medical 12:00am MariSally huggins P buddy Office [facility] Visit pattern puncher Departed [facility] December 04, 2016 December 04, 2016 Eli Jacobo Physician/Provi Medical 12:00am Sally Guerra P buddy Office [facility] Visit pattern puncher Departed [facility] December 05, 2016 December 05, 2016 Onelia Chow , Physician/Provi Medical 12:00am PA buddy Office [facility] Visit pattern puncher Departed [facility] December 18, 2016 December 18, 2016 Conversion Physician/Provi Medical 12:00am Medent buddy Office [facility] Visit dietetic intern&Rehab Departed [facility] January 08, 2017 January 08, 2017 Dhara Miller [facility] 7:44pm 7:45pm Adin [facility] Departed [facility] January 10, 2017 January 10, 2017 Conversion Physician/Provi Medical 12:00am Medent buddy Office [facility] Visit dietetic intern&Rehab Departed [facility] January 16, 2017 January 16, 2017 Conversio n Physician/Provi Medical 12:00am Medent buddy Office [facility] Visit dietetic intern&Rehab Departed [facility] January 29, 2017 January 29, 2017 Conversio n Physician/Provi Medical 12:00am Medent buddy Office [facility] Visit dietetic intern&Rehab Departed [facility] February 20, 2017 February 20, 2017 null Emergency Medical 9:57pm 10:43pm Center-Emergency Department Departed [facility] February 21, 2017 February 21, 2017 Conversio n Physician/Provi Medical 12:00am Medent buddy Office [facility] Visit pattern puncher Discharged [facility] February 21, 2017 March 27, 2017 Landry Groves [facility] Medical 4:45pm 4:21pm MD [facility] Departed [facility] February 22, 2017 February 22, 2017 BALDEMAR brito Physician/Provi Medical 12:00am Rosa Hare buddy Office [facility] Visit rn Urgent [facility] Departed [facility] February 22, 2017 February 22, 2017 BALDEMAR brito [facility]- 9:12pm 9:13pm Rosa Maldonado er Urgent Care [facility] Departed [facility] February 26, 2017 February 26, 2017 Conversindira n Physician/Provi Medical 12:00am Medent buddy Office [facility] Visit dietetic intern&Rehab Departed [facility] February 27, 2017 February 27, 2017 Conversindira n Physician/Provi Medical 12:00am Medent buddy Office [facility] Visit rn MERCHANDISING CONSULTANT Departed [facility] March 28, 2017 March 28, 2017 Genie Velez Physician/Provi Medical 12:00am Joleen APR N buddy Office [facility] Visit pattern puncher Departed [facility] March 29, 2017 March 29, 2017 Genie Velez Referred [facility] 11:35am 11:36am Mertens REMELT FURNACE EXPEDITER [facility] pattern puncher Departed [facility] March 29, 2017 March 29, 2017 Genie Velez Clinical Medical 4:45pm 4:46pm Mertens REMELT FURNACE EXPEDITER Center-Laboratory Departed [facility] June 20, June 20, 2017 ANDREIA Beavers Physician/Provi Medical 2016 12:00am Jose buddy Office [facility] Visit rn Urgent [facility] Departed [facility] July 01, July 01, 2017 [facility] josue Physician/Provi Medical 2016 12:00am Medent buddy Office [facility] Visit pattern puncher Departed [facility] July 04, July 04, 2017 null Emergency Medical 2016 8:16pm 9:10pm Center-Emergency Department Departed [facility] July 31, July 31, 2017 [facility] josue Physician/Provi Medical 2016 12:00am Medent buddy Office [facility] Visit rn MERCHANDISING CONSULTANT Departed [facility] August 26, 2017 August 26, 2017 [facility] ANDREIA Physician/Provi Medical 12:00am Farheen buddy Office [facility] Visit rn Urgent [place] Departed [facility] October 24, 2017 October 24, 2017 ANDREIA Beavers Physician/Provi Medical 12:00am Jose buddy Office [facility] Visit rn Urgent [facility] Departed [facility] November 26, 2017 November 26, 2017 null Emergency Medical 2:58pm 3:58pm [facility] rn [facility], 2018 January 02, 2018 Ragini Agarwal Physician/Provi Medical 12:00am REMELT FURNACE EXPEDITER buddy Office [facility] Visit rn [facility] January 02, 2018 January 02, 2018 Ragini Agarwal Referred [facility] 12:17pm 12:18pm REMELT FURNACE EXPEDITER Anne rn [facility] March 05, 2018 March 05, 2018 Convers ion Physician/Provi Medical 12:00am Medent buddy Office [facility] [facility] r[facility] March 06, 2018 March 06, 2018 Convers ion Physician/Provi Medical 12:00am [facility] Visit rn MERCHANDISING CONSULTANT Departed [facility] April 10, April 10, 2018 null Emergency Medical 2017 10:02am 11:26am [facility], April 16, 2018 Conv ersion Physician/[facility] 2017 12:00am [facility] rn [facility] April 17, April 17, 2018 Conv ersion Physician/[facility] 2017 12:00am [facility] rn [facility] April 30, April 30, 2018 Conv ersion Physician/[facility] 2017 12:00am [facility] Visit rn [facility] May 26, 2018 May 26, 2018 nul l Emergency Medical 12:15pm 2:03pm Anne rn [facility] June 19, June 19, 2018 Conver josue Physician/[facility] Medical 2017 12:00am [facility] July 29, July 29, 2019 null Emergency Medical 2018 6:14am 8:01am Center-Emergency Department Assessments No Assessments Information Available Family History Relationship Condition Age at Onset Recorded Date/Ti me Parent Hypertension Unknown Functional Status Observation Response Date Recorded Living Situation Alone April 10, 2018 10:59am Living Situation Home July 29, 2019 7:50am Living Situation Alone May 26, 2018 1 2:56pm Living Situation Home July 04, 2017 8:44pm Living Situation Home February 20, 2017 10:4 2pm Living Situation Home November 14, 2016 1:0 3pm With Family November 14, 2016 1:0 3pm Goals Goals may be documented in an alternate section. Immunizations Immunization Event Date Not Given Dose [employer] Lot Vac cine Reason Number Number Informatio n Statement (VIS) Deta il DTP vaccine (H) May 16, 1990 DTP vaccine (H) December 13, 2011 DT Vaccine PED November 28, 1990 DT Vaccine PED October 22, 1991 DT Vaccine PED December 10, 1995 Hepatitis B Adult April 02, Vaccine 1996 Hepatitis B Adult Jaimie 1996 Hepatitis B Adult October 13, Vaccine 1997 Hib Hboc November 28, Conjugate 4 Dose 1990 Schedule (H) Hib Hboc January 22, Conjugate 4 Dose 1990 Schedule (H) Influenza, September Pandemic 2009 Formulation, H1N1 (H) Influenza Split September Virus 3YR Older 2014 Meningococcal January 29, Conjugate MCV4 2007 (Menactra) Measles,Mumps,Rub December 10, 1995 brooke Vaccine Poliovirus December 20, Vaccine Oral (H) 1989 Poliovirus May 16, Vaccine Oral (H) 1989 Poliovirus October 21, Vaccine Oral (H) 1991 Poliovirus December 10, 1995 Vaccine Oral (H) Tdap October 24, 2006 Tdap August 05, 2011 Mental Status Observation Response Date Recorded Comprehension Ability Understands Concepts February 20, 2017 1 0:39pm Medical Equipment No Medical Equipment Information available Insurance Providers Guarantor ERAN ARTIS Address [address] [place] [address] Contact Info. Home Phone: Payer Policy Id Coverage Id Subscriber's Subscriber Id Effective E xpiration Name Date Date PADMINI RUTH [id number] ERAN ARTIS [id number] OUT OF STATE 537 7 FINANCIAL 50% 50% ERAN ARTIS 50% ASSISTANCE [facility] PDAMINI [id number] RANDOLPH ARTIS [id number] August 09 (DO NOT 2008 USE) SELF PAY Self N/A Plan of Treatment Future Tests Future scheduled test information is unavailable Pending Tests Pending diagnostic test information is unavailable Future Visits Future appointment information is unavailable Referrals to Other Providers Reason for Referral Start Provider Provider Contact Provider Address Referral Date Information Pcp No Pcp No Pcp No Landry Escobar Work Phone: [facility] MD [address] [place] [address] Onelia Chow , Work Phone: [phone] [facility] [place] [address] Onelia Chow , Work Phone: [phone] [place] [address] Chio Gleason , Work Phone: [phone] [facility] MD [facility] [address] [facility] [phone] Future Procedures Future procedure information is unavailable Future Medications Future medication information is unavailable Patient Instructions Headaches Sinus Sinusitis Causes Sinusitis Acute Sinusitis Self Care Tampons Sanitary Pads Ch Teen Contusion Bone Tx Concussion, Adult (DC) Diarrhea in Adolescents and Adults Social History Smoking Status Status Date of Observation Never smoked tobacco (finding) July 29, 2019 7:2 3am Observation Status Observation Response Date of Response Alcohol Use Yes July 29, 2019 7:23am alcohol intake frequency holidays/special occasions only Jul 7:23am Smoking Status Never smoker July 29, 2019 7:23am Assigned Sex Female Vital Signs Vital Reading Result Reference Range Collection Date/ Time Height 61 [in_i] November 22, 2016 1:26pm Weight 38.27 kg July 04, 2 017 12:00am Body Temperature 98.3 [degF] 97.6-99.6 May 26, 2 018 12:00am Heart Rate 83 /min 60-100 May 26 12:00am Respiratory rate 20 /min 12-24 May 26, 2 018 12:00am Oxygen saturation by Pulse 99 % 95-100 [facility] 2017 12:00am oximetry BP Systolic 116 mm[Hg] 100-140 May 26 12:00am BP Diastolic 74 mm[Hg] 50-85 May 26 12:00am BMI (Body Mass Index) 33.4 kg/m2 November 1:26pm Height 61 [in_i] June 29, 2 008 1:46pm Weight 68.49 kg June 29, 2 008 1:46pm BP Systolic 110 mm[Hg] 100-140 June 29, 2 008 1:46pm BP Diastolic 60 mm[Hg] 50-85 June 29, 2 008 1:46pm BP Systolic 92 mm[Hg] 100-140 September 16, 2 010 12:32pm BP Diastolic 60 mm[Hg] 50-85 September 16, 2 010 12:32pm Height 61 [in_i] May 20 2:41pm Heart Rate 88 /min 60-100 May 20 2:41pm Respiratory rate 18 /min 12-May 20, 2 013 2:41pm BP Systolic 124 mm[Hg] 100-140 May 20 2:41pm BP Diastolic 76 mm[Hg] 50-85 May 20 2:41pm Height 62 [in_i] June 22, 2 013 9:59am Weight 68.03 kg June 22, 2 013 9:59am Heart Rate 72 /min 60-100 June 22, 2 013 9:59am Respiratory rate 810 /min -June 22, 2013 9:59am BP Systolic 120 mm[Hg] 100-140 June 22, 2 013 9:59am BP Diastolic 78 mm[Hg] 50-85 June 22, 2 013 9:59am BMI (Body Mass Index) 27.4 kg/m2 June 052012 9:59am Height 62 [in_i] September 28, 2 014 3:44pm Weight 72.57 kg September 28, 2 014 3:44pm Body Temperature 98.2 [degF] 97.6-99.6 September 28, 2013 3:44pm Heart Rate 76 /min 60-100 September 28, 2 014 3:44pm Respiratory rate 16 /min -September 28, 2013 3:44pm BP Systolic 114 mm[Hg] 100-140 September 28, 2 014 3:44pm BP Diastolic 72 mm[Hg] 50-85 September 28, 2 014 3:44pm BMI (Body Mass Index) 29.3 kg/m2 September 062013 3:44pm Height 62 [in_i] January 13, 2014 4:21pm Weight 72.57 kg January 13, 2014 4:21pm Body Temperature 98.2 [degF] 97.6-99.6 January 13, 2014 4:21pm Heart Rate 66 /min 60-100 January 13, 2014 4:21pm Respiratory rate 15 /min -January 13, 2014 4:21pm BP Systolic 110 mm[Hg] 100-140 January 13, 2014 4:21pm BP Diastolic 64 mm[Hg] 50-85 January 13, 2014 4:21pm BMI (Body Mass Index) 29.3 kg/m2 January 13, 2014 4:21pm Height 62 [in_i] July 22, 2 014 4:24pm Weight 80.28 kg July 22, 2 014 4:24pm Body Temperature 98.8 [degF] 97.6-99.6 July 22, 2014 4:24pm Heart Rate 80 /min 60-100 July 22, 2 014 4:24pm BP Systolic 111 mm[Hg] 100-140 July 22, 2 014 4:24pm BP Diastolic 71 mm[Hg] 50-85 July 22, 2 014 4:24pm BMI (Body Mass Index) 32.4 kg/m2 July 052013 4:24pm Height 62 [in_i] September 22, 2 015 3:38pm Weight 83.91 kg September 22, 2 015 3:38pm BP Systolic 110 mm[Hg] 100-140 September 22, 2 015 3:38pm BP Diastolic 88 mm[Hg] 50-85 September 22, 2 015 3:38pm BMI (Body Mass Index) 33.8 kg/m2 September 052014 3:38pm Height 62 [in_i] November 02, 2014 11:48am Weight 77.79 kg November 02, 2014 11:48am Heart Rate 80 /min 60-100 November 02, 2014 11:48am Respiratory rate 20 /min -November 02, 5 11:48am BP Systolic 120 mm[Hg] 100-140 November 02, 2014 11:48am BP Diastolic 70 mm[Hg] 50-85 November 02, 2014 11:48am BMI (Body Mass Index) 31.4 kg/m2 October 11:48am Weight 78.92 kg December 13, 2014 1 0:03am Heart Rate 68 /min 60-100 December 13, 2014 1 0:03am Respiratory rate 12 /min 12-24 December 13, 2014 10:03am BP Systolic 112 mm[Hg] 100-140 December 13, 2014 1 0:03am BP Diastolic 62 mm[Hg] 50-85 December 13, 2014 1 0:03am Height 61 [in_i] February 14, 2015 5:27pm Weight 78.92 kg February 14, 2015 5:27pm Body Temperature 98.2 [degF] 97.6-99.6 February 14, 2015 5:27pm Heart Rate 82 /min 60-100 February 14, 2015 5:27pm BP Systolic 129 mm[Hg] 100-140 February 14, 2015 5:27pm BP Diastolic 86 mm[Hg] 50-85 February 14, 2015 5:27pm BMI (Body Mass Index) 32.9 kg/m2 February 14, 2015 5:27pm Height 61 [in_i] February 16, 2015 2:01pm Weight 77.73 kg February 16, 2015 2:01pm Heart Rate 78 /min 60-100 February 16, 2015 2:01pm Respiratory rate 14 /min -February 16, 2015 2:01pm BP Systolic 98 mm[Hg] 100-140 February 16, 2015 2:01pm BP Diastolic 62 mm[Hg] 50-85 February 16, 2015 2:01pm BMI (Body Mass Index) 32.4 kg/m2 February 16, 2015 2:01pm Height 61 [in_i] October 18, 2015 1:33pm Weight 80.28 kg October 18, 2015 1:33pm Heart Rate 80 /min 60-100 October 18, 2015 1:33pm Respiratory rate 18 /min -October 17, 201 6 1:33pm BP Systolic 120 mm[Hg] 100-140 October 18, 2015 1:33pm BP Diastolic 66 mm[Hg] 50-85 October 18, 2015 1:33pm BMI (Body Mass Index) 33.4 kg/m2 October 1:33pm Weight 78.01 kg November 30, 2015 8:45am Heart Rate 76 /min 60-100 November 30, 2015 8:45am Respiratory rate 18 /min -November 29, 201 6 8:45am Height 61 [in_i] July 20, 2 016 9:02am Weight 77.56 kg July 20, 2 016 9:02am Body Temperature 97.9 [degF] 97.6-99.6 July 20, 2016 9:02am Heart Rate 121 /min 60-100 July 20, 2 016 9:02am Respiratory rate 14 /min 12-July 20, 2016 9:02am Oxygen saturation by Pulse 98 % 95-100 Dece2015 9:02am oximetry BP Systolic 110 mm[Hg] 100-140 July 20, 2 016 9:02am BP Diastolic 70 mm[Hg] 50-85 July 20, 2 016 9:02am BMI (Body Mass Index) 32.3 kg/m2 July 052015 9:02am Weight 77.11 kg November 14, 2016 9:46am Heart Rate 107 /min 60-100 November 14, 2016 9:46am Respiratory rate 20 /min -November 14 201 7 9:46am Oxygen saturation by Pulse 99 % 95-100 November 14, 2016 9:46am oximetry BP Systolic 109 mm[Hg] 100-140 November 14, 2016 9:46am BP Diastolic 68 mm[Hg] 50-85 November 14, 2016 9:46am Height 61 [in_i] November 27, 2016 8:10am Weight 79.37 kg November 27, 2016 8:10am Body Temperature 98.7 [degF] 97.6-99.6 November 27 201 7 8:10am Heart Rate 84 /min 60-100 November 27, 2016 8:10am Respiratory rate 18 /min 07-28November 27 7 8:10am BP Systolic 118 mm[Hg] 100-140 November 27, 2016 8:10am BP Diastolic 70 mm[Hg] 50-85 November 27, 2016 8:10am BMI (Body Mass Index) 33.1 kg/m2 November 8:10am Height 61 [in_i] December 18, 2016 1 0:35am Weight 77.11 kg December 18, 2016 1 0:35am Heart Rate 75 /min 60-100 December 18, 2016 1 0:35am BP Systolic 119 mm[Hg] 100-140 December 18, 2016 1 0:35am BP Diastolic 81 mm[Hg] 50-85 December 18, 2016 1 0:35am BMI (Body Mass Index) 32.1 kg/m2 December 18, 2016 10:35am Height 61 [in_i] January 29, 2017 5:11pm Weight 77.11 kg January 29, 2017 5:11pm Heart Rate 68 /min 60-100 January 29, 2017 5:11pm BP Systolic 128 mm[Hg] 100-140 January 29, 2017 5:11pm BP Diastolic 88 mm[Hg] 50-85 January 29, 2017 5:11pm BMI (Body Mass Index) 32.1 kg/m2 January 29, 2017 5:11pm Weight 82.10 kg February 20, 2017 9:59pm Body Temperature 98.4 [degF] 97.6-99.6 February 20, 2017 9:59pm Heart Rate 86 /min 60-100 February 20, 2017 10:42pm Respiratory rate 18 /min 12-February 20, 2017 10:42pm Oxygen saturation by Pulse 98 % 95-100 February 20, 2017 10:42pm oximetry BP Systolic 133 mm[Hg] 100-140 February 20, 2017 10:42pm BP Diastolic 92 mm[Hg] 50-85 February 20, 2017 10:42pm Height 61 [in_i] February 22, 2017 8:01pm Weight 77.11 kg February 22, 2017 8:01pm Body Temperature 98.6 [degF] 97.6-99.6 February 22, 2017 8:01pm Heart Rate 76 /min 60-100 February 22, 2017 8:01pm Respiratory rate 16 /min -February 22, 2017 8:01pm Oxygen saturation by Pulse 99 % 95-100 February 22, 2017 8:01pm oximetry BP Systolic 120 mm[Hg] 100-140 February 22, 2017 8:01pm BP Diastolic 78 mm[Hg] 50-85 February 22, 2017 8:01pm BMI (Body Mass Index) 32.1 kg/m2 February 22, 2017 8:01pm Height 61 [in_i] February 27, 2017 11:41am Weight 77.11 kg February 27, 2017 11:41am BP Systolic 116 mm[Hg] 100-140 February 27, 2017 11:41am BP Diastolic 76 mm[Hg] 50-85 February 27, 2017 11:41am BMI (Body Mass Index) 32.1 kg/m2 February 27, 2017 11:41am Height 61 [in_i] March 28 7 5:07pm Weight 79.37 kg March 28 7 5:07pm Body Temperature 98.7 [degF] 97.6-99.6 Star[place] 24th, 20 17 5:07pm Heart Rate 64 /min 60-100 March 28, 201 7 5:07pm Respiratory rate 12 /min -March 28, 17 5:07pm BP Systolic 120 mm[Hg] 100-140 March 28, 201 7 5:07pm BP Diastolic 80 mm[Hg] 50-85 March 28, 201 7 5:07pm BMI (Body Mass Index) 33.1 kg/m2 March 5:07pm Height 62 [in_i] June 20, 2 017 8:03pm Weight 77.11 kg June 20, 2 017 8:03pm Body Temperature 98.5 [degF] 97.6-99.6 June 20, 2017 8:03pm Heart Rate 91 /min 60-100 June 20, 2 017 8:03pm Respiratory rate 16 /min -June 20, 2017 8:03pm Oxygen saturation by Pulse 98 % 95-100 2016 8:03pm oximetry BP Systolic 124 mm[Hg] 100-140 June 20, 2 017 8:03pm BP Diastolic 82 mm[Hg] 50-85 June 20, 2 017 8:03pm BMI (Body Mass Index) 31.1 kg/m2 June 052016 8:03pm Height 62 [in_i] July 01, 2 017 8:09am Weight 85.27 kg July 01, 2 017 8:09am Heart Rate 78 /min 60-100 July 01, 2 017 8:09am Respiratory rate 18 /min -July 01, 2017 8:09am BP Systolic 128 mm[Hg] 100-140 July 01, 2 017 8:09am BP Diastolic 76 mm[Hg] 50-85 July 01, 2 017 8:09am BMI (Body Mass Index) 34.4 kg/m2 June 062016 8:09am Weight 84.36 kg July 04, 2 017 8:40pm Body Temperature 97.9 [degF] 97.6-99.6 July 04, 2017 8:40pm Heart Rate 91 /min 60-100 July 04, 2 017 8:40pm Respiratory rate 18 /min -July 04, 2017 8:40pm Oxygen saturation by Pulse 100 % 95-100 2016 8:40pm oximetry BP Systolic 127 mm[Hg] 100-140 July 04, 2 017 9:08pm BP Diastolic 93 mm[Hg] 50-85 July 04, 2 017 9:08pm Weight 80.73 kg July 31, 2 017 4:48pm BP Systolic 120 mm[Hg] 100-140 July 31, 2 017 4:48pm BP Diastolic 74 mm[Hg] 50-85 July 31, 2 017 4:48pm Height 62 [in_i] August 26 8:08am Weight 81.64 kg August 26 8:08am Body Temperature 99.3 [degF] 97.6-99.6 August 26, 2 018 8:08am Heart Rate 88 /min 60-100 August 26 8:08am Respiratory rate 16 /min -August 26, 2 018 8:08am Oxygen saturation by Pulse 99 % 95-100 2017 8:08am oximetry BP Systolic 130 mm[Hg] 100-140 August 26 8:08am BP Diastolic 70 mm[Hg] 50-85 August 26 8:08am BMI (Body Mass Index) 32.9 kg/m2 August 262017 8:08am Height 62 [in_i] October 24, 2017 8:29pm Weight 79.37 kg October 24, 2017 8:29pm Body Temperature 98.6 [degF] 97.6-99.6 October 24 8 8:29pm Heart Rate 75 /min 60-100 October 24, 2017 8:29pm Respiratory rate 16 /min -October 24 8 8:29pm Oxygen saturation by Pulse 99 % 95-100 October 24, 2017 8:29pm oximetry BP Systolic 114 mm[Hg] 100-140 October 24, 2017 8:29pm BP Diastolic 72 mm[Hg] 50-85 October 24, 2017 8:29pm BMI (Body Mass Index) 32.0 kg/m2 October 8:29pm Weight 81.64 kg November 26, 2017 3:06pm Body Temperature 98.3 [degF] 97.6-99.6 November 26 8 3:06pm Heart Rate 71 /min 60-100 November 26, 2017 3:06pm Respiratory rate 18 /min -November 26, 201 8 3:06pm Oxygen saturation by Pulse 98 % 95-100 November 26, 2017 3:06pm oximetry BP Systolic 120 mm[Hg] 100-140 November 26, 2017 3:06pm BP Diastolic 90 mm[Hg] 50-85 November 26, 2017 3:06pm Height 62 [in_i] January 02, 2018 1 1:49am Weight 85.44 kg January 02, 2018 1 1:49am Heart Rate 68 /min 60-100 January 02, 2018 1 1:49am BP Systolic 122 mm[Hg] 100-140 January 02, 2018 1 1:49am BP Diastolic 74 mm[Hg] 50-85 January 02, 2018 1 1:49am BMI (Body Mass Index) 34.5 kg/m2 January 02, 2018 11:49am Height 62 [in_i] March 05, 2018 9:58am Weight 83.91 kg March 05, 2018 9:58am Body Temperature 98.9 [degF] 97.6-99.6 March 05 8 9:58am Heart Rate 72 /min 60-100 March 05, 2018 9:58am Respiratory rate 16 /min -March 05 8 9:58am BP Systolic 116 mm[Hg] 100-140 March 05, 2018 9:58am BP Diastolic 78 mm[Hg] 50-85 March 05, 2018 9:58am BMI (Body Mass Index) 33.8 kg/m2 March 9:58am Heart Rate 74 /min 60-100 April 10 018 10:59am Respiratory rate 16 /min -April 10, 2018 10:59am Oxygen saturation by Pulse 98 % 95-100 [facility] 2017 10:59am oximetry BP Systolic 126 mm[Hg] 100-140 April 10 2 018 10:59am BP Diastolic 84 mm[Hg] 50-85 April 10 2 018 10:59am Height 62 [in_i] April 16, 2018 9:49am Weight 88.45 kg April 16, 2018 9:49am Body Temperature 98.0 [degF] 97.6-99.6 April 16, 2018 9:49am Heart Rate 72 /min 60-100 April 16, 2018 9:49am Respiratory rate 16 /min -April 16, 2018 9:49am BP Systolic 124 mm[Hg] 100-140 April 16, 2018 9:49am BP Diastolic 76 mm[Hg] 50-85 April 16, 2018 9:49am BMI (Body Mass Index) 35.7 kg/m2 April 16, 2018 9:49am Weight 86.18 kg May 26 12:56pm Body Temperature 98.3 [degF] 97.6-99.6 May 26, 2 018 12:56pm Heart Rate 83 /min 60-100 May 26 12:56pm Respiratory rate 20 /min 12-24 May 26, 2 018 12:56pm Oxygen saturation by Pulse 99 % 95-100 Octob 2017 12:56pm oximetry BP Systolic 116 mm[Hg] 100-140 May 26 12:56pm BP Diastolic 74 mm[Hg] 50-85 May 26 12:56pm Height 62 [in_i] July 29, 2 019 6:16am Weight 97.52 kg July 29, 2 019 6:16am Body Temperature 97.7 [degF] 97.6-99.6 July 29, 2019 6:16am Heart Rate 92 /min 60-100 July 29, 2 019 6:16am Respiratory rate 16 /min -July 29, 2019 6:16am Oxygen saturation by Pulse 98 % 95-100 Dece 2018 6:16am oximetry BP Systolic 140 mm[Hg] 100-140 July 29, 2 019 6:16am BP Diastolic 94 mm[Hg] 50-85 July 29, 2 019 6:16am
--- OUTSIDE RECORDS SUMMARY | 2022-08-24 14:39 | XMS_ITS | Continuity of Care Document ---
:1990 Author Organization [facility] Address [address] [place] [address] Care Team Providers Name Role Phone Onelia Chow Primary Care Physician Allergies, Adverse Reactions, Alerts Allergen Type Severity Reaction Last Updated Verified Status No Known Allergies Allergy November 14, 2016 N Active Medications Active Medications Medication Dose Units Route Sig Qty Days Start Date St [facility] Levothyroxine [Synthroid] 225 mcg ORAL DAILY November 14, 2016 Active Amoxicillin-Pot 1 TAB ORAL TWICE A DAY 14 Apri 2016 Active Clavulanate [Augmentin] Problem [...] have a copy on file here at [facility]? No A [facility] 2016 10:20am Does patient have an Advanced Directive? No October 17, 2011 10:30am Pt has a Living Will? No October 17, 2011 10: 30am Pt has a Power of Home Health Physical Therapist? No October 16 10:30am Chief Complaint and [...] Atte nding Date Date Provider Departed [facility] Emergency November 14November 14, 2016 1:03pm [facility] Department 2016 9:32am Functional Status No known functional status. Immunizations No known immunizations. Payers Payer Policy Type Covered Covered Relationship Subscriber Subs criber Id Name Constitution Party Constitution Party Id PADMINI BARILLAS [id number] Self/Same as ERAN ARTIS [id number] CROSS OUT CHANDRA 7 Patient OF [facility] [address] PADMINI DICKSON [id number] Child-Son/Daught RANDOLPH SCHWARZ E [id number] CROSS (DO CHANDRA er NOT USE) SELF [...]
--- OUTSIDE RECORDS SUMMARY | 2022-08-24 14:39 | XMS_ITS | Continuity of Care Document ---
:[address] [facility] Address [address] [place] [address] Care Team Providers Name Role Phone Given, [...] November 22, 2016 56 mg/dL 40-60 [facility] Cholesterol Education Program (NCEP) has [...] have a copy on file here at [facility]? No A pril 2016 10:20am Does patient have an Advanced Directive? No October 17, 2011 10:30am Pt has a Living Will? No October 17, 2011 10: 30am Pt has a Power of Dining Car Conductor? No October 16 10:30am Hospital Discharge Instructions No known hospital discharge instructions. Hospital Discharge Medications Medication Dose Units Route Sig Qty Days Order Date Status In structions Levothyroxine 225 mcg ORAL DAILY November 142016 Amoxicillin-Pot 1 TAB ORAL TWICE A 28 November 14 Acti ve Clavulanate 2016 Encounters Encounter Facility Location Admit/Visit Discharge/Departure Atte nding Date Date Provider Departed [facility] November 22November 22, 2016 9:02pm Severiano Gallegos [facility] 2016 9:01pm Departed [facility] November 22November 22, 2016 8:58pm Severiano Gallegos [facility] 2016 8:57pm Departed [facility] In [facility] November 22November 22, 2016 2:58p m Sever[facility] Gallegos [facility] 2:57pm Departed [facility] Emergency November 14November 14, 2016 1:03pm Emergency Medical Center Department 2016 9:32am Functional Status No known functional status. Immunizations No known immunizations. Payers Payer Policy Type Covered Covered Relationship Subscriber Subs criber Id Name Democrat Democrat Id PADMINI BARLILAS [id number] Self/Same as ERAN ARTIS [id number] CROSS OUT CHANDRA 7 Patient OF [facility] PADMINI DICKSON [id number] Child-Son/Daught RANDOLPH Humphrey [id number] CROSS (DO CHANDRA er NOT USE) SELF [...]
--- OUTSIDE RECORDS SUMMARY | 2022-08-24 14:39 | XMS_ITS | Continuity of Care Document ---
:1990 Author Organization [facility] Address [address] [place] [address] Phone Care Team Providers Name Role Phone PCP, of Choice Primary Care Provider Unavailable Allergies, Adverse Reactions, Alerts No known allergies. Medications Medication Status Dose Units Route Directions Qty Days Start End Ins tructions Date Date Levothyroxine Active 225 MCG PO DAILY November (Synthroid) , 200 mcg 2017 Tablet 8:51am Amoxicillin-P Disconti 1 TAB PO TWICE A DAY November y ot nued , Clavulanate 2016 2016 (Augmentin) 11:47am 9:02pm 875-125 mg tablet Mirena Active May 26, 2018 11:55am valacyclovir Disconti Novemberem nued 2017 6th, 2:17pm 2017 9:59am Hydroxyzine Disconti 50 MG PO FOUR TIMES Apr em Hcl nued DAILY er 2017, 10:24am 2017 11:04p m Metronidazole Active 1 appful VAG .qhs 70 5 Novem r 2019 4:57pm Problems Active Problems Medical Problem Onset Date [...] Onset Date Status Concussion Resolved Anxiety Resolved Resolved Contusion of toe of right foot Resolved Procedures Procedure Date Performed Status Wet Prep June 25, 2020 completed Relevant Diagnostic Tests and/or Laboratory Data Microbiology Results Procedure Source Result Collection Result Result Performin g Site Date/Time Date/Time Comment Wet Prep Vaginal June 25June 25, [facility], [address] [facility] 2019 2:20pm 2019 2:32pm [place] [address] Advance Directives Advance Directive Response Recorded Date/Time Does patient have an Advanced Directive? No October 17, 2011 9:30am Do we have a copy on file here at [facility]? No A pril 2016 9:20am Pt has a Living Will? No October 17, 2011 9 :30am Do we have a copy on file here at [facility]? No A pril 2016 9:20am Pt has a Power of [employer]? No October 17, 2011 9:30am Do we have a copy on file here at [facility]? No A pril 2016 9:20am Encounters Encounter Location(s) Arrival/Admit Date Discharge/Depart Date Provider(s) Departed [facility] June 25June 25, 2020 null Emergency [facility] 2019 1:06pm 2:29pm [facility] Assessments No Assessments Information Available Family History Relationship Condition Age at Onset Recorded Date/Ti me Parent Hypertension Unknown Functional Status Observation Response Date Recorded Living Situation Alone June 25, 2020 2:25pm Goals Goals may be documented in an alternate section. Immunizations Immunization Event Date Not Given Dose Telephone Interviewer Lot Vac cine Reason Number Number Informatio n Statement (VIS) Deta il DTP vaccine (H) May 16, 1990 DTP vaccine (H) December 13, 2011 DT Vaccine PED November 28, 1990 DT Vaccine PED October 22, 1991 DT Vaccine PED December 10, 1995 Hepatitis B Adult April 02, Vaccine 1996 Hepatitis B Adult April Vaccine 1996 Hepatitis B Adult October 13, Vaccine [...] Insurance Providers Guarantor ERAN ARTIS Address [address] [address] Contact Info. Home Phone: Payer Policy Id Coverage Id Subscriber's Subscriber Id Effective E xpiration Name Date Date [facility] [id number] ERAN ARTIS [id number] OUT OF STATE 537 7 FINANCIAL 50% 50% ERAN ARTIS 50% ASSISTANCE [facility] [id number] RANDOLPH ARTIS [id number] August 09 [place] (DO NOT 2008 USE) SELF PAY Self N/A Plan of Treatment Future Tests Future scheduled test information is unavailable Pending Tests Pending diagnostic test information is unavailable Future Visits Future appointment information is unavailable Referrals to Other Providers Reason for Referral Start Provider Provider Contact Provider Address Referral Date Information Pcp No Pcp No Pcp No Pcp No Landry Escobar Work Phone: [facility] [place] [address] [facility] [place] [address] Onelia Chow , Work Phone: [address] [facility] [address] Onelia Chow , Work Phone: [address] [id number] [address] Chio Gleason , Work Phone: [address] [place] [address] [facility] [address] [facility] [phone] Future Procedures Future procedure information is unavailable Future Medications Future medication information is unavailable Patient Instructions Headaches Sinus Sinusitis Causes Sinusitis Acute Sinusitis Self Care Tampons Sanitary Pads Ch Teen Contusion Bone Tx Concussion, Adult (DC) Diarrhea in Adolescents and Adults COVID 19 General Instructions- decrease the spread of coronavirus ([facility]) Social History Smoking Status Status Date of Observation Never smoked tobacco (finding) June 25, 2020 2:2 5pm Observation Status Observation Response Date of Response Alcohol Use Yes June 25, 2020 2:25pm alcohol intake frequency holidays/special occasions only Jun 2:25pm substance use type does not use June 25, 2020 2:25pm Smoking Status Never smoker June 25, 2020 2:25pm Assigned Sex Female Vital Signs Vital Reading Result Reference Range Collection Date/ Time Height 62 [in_i] June 25 1:20pm Weight 97.52 kg June 25 1:20pm Body Temperature 98.1 [degF] 97.6-99.6 June 25, 2020 1:20pm Heart Rate 96 /min 60-100 June 25 020 1:20pm Respiratory rate 16 /min 12-24 June 25, 2020 1:20pm Oxygen saturation by Pulse 98 % 95-100 Novem 2019 1:20pm oximetry BP Systolic 122 mm[Hg] 100-140 June 25 020 1:20pm BP Diastolic 76 mm[Hg] 50-85 June 25 020 1:20pm BMI (Body Mass Index) 39.3 kg/m2 June 062019 1:20pm
[2022-08-24 18:13] LABS: TSH (W/Ref FT4) 151.13 uIU/mL (0.36-3.74)
[2022-08-24 18:30] LABS: FREE T4 0.45 ng/dL (0.76-1.46)
== END 2022-08-24 14:36 | disposition home or self-care (01) ==
LOC: LBO 14:36
PROVIDERS: PCP Nurse Practitioner Family; Visit Provider Nurse Practitioner Family
DX: E03.9 Hypothyroidism, unspecified (principal)
CPT/HCPCS: 36415; 84439; 84443

== ENCOUNTER 2022-08-30 16:02 | Outpatient (CLI) | payer BC, SELFPAY ==
[2022-08-30 17:16] LABS: TSH 62.91 uIU/mL (0.36-3.74)
[2022-09-03 10:34] LABS: Thyroglobulin Antibody 120 U/mL (<=60); Thyroperoxidase Antibody 91 U/mL (<=60)
== END 2022-08-30 16:03 | disposition home or self-care (01) ==
LOC: LBO 16:03
PROVIDERS: PCP Nurse Practitioner Family; Visit Provider Nurse Practitioner Family
DX: E03.9 Hypothyroidism, unspecified (principal)
CPT/HCPCS: 36415; 86376; 84443

== ENCOUNTER 2022-08-30 16:23 | Outpatient (REF) | payer BC, SELFPAY | END 2022-08-30 16:24 | disposition home or self-care (01) | LOC: LBN 16:23 | PROVIDERS: PCP Nurse Practitioner Family; Visit Provider Advanced Practice Midwife | DX: B96.89 Other specified bacterial agents as the cause of diseases classified elsewhere (principal); N76.0 Acute vaginitis; R21 Rash and other nonspecific skin eruption | CPT/HCPCS: 87480; 87510; 87660 ==

== ENCOUNTER 2022-09-24 12:34 | Outpatient (CLI) | payer BC, SELFPAY ==
[2022-09-27 00:59] LABS: HSV 1 PCR Negative (Negative); HSV 2 PCR Positive (Negative)
== END 2022-09-24 12:35 | disposition home or self-care (01) ==
LOC: LBO 12:35
PROVIDERS: PCP Nurse Practitioner Family; Visit Provider Advanced Practice Midwife
DX: N76.0 Acute vaginitis (principal)
CPT/HCPCS: 87529; 87480; 87510; 87660

== ENCOUNTER 2023-07-15 18:20 | Outpatient (REF) | payer BC, SELFPAY | END 2023-07-15 18:21 | disposition home or self-care (01) | LOC: LBN 18:20 | PROVIDERS: PCP Nurse Practitioner Family; Visit Provider Nurse Practitioner Family | DX: J02.9 Acute pharyngitis, unspecified (principal) | CPT/HCPCS: 87070 ==

== ENCOUNTER 2024-03-09 18:55 | Outpatient (CLI) | payer BC, SELFPAY ==
[2024-03-09 16:45] LABS: HCT 42.2 % (36.0-46.0); HGB 13.8 g/dL (11.2-15.7); MCHC 32.7 % (32.0-36.0); MCV 98 fL (80-95); MPV 9.3 fL (8.0-11.0); Platelet Count 367 10^3/uL (130-400); RBC 4.31 10^6/uL (3.93-5.22); RDW 12.5 % (11.7-14.6); RDW-SD 45.1 fL
[2024-03-09 20:14] LABS: ALT 24 U/L (14-59); AST 15 U/L (15-37); Albumin 4.5 g/dL (3.4-5.0); Alkaline Phosphatase 69 U/L (46-116); Anion Gap 9.8 mmol/L (3-11); BUN 11 mg/dL (7-18); Bilirubin, Total 0.48 mg/dL (0.2-1.0); CO2 28.2 mmol/L (21.0-32.0); CREATININE 1.2 mg/dL (0.55-1.02); Calcium 9.3 mg/dL (8.5-10.1); Chloride 101 mmol/L (98-107); Estimated GFR 60.92 (mL/min/1.73m2); Glucose 88 mg/dL (74-106); Potassium 3.8 mmol/L (3.5-5.1); Sodium 139 mmol/L (136-145); Vitamin D 25 Total 17.4 ng/mL (30-100)
[2024-03-09 21:33] LABS: TSH (W/Ref FT4) 316.79 uIU/mL (0.36-3.74)
[2024-03-09 22:06] LABS: FREE T4 0.31 ng/dL (0.76-1.46)
[2024-03-10 10:15] LABS: Lab Add On Test DONE
[2024-03-10 18:47] LABS: Hemoglobin A1C 4.6 % (<5.7)
== END 2024-03-09 18:56 | disposition home or self-care (01) ==
LOC: LBO 18:56
PROVIDERS: Advanced Practice Midwife; PCP Nurse Practitioner Family; Visit Provider Advanced Practice Midwife
DX: E03.9 Hypothyroidism, unspecified (principal); Z31.69 Encounter for other general counseling and advice on procreation
CPT/HCPCS: 36415; 80053; 82306; 85027; 83036; 84439; 84443

== ENCOUNTER 2024-06-15 10:50 | Outpatient (REF) | payer BC, SELFPAY | END 2024-06-15 10:51 | disposition home or self-care (01) | LOC: LBN 10:50 | PROVIDERS: PCP Nurse Practitioner Family; Visit Provider Advanced Practice Midwife | DX: N89.8 Other specified noninflammatory disorders of vagina (principal) | CPT/HCPCS: 87480; 87510; 87660 ==

== ENCOUNTER 2024-08-07 16:47 | Outpatient (REF) | payer BC, SELFPAY ==
[2024-08-07 22:48] LABS: TSH (W/Ref FT4) 42.08 uIU/mL (0.36-3.74)
== END 2024-08-07 16:48 | disposition home or self-care (01) ==
LOC: LBN 16:47
PROVIDERS: PCP Nurse Practitioner Family; Visit Provider Nurse Practitioner Family
DX: E03.9 Hypothyroidism, unspecified (principal); F41.8 Other specified anxiety disorders
CPT/HCPCS: 84439; 84443

== ENCOUNTER 2024-10-30 01:02 | Outpatient (CLI) | payer BC, SELFPAY ==
[2024-10-30 10:24] LABS: Hemoglobin A1C 4.9 % (<5.7)
[2024-10-30 10:40] LABS: TSH (W/Ref FT4) 95.27 uIU/mL (0.36-3.74)
[2024-10-30 10:55] LABS: FREE T4 0.79 ng/dL (0.76-1.46)
== END 2024-10-30 01:03 | disposition home or self-care (01) ==
LOC: LBO 01:02
PROVIDERS: PCP Nurse Practitioner Family; Visit Provider Advanced Practice Midwife
DX: E03.9 Hypothyroidism, unspecified (principal); E66.01 Morbid (severe) obesity due to excess calories
CPT/HCPCS: 36415; 83036; 84439; 84443

== ENCOUNTER 2024-12-10 21:40 | Outpatient (REF) | payer BC, SELFPAY | END 2024-12-10 21:41 | disposition home or self-care (01) | LOC: LBN 21:40 | PROVIDERS: PCP Nurse Practitioner Family; Visit Provider Physician Assistant Medical | DX: J02.9 Acute pharyngitis, unspecified (principal) | CPT/HCPCS: 87070 ==

== ENCOUNTER 2024-12-14 04:35 | Outpatient (CLI) | payer BC, SELFPAY ==
[2024-12-14 12:58] LABS: Abs Immature Grans 0.04 10^3/uL (0.0-0.06); Absolute Basophil Count 0.06 10^3/uL (0.0-0.2); Absolute Eosinophil Count 0.08 10^3/uL (0.0-0.7); Absolute Lymphocyte Count 1.69 10^3/uL (1.2-3.4); Absolute Neutrophil Count 6.68 10^3/uL (1.2-6.7); Basophils % 0.7 %; Eosinophils % 0.9 %; HCT 37.1 % (36.0-46.0); HGB 12.6 g/dL (11.2-15.7); Immature Grans % 0.4 %; Lymphocytes % 18.5 %; MCH 30.3 pg (27.0-33.0); MCV 89 fL (80-95); MPV 9.3 fL (8.0-11.0); Monocytes % 6.6 %; Neutrophils % 72.9 %; Platelet Count 424 10^3/uL (130-400); RBC 4.16 10^6/uL (3.93-5.22); RDW 11.9 % (11.7-14.6); RDW-SD 38.4 fL; WBC 9.15 10^3/uL (4.4-10.8)
[2024-12-14 14:26] LABS: Panorama Kit Sent via Fed Ex
[2024-12-15 08:28] LABS: Rubella IgG Ab (UVM) Negative (See Note)
[2024-12-15 08:29] LABS: Varicella IgG Antibody Positive (See Note)
[2024-12-15 11:22] LABS: Hepatitis B Surface Ag Negative (Negative)
[2024-12-15 11:59] LABS: HIV-1/2 Ag & Ab Screen Negative (Negative)
[2024-12-15 12:08] LABS: Hepatitis C Ab w Rflx HCV PCR Negative (Negative)
[2024-12-16 00:50] LABS: ALT 163 U/L (14-59); AST 64 U/L (15-37); Alkaline Phosphatase 86 U/L (46-116); Anion Gap 12.1 mmol/L (3-11); BUN 6 mg/dL (7-18); Bilirubin, Total 0.5 mg/dL (0.2-1.0); CO2 23.9 mmol/L (21.0-32.0); CREATININE 0.6 mg/dL (0.55-1.02); Calcium 9.8 mg/dL (8.5-10.1); Chloride 101 mmol/L (98-107); Estimated GFR 119.97 (mL/min/1.73m2); Glucose 83 mg/dL (74-106); Potassium 4.1 mmol/L (3.5-5.1); Sodium 137 mmol/L (136-145); TSH (W/Ref FT4) 0.22 uIU/mL (0.36-3.74); Total Protein 7.3 g/dL (6.4-8.2)
[2024-12-16 01:07] LABS: FREE T4 1.55 ng/dL (0.76-1.46)
[2024-12-16 16:41] LABS: Specimen WB Whole Blood
[2024-12-16 16:55] LABS: Syphilis IgG w/Reflex Nonreactive (Nonreactive)
[2024-12-30 14:59] LABS: Result Summary NEGATIVE; Specimen WB Whole Blood
== END 2024-12-14 04:36 | disposition home or self-care (01) ==
LOC: LBO 04:35
PROVIDERS: Advanced Practice Midwife; PCP Nurse Practitioner Family; Visit Provider Advanced Practice Midwife
DX: Z34.91 Encounter for supervision of normal pregnancy, unspecified, first trimester (principal)
CPT/HCPCS: 36415; 80053; 81220; 81222; 81329; 86787; 86803; 86850; 86900; 86901; 87340; 87389; 84439; 84443; 85025; 86762; 86780

== ENCOUNTER 2024-12-14 12:30 | Outpatient (REF) | payer BC, SELFPAY ==
[2024-12-15 11:57] LABS: Chlamydia Result Negative (Negative); GC Result Negative (Negative)
[2024-12-15 18:55] LABS: COMMENT (LAB VIEW ONLY) 126.77 mg/dL; PROTEIN 14.9 mg/dL; Prot/Crea Ur Ratio 0.11
== END 2024-12-14 12:31 | disposition home or self-care (01) ==
LOC: LBN 12:30
PROVIDERS: PCP Nurse Practitioner Family; Visit Provider Advanced Practice Midwife
DX: Z34.91 Encounter for supervision of normal pregnancy, unspecified, first trimester (principal)
CPT/HCPCS: 87491; 87591; 82565; 84156; 87086

== ENCOUNTER 2024-12-21 15:10 | Outpatient (CLI) | payer BC, SELFPAY ==
[2024-12-21 16:25] VITALS: BP 125/82; PULSE 81; RESP 18; O2SAT 99
== END 2024-12-21 18:00 | disposition other institution (70) ==
LOC: BCD 15:12 → OBS 16:24
PROVIDERS: PCP Nurse Practitioner Family; Visit Provider Advanced Practice Midwife
DX: O36.80X0 Pregnancy with inconclusive fetal viability, not applicable or unspecified (principal)
CPT/HCPCS: G0378

== ENCOUNTER 2025-06-17 13:53 | Outpatient (REF) | payer BC, SELFPAY ==
[2025-06-18 12:18] LABS: HSV 1 DNA Result Negative (Negative); HSV 2 DNA Result Negative (Negative)
== END 2025-06-17 13:54 | disposition home or self-care (01) ==
LOC: LBN 13:53
PROVIDERS: PCP Nurse Practitioner Family; Visit Provider Obstetrics & Gynecology
DX: Z3A.29 29 weeks gestation of pregnancy (principal); A60.09 Herpesviral infection of other urogenital tract
CPT/HCPCS: 87529